=== PATIENT | male | born 1930 | race Caucasian/White ===

== ENCOUNTER 2016-08-19 15:51 | Emergency (ER) | payer MEDICARE, MEDICAID ==
[2016-08-19] MEDS ORDERED: NORMAL SALINE 1000 ML 1,000 ML IV PRN (15:59)
[2016-08-19] MEDS ORDERED: ONDANSETRON HCL INJ/PF 4 MG/2 ML SDV IV ONE (16:14)
--- NOTE | 2016-08-19 16:15 | ER Document Report ---
ED Medical Screen (RME) - General Chief Complaint: Abdominal Cramping Stated Complaint: DIARRHEA,SHORTNESS OF BREATH Time Seen by Provider: 08/19/16 15:59 Mode of Arrival: Ambulatory Information source: Patient TRAVEL OUTSIDE OF THE [place] IN LAST 30 DAYS: No - HPI Patient complains to provider of: Diarrhea Onset: Yesterday Onset/Duration: Sudden Quality of pain: Achy, Cramping Associated Symptoms: Abdominal pain, Diarrhea, Shortness of breath, Weakness Notes: 08/19/16 16:14 Patient is an 85-year-old male with history of diabetes who presents to the emergency room complaining of diarrhea that has been bothering him since yesterday, he reports mild crampy abdominal pain but no vomiting, no nausea, no fever chills, no sick contacts, no questionable food intake, no recent antibiotic - Related Data Allergies/Adverse Reactions: No Known Allergies Allergy (Verified 08/19/16 15:57) Past Medical History - Social History Chew tobacco use (# tins/day): No Frequency of alcohol use: None Drug Abuse: None - Past Medical History Cardiac Medical History: Reports: Hx Hypercholesterolemia, Hx Hypertension Endocrine Medical History: Reports: Hx Diabetes Mellitus Type 2 Renal/ Medical History: Denies: Hx Peritoneal Dialysis Past Surgical History: Reports: Hx Appendectomy, Hx Urinary Tract Surgery - prostate, Hx Vascular Surgery - Immunizations Hx Diphtheria, Pertussis, Tetanus Vaccination: Yes Physical Exam - Vital signs Vitals: Temp Pulse Resp BP Pulse Ox 98.0 F 65 22 H 125/62 94 08/19/16 15:58 08/19/16 15:58 08/19/16 15:58 08/19/16 15:58 08/19/16 15:58 Course - Vital Signs Vital signs: Temp Pulse Resp BP Pulse Ox 98.0 F 65 22 H 125/62 94 08/19/16 15:58 08/19/16 15:58 08/19/16 15:58 08/19/16 15:58 08/19/16 15:58
[2016-08-19 16:35] LABS: ABSOLUTE EOSINOPHILS # (AUTO) 0.2 10^3/uL (0.0-0.6); ABSOLUTE LYMPHOCYTES (AUTO) 1.9 10^3/uL (0.5-4.7); ABSOLUTE MONOCYTES (AUTO) 0.5 10^3/uL (0.1-1.4); ABSOLUTE NEUT (AUTO) 4.7 10^3/uL (1.7-8.2); BASOPHILS % (AUTO) 0.6 % (0-2); EOSINOPHILS % (AUTO) 2.9 % (0-6); HEMATOCRIT 44.9 % (37.9-51.0); HEMOGLOBIN 15.1 g/dL (13.5-17.0); HGB HCT DIFFERENCE 0.4; LYMPHOCYTES % (AUTO) 25.6 % (13-45); MEAN CORPUSCULAR HEMOGLOBIN 31.3 pg (27.0-33.4); MEAN CORPUSCULAR HGB CONC 33.5 g/dL (32.0-36.0); MEAN CORPUSCULAR VOLUME 93 fl (80-97); MONOCYTES % (AUTO) 7.2 % (3-13); RED BLOOD COUNT 4.81 10^6/uL (4.35-5.55); RED CELL DISTRIBUTION WIDTH 13.3 % (11.5-14.0); SEGMENTED NEUTROPHILS % (AUTO) 63.7 % (42-78); WHITE BLOOD COUNT 7.3 10^3/uL (4.0-10.5)
[2016-08-19 16:55] LABS: ALANINE AMINOTRANSFERASE 22 U/L (21-72); ALBUMIN 4.2 g/dL (3.5-5.0); ALKALINE PHOSPHATASE 62 U/L (38-126); ANION GAP 9 (5-19); ASPARTATE AMINO TRANSFERASE 21 U/L (17-59); BILIRUBIN,DIRECT 0.3 mg/dL (0.0-0.4); BILIRUBIN,TOTAL 0.5 mg/dL (0.2-1.3); BLOOD UREA NITROGEN 16 mg/dL (7-20); CALCIUM 9.5 mg/dL (8.4-10.2); CARBON DIOXIDE 30 mmol/L (22-30); CHLORIDE 101 mmol/L (98-107); CREATININE RESULT 0.99 mg/dL (0.52-1.25); GLUCOSE 160 mg/dL (75-110); LIPASE 61.6 U/L (23-300); POTASSIUM 4.8 mmol/L (3.6-5.0); SODIUM 139.5 mmol/L (137-145); TOTAL PROTEIN 6.7 g/dL (6.3-8.2)
--- NOTE | 2016-08-19 17:21 | ER Document Report ---
ED GI/ - General Mode of Arrival: Ambulatory TRAVEL OUTSIDE OF THE [place] IN LAST 30 DAYS: No - HPI Associated symptoms: Diarrhea, Dizzy <NORMA TRIPP - Last Filed: 08/19/16 17:41> <GARRY BARNARD - Last Filed: 08/19/16 19:52> - General Chief Complaint: Abdominal Cramping Stated Complaint: DIARRHEA,SHORTNESS OF BREATH Time Seen by Provider: 08/19/16 15:59 Notes: Patient is an 85 year old male presenting to the emergency department for diarrhea that was onset yesterday. Patient also complains of some dizziness and abdominal pain. Patient states he did eat today. Patient denies any nausea, vomiting, fevers, chills, dysuria, or recent antibiotics. Patient states he is feeling much better during the exam and after his IV fluids; patient is requesting to go home now. Patient has a history of type II diabetes mellitus, hypertension, and hypercholesterolemia. (NORMA TRIPP) - Related Data Allergies/Adverse Reactions: No Known Allergies Allergy (Verified 08/19/16 15:57) Past Medical History - General Information source: Patient - Social History Smoking Status: Current Every Day Smoker Chew tobacco use (# tins/day): No Frequency of alcohol use: None Drug Abuse: None Family History: None Patient has suicidal ideation: No Patient has homicidal ideation: No - Past Medical History Cardiac Medical History: Reports: Hx Hypercholesterolemia, Hx Hypertension Endocrine Medical History: Reports: Hx Diabetes Mellitus Type 2 Past Surgical History: Reports: Hx Appendectomy, Hx Urinary Tract Surgery - prostate, Hx Vascular Surgery - Immunizations Hx Diphtheria, Pertussis, Tetanus Vaccination: Yes <NORMA TRIPP - Last Filed: 08/19/16 17:41> Review of Systems - Review of Systems Constitutional: No symptoms reported EENT: No symptoms reported Cardiovascular: See HPI, Dizziness Respiratory: No symptoms reported Gastrointestinal: See HPI, Abdominal pain, Diarrhea Genitourinary: No symptoms reported Male Genitourinary: No symptoms reported Musculoskeletal: No symptoms reported Skin: No symptoms reported Hematologic/Lymphatic: No symptoms reported Neurological/Psychological: No symptoms reported -: Yes All other systems reviewed and negative <NORMA TRIPP - Last Filed: 08/19/16 17:41> Physical Exam - Vital signs Interpretation: Normal - General General appearance: Appears well, Alert - HEENT Head: Normocephalic, Atraumatic Eyes: Normal Pupils: PERRL - Respiratory Respiratory status: No respiratory distress Chest status: Nontender Breath sounds: Normal Chest palpation: Normal - Cardiovascular Rhythm: Regular Heart sounds: Normal auscultation Murmur: No - Abdominal Inspection: Normal Distension: No distension Bowel sounds: Normal Tenderness: Nontender Organomegaly: No organomegaly - Back Back: Normal, Nontender - Extremities General upper extremity: Normal inspection, Nontender, Normal color, Normal ROM , Normal temperature General lower extremity: Normal inspection, Nontender, Normal color, Normal ROM , Normal temperature, Normal weight bearing. No: Susana's sign - Neurological Neuro grossly intact: Yes Cognition: Normal Orientation: AAOx4 [place] Coma Scale Eye Opening: Spontaneous [place] Coma Scale Verbal: Oriented [place] Coma Scale Motor: Obeys Commands [place] Coma Scale Total: 15 Speech: Normal Motor strength normal: LUE, RUE, LLE, RLE Sensory: Normal - Psychological Associated symptoms: Normal affect, Normal mood - Skin Skin Temperature: Warm Skin Moisture: Dry Skin Color: Normal <GARRY BARNARD - Last Filed: 08/19/16 19:52> - Vital signs Vitals: Temp Pulse Resp BP Pulse Ox 98.0 F 65 22 H 125/62 94 08/19/16 15:58 08/19/16 15:58 08/19/16 15:58 08/19/16 15:58 08/19/16 15:58 Course - Laboratory Result Diagrams: 08/19/16 16:23 08/19/16 16:23 <NORMA TRIPP - Last Filed: 08/19/16 17:41> - Laboratory Result Diagrams: 08/19/16 16:23 08/19/16 16:23 <GARRY BARNARD - Last Filed: 08/19/16 19:52> - Re-evaluation Re-evalutation: 08/19/16 17:42 Reevaluated patient at this time. Discussed blood work lab results with patient and answered all questions. (NORMA TRIPP) 08/19/16 17:50 Patient is feeling well at this time. No further diarrhea. No abdominal pain or tenderness. Blood work within normal limits. Patient is not orthostatic. He is ambulating without difficulty. Stable for discharge home. Return if any worsening or concerning symptoms. (GARRY BARNARD) - Vital Signs Vital signs: Temp Pulse Resp BP Pulse Ox 98.0 F 59 L 16 117/56 L 98 08/19/16 15:58 08/19/16 18:05 08/19/16 18:05 08/19/16 18:05 08/19/16 18:05 - Laboratory Laboratory results interpreted by me: 08/19/16 16:23 Glucose 160 H Discharge <NORMA TRIPP - Last Filed: 08/19/16 17:41> <GARRY BARNARD - Last Filed: 08/19/16 19:52> - Discharge Clinical Impression: Dehydration Diarrhea Qualifiers: Diarrhea type: unspecified type Qualified Code(s): R19.7 - Diarrhea, unspecified Condition: Stable Disposition: HOME, SELF-CARE Instructions: Diarrhea, Nonspecific ([facility]), Dehydration ([facility]) Referrals: EDNA ALTMAN MD [Primary Care Provider] - Follow up as needed Scribe Attestation: 08/19/16 19:52 I personally performed the services described in the documentation, reviewed and edited the documentation which was dictated to the scribe in my presence, and it accurately records my words and actions. (GARRY BARNARD) Scribe Documentation - Scribe Written by Maura:: Maura Purvis 08/19/16 17:23 acting as scribe for :: Colt <NORMA TRIPP - Last Filed: 08/19/16 17:41>
[2016-08-19 18:18] VITALS: BP 117/56
== END 2016-08-19 18:15 | disposition home or self-care (01) ==
LOC: ER 15:51
DX: E86.0 Dehydration (principal); R19.7 Diarrhea, unspecified; R10.9 Unspecified abdominal pain; R06.02 Shortness of breath; E11.9 Type 2 diabetes mellitus without complications; I10 Essential (primary) hypertension; E78.00 Pure hypercholesterolemia, unspecified; F17.200 Nicotine dependence, unspecified, uncomplicated
CPT/HCPCS: 99284; 96361; 96374; 36415; 83690; 85025; 80053; J2405; J7030

== ENCOUNTER 2016-10-12 17:54 | Inpatient (IN) | payer MEDICARE, MEDICAID ==
[2016-10-12 19:25] LABS: ABSOLUTE MONOCYTES (AUTO) 0.9 10^3/uL (0.1-1.4); ABSOLUTE NEUT (AUTO) 6.6 10^3/uL (1.7-8.2); BASOPHILS % (AUTO) 0.3 % (0-2); EOSINOPHILS % (AUTO) 0.1 % (0-6); HEMATOCRIT 42.8 % (37.9-51.0); HEMOGLOBIN 14.7 g/dL (13.5-17.0); HGB HCT DIFFERENCE 1.3; LYMPHOCYTES % (AUTO) 11.8 % (13-45); MEAN CORPUSCULAR HEMOGLOBIN 32.4 pg (27.0-33.4); MEAN CORPUSCULAR HGB CONC 34.4 g/dL (32.0-36.0); MEAN CORPUSCULAR VOLUME 94 fl (80-97); MONOCYTES % (AUTO) 10.4 % (3-13); RED BLOOD COUNT 4.55 10^6/uL (4.35-5.55); SEGMENTED NEUTROPHILS % (AUTO) 77.4 % (42-78); WHITE BLOOD COUNT 8.5 10^3/uL (4.0-10.5)
--- NOTE | 2016-10-12 19:26 | RADIOLOGY REPORT (SQ) ---
EXAM DESCRIPTION: CT HEAD WITHOUT COMPLETED DATE/TIME: 10/12/2016 7:20 pm REASON FOR STUDY: ams COMPARISON: 10/13/2015 TECHNIQUE: Axial images acquired through the brain without intravenous contrast. Images reviewed wi th bone, brain and subdural windows. Images stored on PACS. All CT scanners at this facility use dose modulation, iterative reconstruction, and/or weight based d osing when appropriate to reduce radiation dose to as low as reasonably achievable (ALARA). [facility]: Dose Right [facility]: CareDose [facility]: Dose Right [facility]: Teradose 4D [facility]: [employer] RADIATION DOSE: mGy. LIMITATIONS: None. FINDINGS: VENTRICLES: Prominent. CEREBRUM: No masses. No hemorrhage. No midline shift. Areas of low density in the white matter mos t likely due to chronic micro-vascular ischemic change. No evidence for acute infarction. CEREBELLUM: No masses. No hemorrhage. No alteration of density. No evidence for acute infarction. EXTRAAXIAL SPACES: Mild age-related involutional change. No fluid collections. No masses. ORBITS AND GLOBE: No intra- or extraconal masses. Normal contour of globe without masses. CALVARIUM: No fracture. PARANASAL SINUSES: No fluid or mucosal thickening. SOFT TISSUES: No mass or hematoma. OTHER: No other significant finding. IMPRESSION: MILD CHRONIC CHANGES OF ATROPHY AND MICROVASCULAR ISCHEMIA. NO ACUTE PROCESS. TECHNICAL DOCUMENTATION: JOB ID: [id number] Quality ID # [id number]: Final reports with documentation of one or more dose reduction techniques (e.g., Au tomated exposure control, adjustment of the mA and/or kV according to patient size, use of iterative reconstruction technique) 2010 [employer]- All Rights Reserved
[2016-10-12 19:42] LABS: ALANINE AMINOTRANSFERASE 50 U/L (21-72); ALBUMIN 4.3 g/dL (3.5-5.0); ALKALINE PHOSPHATASE 103 U/L (38-126); ANION GAP 10 (5-19); ASPARTATE AMINO TRANSFERASE 120 U/L (17-59); BILIRUBIN,DIRECT 0.5 mg/dL (0.0-0.4); BILIRUBIN,TOTAL 1.7 mg/dL (0.2-1.3); BLOOD UREA NITROGEN 16 mg/dL (7-20); CALCIUM 9.2 mg/dL (8.4-10.2); CARBON DIOXIDE 27 mmol/L (22-30); CHLORIDE 87 mmol/L (98-107); CREATININE RESULT 0.86 mg/dL (0.52-1.25); GLUCOSE 105 mg/dL (75-110); POTASSIUM 4.8 mmol/L (3.6-5.0); SODIUM 124.2 mmol/L (137-145); TOTAL PROTEIN 6.5 g/dL (6.3-8.2)
[2016-10-12] MEDS ORDERED: THIAMINE HCL 100 MG, FOLIC ACID 1 MG in NORMAL SALINE 50 ML IV ONE (21:22)
--- NOTE | 2016-10-12 21:25 | ER Document Report ---
ED General - General Chief Complaint: Other Stated Complaint: HALLUCINATIONS Time Seen by Provider: 10/12/16 18:18 Notes: Patient is an 86-year-old male with a past medical history of chronic anxiety, hypertension, hyperlipidemia, alcohol abuse who presents with concerns of visual hallucinations. Patient states that he saw a man on his couch who he was unable to wake up. States when he walked outside and came back in that man was gone and he recognized that this was a hallucination. Patient reports a chronic history of alcoholism although was in complete remission for the past 30 years with only a relapse approximately 6 months ago and again starting approximately 3 weeks ago. Per family at the bedside, patient has been drinking large quantities of wine. Patient states he did decide to stop drinking today approximately 6-8 hours prior to having the episode of visual hallucinations. He has had a history of comp acute withdrawals in the past. Admits to poor oral intake other than alcohol for the last several weeks. Denies any symptoms at the time of my assessment. He has not noted that anything to improve or worsen his symptoms. He has not spoken to his primary care doctor regarding today's concerns. TRAVEL OUTSIDE OF THE [place] IN LAST 30 DAYS: No - Related Data Allergies/Adverse Reactions: No Known Allergies Allergy (Verified 08/19/16 15:57) Past Medical History - General Information source: Patient, Relative - Social History Smoking Status: Current Every Day Smoker Chew tobacco use (# tins/day): No Frequency of alcohol use: Occasional Drug Abuse: None Lives with: Alone Family History: Reviewed & Not Pertinent - Past Medical History Cardiac Medical History: Reports: Hx Hypercholesterolemia, Hx Hypertension Endocrine Medical History: Reports: Hx Diabetes Mellitus Type 2 Renal/ Medical History: Denies: Hx Peritoneal Dialysis Past Surgical History: Reports: Hx Appendectomy, Hx Urinary Tract Surgery - prostate, Hx Vascular Surgery - Immunizations Hx Diphtheria, Pertussis, Tetanus Vaccination: Yes Review of Systems - Review of Systems Notes: Constitutional: Negative for fever. HENT: Negative for sore throat. Eyes: Negative for visual changes. Cardiovascular: Negative for chest pain. Respiratory: Negative for shortness of breath. Gastrointestinal: Negative for abdominal pain, vomiting or diarrhea. Genitourinary: Negative for dysuria. Musculoskeletal: Negative for back pain. Skin: Negative for rash. Neurological: Negative for headaches, weakness or numbness. 10 point ROS negative except as marked above and in HPI. Physical Exam - Vital signs Vitals: Temp Pulse Resp BP Pulse Ox 98.8 F 70 16 122/52 L 97 10/12/16 18:20 10/12/16 18:20 10/12/16 18:20 10/12/16 18:20 10/12/16 18:20 Interpretation: Normal Notes: PHYSICAL EXAMINATION: GENERAL: Well-appearing, well-nourished and in no acute distress. HEAD: Atraumatic, normocephalic. EYES: Pupils equal round and reactive to light, extraocular movements intact, sclera anicteric, conjunctiva are normal. ENT: nares patent, oropharynx clear without exudates. Moist mucous membranes. NECK: Normal range of motion, supple without lymphadenopathy LUNGS: Breath sounds clear to auscultation bilaterally and equal. No wheezes rales or rhonchi. HEART: Regular rate and rhythm without murmurs ABDOMEN: Soft, nontender, normoactive bowel sounds. No guarding, no rebound. No masses appreciated. EXTREMITIES: Normal range of motion, no pitting or edema. No cyanosis. NEUROLOGICAL: No focal neurological deficits. Moves all extremities spontaneously and on command. PSYCH: Normal mood, normal affect. SKIN: Warm, Dry, normal turgor, no rashes or lesions noted. Course - Re-evaluation Re-evalutation: 10/12/16 21:23 Patient presents with signs and symptoms worrisome for alcohol withdrawal given visual hallucinations and slight tremulousness at time of presentation in the setting of abrupt alcohol discontinuation. Patient's laboratories also showed significant hyponatremia with a sodium of 124 consistent with patient's history of binge drinking on wine for the past 3 weeks. His vitals otherwise within normal limits at this time. He denies any active hallucinations. I have expressed to the patient my serious concerns about discharge home given that he does live alone, is 86 years of age, is already having visual hallucinations, and is moderately hyponatremic. After examination of my concerns that he may decompensate and become significantly worse at home patient was agreeable to be admitted to the hospital. I discussed this case with Dr. Carter who will admit. - Vital Signs Vital signs: Temp Pulse Resp BP Pulse Ox 97.2 F 54 L 18 121/55 L 100 10/13/16 03:41 10/13/16 03:41 10/13/16 03:41 10/13/16 03:41 10/13/16 03:41 - Laboratory Result Diagrams: 10/12/16 19:12 10/13/16 01:09 Laboratory results interpreted by me: 10/12/16 10/12/16 19:12 19:12 Lymphocytes % 11.8 L Sodium 124.2 L Chloride 87 L Total Bilirubin 1.7 H Direct Bilirubin 0.5 H AST 120 H - Diagnostic Test Radiology reviewed: Image reviewed, Reports reviewed Radiology results interpreted by me: 10/13/16 04:26 CT head: No acute intracranial bleed Discharge - Discharge Clinical Impression: Visual hallucinations, Hyponatremia Alcohol withdrawal Qualifiers: Complication of substance-induced condition: with perceptual disturbance Qualified Code(s): 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
[2016-10-12 21:42] LABS: ADD ON TESTING BLD IN LAB ACKNOWLEDGE
[2016-10-12 21:55] LABS: MAGNESIUM 2.1 mg/dL (1.6-2.3)
[2016-10-12 21:56] LABS: ALCOHOL < 10 mg/dL (NONE DETECTED)
[2016-10-12] MEDS ORDERED: THIAMINE HCL 100 MG TABLET PO ONE (22:01)
[2016-10-12] MEDS ORDERED: GLUCAGON,HUMAN RECOMB 1 MG INJ IM PRN (22:19)
[2016-10-12] MEDS ORDERED: DEXTROSE 50%-WATER 25 GM/50 ML DISP.SYRIN IV PRN ×2 (22:19)
[2016-10-12] MEDS ORDERED: DEXTROSE 40% GEL 15 GM TUBE PO PRN ×2 (22:19)
[2016-10-12] MEDS ORDERED: MAG HYDROX/AL HYDROX/SIMETH SUSP 30 ML UDCUP PO PRN (22:21)
[2016-10-12] MEDS ORDERED: MAGNESIUM HYDROXIDE SUSP 30 ML UDCUP PO PRN (22:21)
[2016-10-12] MEDS ORDERED: IPRATROPIUM/ALBUTEROL 0.5-2.5 MG/3 ML AMPUL NEB PRN (22:21)
--- NOTE | 2016-10-12 22:41 | PDOC H&P ---
History of Present Illness Admission Date/PCP: 10/12/16 21:51 EDNA ALTMAN MD, [place], [place] Patient complains of: hallucinations History of Present Illness: RADHIKA MARTEL is a 86 year old male, with underlying tobacco dependency, 1-1/2-2 packs per day, type 1 diabetes mellitus, probable hypertension and hyperlipidemia, along with 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 Patient has been discussed with emergency room physician who evaluated the patient. Apparently his last alcohol intake till 3 weeks ago was approximately 2 years ago. Since then, he has been binge drinking wine. Realized this was not the thing to do, and patient stopped drinking altogether approximately 24 hours ago. Patient reportedly called his family stating that a man was sitting on the couch next to him, and when he went into another room and returned, the man was no longer there. As best can be determined, there was never a man there. Patient brought to the emergency room for further evaluation. Denies any hallucinations at present. He has had 4 episodes of diarrhea yesterday; none today. Mild abdominal discomfort. No chest pain. No fever or chills, nausea vomiting, or dysuria. Has fallen a number of times recently. Dictation via voice recognition software. Laboratory results are listed in [employer] and are reviewed. X-ray summary results are listed below, with full report(s) reviewed. . Social history/personal habits: . Lives alone. Has children. 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 Personal habits as noted above; denies illicit drug use. No known drug allergies. Home medications initially autopopulated into [facility] may not accurately reflect patient's true medications, dosages, and/or frequencies. fuel quality tech to reconcile medications. Unfortunately, patient not certain of all medications/dosages/frequencies. REVIEW OF SYSTEMS: Constitutional: No fever or chills. Eyes: Reading glasses. ENT: No swallowing problems or complaints. Denies hearing loss. Pulmonary: No current complaints. Cardiovascular: No current complaints, including chest pain. Gastrointestinal: See history and present illness. Skin: States he has many "skin bumps," which he has had for some time now. States he has been told he needs to see a supervisor machining in the past. Former client project coordinator. Hematologic: Easy bruising. Neurologic: See history and present illness. Musculoskeletal: Joint pain from arthritis. Psychiatric: Denies anxiety or depression. See history and present illness. Endocrine: No current complaints, including polyuria. Genitourinary: No current complaints, including dysuria. PHYSICAL EXAMINATION: Neither height nor weight are recorded on the chart.Temperature 98.8. Pulse 70 and regular. Blood pressure 122/52. Respirations are 16 and unlabored. 97% saturation on room air. Thin otherwise well-developed though somewhat chronically ill-appearing male who nevertheless appears approximately his stated age. Pleasant awake alert and cooperative. No obvious distress other than somewhat anxious. Skin is warm and dry. No grossly obvious evidence of rash in areas of skin examined. Extensive bruising on his upper extremities, in particular his left forearm. Has multiple small cornified nodules on his left forearm; overall, skin has the typical appearance of someone whose spent long hours in the sun over many years. ENT: Hearing grossly normal to normal conversation. Tongue midline on protrusion pink and slightly tacky. Eyes: No scleral icterus. Pupils equal and reactive to light at 4 mm. [place] conjunctivae. No raccoon eyes. Neck is supple and nontender to gentle active range of motion and palpation. Midline trachea. No palpable thyroid nodule mass enlargement or tenderness. Lymphatic: No palpable cervical or clavicular nodes. Neck and lymphatic exams limited by patient body habitus. Psychiatric: Reasonable insight into acute and chronic medical issues. Oriented to time location and why here. Lungs: Auscultation reveals clear and equal breath sounds bilaterally. No use of accessory respiratory muscles. Cardiovascular: Heart regular rate and rhythm, without gallop murmur or rub. No carotid or abdominal aortic bruits. No ankle edema. Abdomen:soft nontender with positive bowel sounds. No upper abdominal mass or organomegaly palpated. Extremities: Feet are warm and dry. No calf tenderness to compression. No grossly obvious visual evidence of calf swelling. Gentle manipulation of lower extremities fails to reveal any obvious evidence of injury or instability to knees hips or ankles. Neurologic: Moves upper extremities grossly normally. Patellar reflexes absent. Dorsiflexion and plantarflexion of feet 5 / 5 and symmetric. Past Medical History Cardiac Medical History: Reports: Hyperlipidema - Patient denies same, but prior med list has patient on statin, Hypertension - Patient denies same, but prior med list has patient on antihypertensive Denies: Atrial Fibrillation, Congestive Heart Failure, Coronary Artery Disease, DVT, Myocardial Infarction, Pulmonary Embolism Pulmonary Medical History: Denies: Asthma, Chronic Obstructive Pulmonary Disease (COPD), Sleep Apnea EENT Medical History: Reports: Eyes - Reading glasses Denies: Ears, Throat Neurological Medical History: Denies: Hemorrhagic CVA, Ischemic CVA, Seizures Endocrine Medical History: Reports: Diabetes Mellitus Type 1 Denies: Diabetes Mellitus Type 2, Hyperthyroidism, Hypothyroidism Renal/ Medical History: Reports: Other - Prior prostate surgery, likely for prostatic hypertrophy GI Medical History: Denies: Cirrhosis, Gastroesophageal Reflux Disease, Hepatitis, Peptic Ulcer Disease Musculoskeltal Medical History: Reports: Arthritis Skin Medical History: Reports: Other - See history and present illness, October 12, 2016. Psychiatric Medical History: Reports: Alcohol Dependency - Binge drinking, Tobacco Dependency Denies: Depression, General Anxiety Disorder, Substance Abuse Hematology: Reports: Other - Easy bruising Infectious Medical History: Denies: Hepatitis B, Hepatitis C Past Surgical History Past Surgical History: Reports: Appendectomy, Vascular Surgery - Uncertain specific type, Other - Probable TURP Social History Information Source: Patient, Emergency Med Personnel, [facility] Lives with: Alone Smoking Status: Current Every Day Smoker Frequency of Alcohol Use: Heavy - Binge drinking Drugs: None - Advance Directive Resuscitation Status: Full Code Surrogate healthcare decision maker:: Granddaughter Parul Taylor Family History Family History: None Parental Family History Reviewed: Yes - Parents of old age Children Family History Reviewed: Yes - Healthy Sibling(s) Family History Reviewed.: Yes - Medication/Allergy Home Medications: Atorvastatin Calcium [Lipitor 20 mg Tablet] 20 mg PO QHS 10/13/16 Cholestyramine (with Sugar) [Cholestyramine Packet] 4 gm PO DAILYP PRN 10/13/16 Clonazepam [Klonopin 1 mg Tablet] 1 mg PO Q12 10/13/16 Escitalopram Oxalate [Lexapro 10 mg Tablet] 10 mg PO DAILY 10/13/16 Esomeprazole Magnesium [Nexium] 40 mg PO DAILY 10/13/16 Insulin Glargine,Hum.rec.anlog [Lantus Solostar] 20 units SQ QHS 10/13/16 Timolol Maleate [Timoptic 0.25% Oph Soln 5 ml] 1 drop OD QAM 10/13/16 Travoprost [Travatan Z] 1 drop OD QHS 10/13/16 Allergies/Adverse Reactions: No Known Allergies Allergy (Verified 08/19/16 15:57) Physical Exam Vital Signs: Temp Pulse Resp BP Pulse Ox 98.8 F 70 16 122/52 L 97 10/12/16 18:20 10/12/16 18:20 10/12/16 18:20 10/12/16 18:20 10/12/16 18:20 Results Impressions: Head CT 10/12/16 19:01 IMPRESSION: MILD CHRONIC CHANGES OF ATROPHY AND MICROVASCULAR ISCHEMIA. NO ACUTE PROCESS. 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 Thiamine to start tonight. As needed Ativan. No linda evidence of alcohol withdrawal at present. I have strongly encouraged patient not to get out of bed without notifying staff , to avoid a fall with injury. Knee high SCDs for DVT prophylaxis, along with subcutaneous Lovenox. Impression and plans were discussed with patient, who concurs. Time spent in evaluation and management of patient: 66 minutes. (3) Bruising Is this a current diagnosis for this admission?: YesPlan: PT/INR, PTT (4) Hyponatremia Is this a current diagnosis for this admission?: YesPlan: Likely secondary to alcohol intake. Serial chemistry. (5) Visual hallucinations Is this a current diagnosis for this admission?: YesPlan: Resolved (6) Diabetes mellitus type 1 Qualifiers: Diabetes mellitus complication status: without complication Qualified Code(s): E10.9 - Type 1 diabetes mellitus without complications Is this a current diagnosis for this admission?: YesPlan: Diabetic cardiac diet. Accu-Cheks with appropriate sliding scale coverage. Resume home medications as appropriate once these have been determined and reviewed. (7) Tobacco dependency Is this a current diagnosis for this admission?: YesPlan: As needed nicotine patch. (8) Elevated LFTs Is this a current diagnosis for this admission?: YesPlan: Likely secondary to alcohol intake. Follow-up hepatic profile. - Time Time Spent: 50 to 70 Minutes Medications reviewed and adjusted accordingly: No - Patient uncertain about specific medications and dosages. Anticipated discharge: Home Within: within 48 hours
[2016-10-13] MEDS: PROMETHAZINE HCL 25 MG TABLET PO PRN ×2 (01:17→19:28)
[2016-10-13 01:27] LABS: PROTHROMBIN TIME 13.6 SEC (11.4-15.4)
[2016-10-13 01:28] LABS: PARTIAL THROMBOPLASTIN TIME 31.3 SEC (23.5-35.8)
[2016-10-13 01:31] LABS: ANION GAP 9 (5-19); BLOOD UREA NITROGEN 16 mg/dL (7-20); CALCIUM 9.3 mg/dL (8.4-10.2); CARBON DIOXIDE 27 mmol/L (22-30); CHLORIDE 93 mmol/L (98-107); CREATININE RESULT 0.84 mg/dL (0.52-1.25); GLUCOSE 75 mg/dL (75-110); POTASSIUM 4.4 mmol/L (3.6-5.0); SODIUM 128.6 mmol/L (137-145)
[2016-10-13] MEDS: LORAZEPAM 1 MG TABLET PO PRN ×2 (04:00→16:43)
[2016-10-13 04:36] LABS: APPEARANCE,URINE CLEAR; BILIRUBIN,URINE NEGATIVE (NEGATIVE); GLUCOSE, URINE NEGATIVE (NEGATIVE); KETONES,URINE TRACE mg/dL (NEGATIVE); LEUKOCYTE ESTERASE,URINE NEGATIVE (NEGATIVE); NITRITE,URINE NEGATIVE (NEGATIVE); PROTEIN,URINE NEGATIVE (NEGATIVE); URINE SPECIFIC GRAVITY 1.003; UROBILINOGEN,URINE NEGATIVE mg/dL (<2.0)
[2016-10-13 04:44] LABS: URINE BARBITURATES SCREEN NEGATIVE; URINE METHADONE SCREEN NEGATIVE; URINE OPIATES LOW NEGATIVE; URINE PHENCYCLIDINE SCREEN NEGATIVE
[2016-10-13 07:27] LABS: ALANINE AMINOTRANSFERASE 57 U/L (21-72); ALBUMIN 3.9 g/dL (3.5-5.0); ALKALINE PHOSPHATASE 98 U/L (38-126); ANION GAP 9 (5-19); ASPARTATE AMINO TRANSFERASE 109 U/L (17-59); BILIRUBIN,DIRECT 0.4 mg/dL (0.0-0.4); BILIRUBIN,TOTAL 1.8 mg/dL (0.2-1.3); BLOOD UREA NITROGEN 15 mg/dL (7-20); CALCIUM 9.1 mg/dL (8.4-10.2); CARBON DIOXIDE 26 mmol/L (22-30); CHLORIDE 93 mmol/L (98-107); GLUCOSE 73 mg/dL (75-110); POTASSIUM 4.2 mmol/L (3.6-5.0); SODIUM 128.2 mmol/L (137-145); TOTAL PROTEIN 5.7 g/dL (6.3-8.2)
[2016-10-13] MEDS: ENOXAPARIN SODIUM INJ 40 MG/0.4 ML DISP.SYRIN SUBCUT SCH (10:10)
[2016-10-13] MEDS: MULTIVITAMIN TABLET PO SCH (10:12)
[2016-10-13] MEDS: FOLIC ACID 1 MG TABLET PO SCH (10:12)
[2016-10-13] MEDS: THIAMINE HCL 100 MG TABLET PO SCH (10:14)
[2016-10-13] MEDS ORDERED: (PENDING PHARMACY ID) (Cholestyramine (With Sugar) [Cholestyramine Packet] 4 GM) PO PRN (15:27)
--- NOTE | 2016-10-13 15:39 | PDOC PROGRESS REPORT ---
Subjective Progress Note for:: 10/13/16 Subjective:: Patient is seen on morning rounds. He is sleeping in bed. He awakens easily to verbal stimuli. He denies any shortness of breath, chest pain and cough. RADHIKA MARTEL is a 86 year old male, with underlying tobacco dependency, 1-1/2-2 packs per day, type 1 diabetes mellitus, probable hypertension and hyperlipidemia, along with 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 Physical Exam Vital Signs: Temp Pulse Resp BP Pulse Ox 97.8 F 68 14 117/66 100 10/13/16 12:00 10/13/16 12:00 10/13/16 12:00 10/13/16 12:00 10/13/16 12:00 Intake & Output 10/12/16 10/13/16 10/14/16 06:59 06:59 06:59 Intake Total 100 Output Total 125 Balance -25 Weight 65.6 kg General appearance: PRESENT: no acute distress, thin, well-developed, well- nourished Head exam: PRESENT: atraumatic, normocephalic Eye exam: PRESENT: conjunctiva pink, EOMI, PERRLA. ABSENT: scleral icterus Ear exam: PRESENT: normal external ear exam Mouth exam: PRESENT: moist, tongue midline Neck exam: ABSENT: carotid bruit, JVD, lymphadenopathy, thyromegaly Respiratory exam: PRESENT: clear to auscultation ashley. ABSENT: rales, rhonchi, wheezes Cardiovascular exam: PRESENT: RRR. ABSENT: diastolic murmur, rubs, systolic murmur Pulses: PRESENT: normal carotid pulses Vascular exam: PRESENT: normal capillary refill GI/Abdominal exam: PRESENT: normal bowel sounds, soft. ABSENT: distended, guarding, mass, organolmegaly, rebound, tenderness Rectal exam: PRESENT: deferred Extremities exam: PRESENT: full ROM, other - multiple old echymosi. ABSENT: calf tenderness, clubbing, pedal edema Musculoskeletal exam: PRESENT: full ROM, normal inspection, tenderness Neurological exam: PRESENT: alert, altered, awake, CN II-XII grossly intact. ABSENT: motor sensory deficit Psychiatric exam: PRESENT: appropriate affect, normal mood. ABSENT: homicidal ideation, suicidal ideation Results Laboratory Results: 10/13/16 06:44 10/13/16 10/13/16 10/13/16 01:09 04:10 06:44 Sodium 128.6 L 128.2 L Potassium 4.4 4.2 Chloride 93 L 93 L Carbon Dioxide 27 26 Anion Gap 9 9 BUN 16 15 Creatinine 0.84 0.80 Est GFR ( Amer) > 60 > 60 Est GFR (Non-Af Amer) > 60 > 60 Glucose 75 73 L Calcium 9.3 9.1 Total Bilirubin 1.8 H AST 109 H ALT 57 Alkaline Phosphatase 98 Total Protein 5.7 L Albumin 3.9 Urine Color YELLOW Urine Appearance CLEAR Urine pH 6.0 Ur Specific [place] 1.003 Urine Protein NEGATIVE Urine Glucose (UA) NEGATIVE Urine Ketones TRACE H Urine Blood SMALL H Urine Nitrite NEGATIVE Ur Leukocyte Esterase NEGATIVE Urine WBC (Auto) 1 Urine RBC (Auto) 1 Impressions: Head CT 10/12/16 19:01 IMPRESSION: MILD CHRONIC CHANGES OF ATROPHY AND MICROVASCULAR ISCHEMIA. NO ACUTE PROCESS. Assessment & Plan - Diagnosis (1) Visual hallucinations Is this a current diagnosis for this admission?: YesPlan: Patient with history of excess alcohol consumption in the form of binge drinking.. He is also hyponatremic most likely due to poor oral intake, and hydration as well as alcohol abuse. (2) Hyponatremia Is this a current diagnosis for this admission?: YesPlan: Patient was given normal saline IV fluid. He is not volume overloaded or have history of CHF. 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 Is this a current diagnosis for this admission?: Yes (5) Bruising Is this a current diagnosis for this admission?: Yes (6) Elevated LFTs Is this a current diagnosis for this admission?: YesPlan: Secondary to etoh use (7) Diabetes mellitus type 1 Qualifiers: Diabetes mellitus complication status: without complication Qualified Code(s): E10.9 - Type 1 diabetes mellitus without complications Is this a current diagnosis for this admission?: YesPlan: Patient will continue insulin and sliding scale coverage (8) Tobacco dependency Is this a current diagnosis for this admission?: Yes - Time Time Spent with patient: 25-34 minutes Critical Time spent with patient: 15-24 minutes Medications reviewed and adjusted accordingly: Yes Anticipated discharge: Home with Homehealth
[2016-10-13] MEDS: INSULIN LISPRO 100 UNIT/ML 3 ML VIAL SUBCUT PRN (16:43)
[2016-10-13] MEDS ORDERED: CHOLESTYRAMINE/ASPARTAME 4 GM PACKET PO PRN (17:04)
[2016-10-13] MEDS: NICOTINE 21 MG/24 HR PATCH.TD24 TD PRN (20:27)
[2016-10-13] MEDS: LATANOPROST 0.005% OPH SOLN 2.5 ML OD SCH (21:19)
[2016-10-13] MEDS: ATORVASTATIN CALCIUM 20 MG TABLET PO SCH (21:20)
[2016-10-13] MEDS ORDERED: LORAZEPAM INJ 2 MG/1 ML VIAL IV PRN (21:50)
[2016-10-13] MEDS ORDERED: (PENDING PHARMACY ID) (Travoprost [Travatan Z] 1 DROP) OD SCH (22:00)
[2016-10-13] MEDS ORDERED: CLONAZEPAM 1 MG TABLET PO SCH (22:00)
[2016-10-13] MEDS: LORAZEPAM INJ 2 MG/1 ML VIAL IV PRN (22:09)
[2016-10-13] MEDS: INSULIN GLARGINE,HUM.REC.ANLOG 300 UNIT/3 ML INSULN.PEN SUBCUT SCH (22:36)
[2016-10-14] MEDS ORDERED: LORAZEPAM INJ 2 MG/1 ML VIAL IV PRN (01:41)
[2016-10-14] MEDS: LORAZEPAM INJ 2 MG/1 ML VIAL IV PRN ×2 (02:10→22:14)
[2016-10-14] MEDS: LORAZEPAM INJ 2 MG/1 ML VIAL (TAPER DOSING) IV SCH ×4 (03:00→20:13)
[2016-10-14] MEDS: LANSOPRAZOLE 30 MG TAB.RAP.DR PO SCH (07:55)
[2016-10-14] MEDS: TIMOLOL MALEATE 0.25% OPH SOLN 5 ML OD SCH (07:57)
[2016-10-14] MEDS: ESCITALOPRAM OXALATE 10 MG TABLET PO SCH (10:19)
[2016-10-14] MEDS: MULTIVITAMIN TABLET PO SCH (10:20)
[2016-10-14] MEDS: NORMAL SALINE 1000 ML 1,000 ML IV PRN (10:20)
[2016-10-14] MEDS: FOLIC ACID 1 MG TABLET PO SCH (10:20)
[2016-10-14] MEDS: THIAMINE HCL 100 MG TABLET PO SCH (10:20)
[2016-10-14] MEDS ORDERED: CLONAZEPAM 1 MG TABLET PO ONE (11:30)
[2016-10-14] MEDS ORDERED: NICOTINE 21 MG/24 HR PATCH.TD24 TD ONE (11:30)
[2016-10-14] MEDS: ENOXAPARIN SODIUM INJ 40 MG/0.4 ML DISP.SYRIN SUBCUT SCH (11:51)
--- NOTE | 2016-10-14 13:24 | PDOC PROGRESS REPORT ---
Subjective Progress Note for:: 10/14/16 Subjective:: Patient is seen on morning rounds. He is been agitated since last night. His granddaughter is at the bedside. He did require ativan last night. He has no source identified for his encephalitis. There is no signs of infection. He has been binge drinking according to lizzy. He has a 30 year history of alcohol abuse, then quit drinking for 20 years until his . His ammonia level is undetectable. RADHIKA MARTEL is a 86 year old male, with underlying tobacco dependency, 1-1/2-2 packs per day, type 1 diabetes mellitus, probable hypertension and hyperlipidemia, along with 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 Physical Exam Vital Signs: Temp Pulse Resp BP Pulse Ox 97.4 F 90 18 113/72 96 10/14/16 07:42 10/14/16 08:00 10/14/16 08:00 10/14/16 07:42 10/14/16 08:00 Intake & Output 10/13/16 10/14/16 10/15/16 06:59 06:59 06:59 Intake Total 100 703 Output Total 125 300 Balance -25 403 Weight 65.6 kg General appearance: PRESENT: disheveled, well-developed, other - agitated Head exam: PRESENT: atraumatic, normocephalic Eye exam: PRESENT: conjunctiva pink, EOMI, PERRLA. ABSENT: scleral icterus Ear exam: PRESENT: normal external ear exam Mouth exam: PRESENT: moist, tongue midline Neck exam: ABSENT: carotid bruit, JVD, lymphadenopathy, thyromegaly Respiratory exam: PRESENT: clear to auscultation ashley. ABSENT: rales, rhonchi, wheezes Cardiovascular exam: PRESENT: RRR. ABSENT: diastolic murmur, rubs, systolic murmur Pulses: PRESENT: normal carotid pulses GI/Abdominal exam: PRESENT: normal bowel sounds, soft. ABSENT: distended, guarding, mass, organolmegaly, rebound, tenderness Extremities exam: PRESENT: full ROM, other - multiple abrasions and skin tears to bilateral upper arms Musculoskeletal exam: PRESENT: full ROM Neurological exam: PRESENT: alert, altered, awake, oriented to person, CN II- XII grossly intact Psychiatric exam: PRESENT: agitated Skin exam: PRESENT: abrasion, dry, skin tears, warm Results Laboratory Results: 10/13/16 06:44 10/14/16 11:07 Ammonia < 8.7 L Impressions: Head CT 10/12/16 19:01 IMPRESSION: MILD CHRONIC CHANGES OF ATROPHY AND MICROVASCULAR ISCHEMIA. NO ACUTE PROCESS. Assessment & Plan - Diagnosis (1) Visual hallucinations Is this a current diagnosis for this admission?: YesPlan: Patient with history of excess alcohol consumption in the form of binge drinking.. He is also hyponatremic most likely due to poor oral intake, and hydration as well as alcohol abuse. (2) Hyponatremia Is this a current diagnosis for this admission?: YesPlan: Patient was given normal saline IV fluid. He is not volume overloaded or have history of CHF. 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 Is this a current diagnosis for this admission?: YesPlan: Ativan prn (5) Bruising Is this a current diagnosis for this admission?: Yes (6) Elevated LFTs Is this a current diagnosis for this admission?: YesPlan: Secondary to etoh use (7) Diabetes mellitus type 1 Qualifiers: Diabetes mellitus complication status: without complication Qualified Code(s): E10.9 - Type 1 diabetes mellitus without complications Is this a current diagnosis for this admission?: YesPlan: Patient will continue insulin and sliding scale coverage (8) Tobacco dependency Is this a current diagnosis for this admission?: YesPlan: Nicotine prn - Time Time Spent with patient: 25-34 minutes Critical Time spent with patient: 25-34 minutes Medications reviewed and adjusted accordingly: Yes
[2016-10-14] MEDS: INSULIN GLARGINE,HUM.REC.ANLOG 300 UNIT/3 ML INSULN.PEN SUBCUT SCH (21:08)
[2016-10-14] MEDS: CLONAZEPAM 1 MG TABLET PO SCH (21:09)
[2016-10-14] MEDS: ATORVASTATIN CALCIUM 20 MG TABLET PO SCH (21:09)
[2016-10-14] MEDS: LATANOPROST 0.005% OPH SOLN 2.5 ML OD SCH (21:09)
[2016-10-15] MEDS: LORAZEPAM INJ 2 MG/1 ML VIAL IV PRN ×4 (02:58→22:03)
[2016-10-15 05:04] LABS: ALANINE AMINOTRANSFERASE 60 U/L (21-72); ALKALINE PHOSPHATASE 92 U/L (38-126); ANION GAP 6 (5-19); ASPARTATE AMINO TRANSFERASE 119 U/L (17-59); BILIRUBIN,DIRECT 0.3 mg/dL (0.0-0.4); BILIRUBIN,TOTAL 1.1 mg/dL (0.2-1.3); BLOOD UREA NITROGEN 15 mg/dL (7-20); CALCIUM 9.6 mg/dL (8.4-10.2); CARBON DIOXIDE 31 mmol/L (22-30); CHLORIDE 100 mmol/L (98-107); CREATININE RESULT 0.71 mg/dL (0.52-1.25); GLUCOSE 145 mg/dL (75-110); POTASSIUM 4.5 mmol/L (3.6-5.0); SODIUM 137.4 mmol/L (137-145); TOTAL PROTEIN 6.7 g/dL (6.3-8.2)
[2016-10-15] MEDS: NORMAL SALINE 1000 ML 1,000 ML IV PRN ×2 (07:13→20:03)
[2016-10-15] MEDS: FOLIC ACID 1 MG TABLET PO SCH (09:45)
[2016-10-15] MEDS: CLONAZEPAM 1 MG TABLET PO SCH ×2 (09:45→20:39)
[2016-10-15] MEDS: ESCITALOPRAM OXALATE 10 MG TABLET PO SCH (09:45)
[2016-10-15] MEDS: MULTIVITAMIN TABLET PO SCH (09:46)
[2016-10-15] MEDS: ENOXAPARIN SODIUM INJ 40 MG/0.4 ML DISP.SYRIN SUBCUT SCH (09:46)
[2016-10-15] MEDS: THIAMINE HCL 100 MG TABLET PO SCH (09:46)
[2016-10-15] MEDS: LANSOPRAZOLE 30 MG TAB.RAP.DR PO SCH (09:46)
[2016-10-15] MEDS: NICOTINE 21 MG/24 HR PATCH.TD24 TD SCH (09:47)
[2016-10-15] MEDS: TIMOLOL MALEATE 0.25% OPH SOLN 5 ML OD SCH (09:48)
--- NOTE | 2016-10-15 12:06 | PDOC PROGRESS REPORT ---
Subjective Progress Note for:: 10/15/16 Subjective:: Patient is seen on morning rounds. He is been agitated since last night again. His granddaughter is at the bedside. He did require ativan last night. He has no source identified for his encephalitis. His ammonia levels are normal. There is no signs of infection. He was hyponatremic this has now resolved with hydration He has been binge drinking according to granddaughter. He has a 30 year history of alcohol abuse, then quit drinking for 20 years until his . We discussed vascular dementia most likely worsened by dehydration and binge alcohol drinking Physical Exam Vital Signs: Temp Pulse Resp BP Pulse Ox 97.4 F 120 H 20 139/75 H 77 L 10/15/16 07:55 10/15/16 07:55 10/15/16 07:55 10/15/16 07:55 10/15/16 07:55 General appearance: PRESENT: no acute distress, thin, well-developed, well- nourished Head exam: PRESENT: atraumatic, normocephalic Eye exam: PRESENT: conjunctiva pink, EOMI, PERRLA. ABSENT: scleral icterus Ear exam: PRESENT: normal external ear exam Mouth exam: PRESENT: moist, tongue midline Neck exam: ABSENT: carotid bruit, JVD, lymphadenopathy, thyromegaly Respiratory exam: PRESENT: clear to auscultation ashley, decreased breath sounds, symmetrical, unlabored. ABSENT: rales, rhonchi, wheezes Cardiovascular exam: PRESENT: RRR. ABSENT: diastolic murmur, rubs, systolic murmur Pulses: PRESENT: normal carotid pulses, normal radial pulses Vascular exam: PRESENT: normal capillary refill GI/Abdominal exam: PRESENT: normal bowel sounds, soft. ABSENT: distended, guarding, mass, organolmegaly, rebound, tenderness Rectal exam: PRESENT: deferred Extremities exam: PRESENT: full ROM. ABSENT: calf tenderness, clubbing, pedal edema Musculoskeletal exam: PRESENT: full ROM Neurological exam: PRESENT: alert, altered, oriented to person, CN II-XII grossly intact Psychiatric exam: PRESENT: agitated, anxious Focused psych exam: PRESENT: restlessness Skin exam: PRESENT: abrasion, dry, skin tears, warm Results Impressions: Head CT 10/12/16 19:01 IMPRESSION: MILD CHRONIC CHANGES OF ATROPHY AND MICROVASCULAR ISCHEMIA. NO ACUTE PROCESS. Assessment & Plan - Diagnosis (1) Visual hallucinations Is this a current diagnosis for this admission?: YesPlan: Patient has changes on CT consistent with vascular dementia. Granddaughter admits to noticing recent night time confusion that has bee worsening. Dehydration, hyponatremia and heavy alcohol intake most likely compounded the problem. Discharge planning consulted for SNF placement at least short term (2) Hyponatremia Is this a current diagnosis for this admission?: YesPlan: Corrected with rehydration with normal saline solution.Most likely secondary to poor oral intake, dehydration and alcohol abuse (3) Alcohol consumption binge drinking Is this a current diagnosis for this admission?: YesPlan: Alcohol withdrawal orders in place (4) Alcohol withdrawal Qualifiers: Complication of substance-induced condition: with perceptual disturbance Qualified Code(s): F10.232 - Alcohol dependence with withdrawal with perceptual disturbance Is this a current diagnosis for this admission?: YesPlan: Ativan prn (5) Bruising Is this a current diagnosis for this admission?: Yes (6) Elevated LFTs Is this a current diagnosis for this admission?: YesPlan: Secondary to etoh use (7) Diabetes mellitus type 1 Qualifiers: Diabetes mellitus complication status: without complication Qualified Code(s): E10.9 - Type 1 diabetes mellitus without complications Is this a current diagnosis for this admission?: YesPlan: Patient will continue insulin and sliding scale coverage (8) Tobacco dependency Is this a current diagnosis for this admission?: YesPlan: Nicotine prn - Time Time Spent with patient: 25-34 minutes Critical Time spent with patient: 15-24 minutes Medications reviewed and adjusted accordingly: Yes Anticipated discharge: SNF, Acute Rehab Within: when bed available
[2016-10-15 13:38] LABS: APPEARANCE,URINE CLEAR; BILIRUBIN,URINE NEGATIVE (NEGATIVE); GLUCOSE, URINE NEGATIVE (NEGATIVE); KETONES,URINE NEGATIVE (NEGATIVE); LEUKOCYTE ESTERASE,URINE NEGATIVE (NEGATIVE); NITRITE,URINE NEGATIVE (NEGATIVE); PROTEIN,URINE NEGATIVE (NEGATIVE); URINE SPECIFIC GRAVITY 1.011; UROBILINOGEN,URINE NEGATIVE mg/dL (<2.0)
[2016-10-15] MEDS: TAMSULOSIN HCL 0.4 MG CAP.SR.24H PO SCH (19:40)
[2016-10-15] MEDS: RISPERIDONE 1 MG TABLET PO SCH (20:39)
[2016-10-15] MEDS: ATORVASTATIN CALCIUM 20 MG TABLET PO SCH (20:39)
[2016-10-15] MEDS: LATANOPROST 0.005% OPH SOLN 2.5 ML OD SCH (21:21)
[2016-10-15] MEDS: INSULIN GLARGINE,HUM.REC.ANLOG 300 UNIT/3 ML INSULN.PEN SUBCUT SCH (21:22)
[2016-10-16] MEDS: LORAZEPAM INJ 2 MG/1 ML VIAL (TAPER DOSING) IV SCH ×4 (00:37→21:16)
[2016-10-16] MEDS: LORAZEPAM INJ 2 MG/1 ML VIAL IV PRN ×3 (02:45→22:26)
--- NOTE | 2016-10-16 08:22 | PDOC PROGRESS REPORT ---
Subjective Progress Note for:: 10/16/16 Subjective:: Patient had urinary retention yesterday requiring Casas catheter insertion. Has been agitated by after catheter inserted patient seems to calm down. She was placed on Risperdal as well as Ativan scheduled and as needed for his withdrawal. He is on scheduled Klonopin as well. No reported respiratory distress or temperature spikes. Patient currently sedated. Physical Exam Vital Signs: Temp Pulse Resp BP Pulse Ox 97.7 F 71 20 142/67 H 99 10/16/16 03:05 10/16/16 03:05 10/16/16 03:05 10/16/16 03:05 10/16/16 03:05 Intake & Output 10/15/16 10/16/16 10/17/16 06:59 06:59 06:59 Intake Total 1800 Output Total 1450 Balance 350 Weight 68.4 kg General appearance: PRESENT: no acute distress, other - Patient comfortable sedated, Eye exam: PRESENT: conjunctiva pink Mouth exam: PRESENT: moist, neck supple Neck exam: ABSENT: JVD Respiratory exam: PRESENT: clear to auscultation ashley. ABSENT: rhonchi, wheezes Cardiovascular exam: PRESENT: RRR. ABSENT: gallop GI/Abdominal exam: PRESENT: hypoactive bowel sounds, soft. ABSENT: distended, tenderness Extremities exam: ABSENT: pedal edema Neurological exam: PRESENT: altered Psychiatric exam: ABSENT: agitated Focused psych exam: ABSENT: restlessness Skin exam: PRESENT: dry, warm. ABSENT: cyanosis Results Laboratory Results: 10/15/16 13:15 Urine Color YELLOW Urine Appearance CLEAR Urine pH 5.0 Ur Specific [place] 1.011 Urine Protein NEGATIVE Urine Glucose (UA) NEGATIVE Urine Ketones NEGATIVE Urine Blood SMALL H Urine Nitrite NEGATIVE Ur Leukocyte Esterase NEGATIVE Urine WBC (Auto) 0 Urine RBC (Auto) 2 Impressions: Head CT 10/12/16 19:01 IMPRESSION: MILD CHRONIC CHANGES OF ATROPHY AND MICROVASCULAR ISCHEMIA. NO ACUTE PROCESS. 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 - Alcohol dependence with withdrawal with perceptual disturbance Is this a current diagnosis for this admission?: Yes (2) Hyponatremia Is this a current diagnosis for this admission?: Yes (3) Vascular dementia Qualifiers: Dementia behavioral disturbance: without behavioral disturbance Qualified Code(s): F01.50 - Vascular dementia without behavioral disturbance Is this a current diagnosis for this admission?: Yes (4) Hypertension Qualifiers: Hypertension type: essential hypertension Qualified Code(s): I10 - Essential (primary) hypertension Is this a current diagnosis for this admission?: Yes (5) Hyperlipidemia Qualifiers: Hyperlipidemia type: unspecified Qualified Code(s): E78.5 - Hyperlipidemia, unspecified Is this a current diagnosis for this admission?: Yes (6) Diabetes mellitus type 1 Qualifiers: Diabetes mellitus complication status: without complication Qualified Code(s): E10.9 - Type 1 diabetes mellitus without complications Is this a current diagnosis for this admission?: Yes - Time Time Spent with patient: 25-34 minutes - Plan Summary Plan Summary: Continue IV hydration and supplements, we will decrease Ativan and hold his home medication Klonopin. Continue supportive care and monitoring electrolytes. We will begin therapy when patient is more awake and alert and cooperative.
[2016-10-16] MEDS: TIMOLOL MALEATE 0.25% OPH SOLN 5 ML OD SCH (08:52)
[2016-10-16] MEDS: LANSOPRAZOLE 30 MG TAB.RAP.DR PO SCH (08:53)
[2016-10-16] MEDS: ENOXAPARIN SODIUM INJ 40 MG/0.4 ML DISP.SYRIN SUBCUT SCH (09:10)
[2016-10-16] MEDS: FOLIC ACID 1 MG TABLET PO SCH (09:12)
[2016-10-16] MEDS: NICOTINE 21 MG/24 HR PATCH.TD24 TD SCH (09:12)
[2016-10-16] MEDS: MULTIVITAMIN TABLET PO SCH (09:12)
[2016-10-16] MEDS: ESCITALOPRAM OXALATE 10 MG TABLET PO SCH (09:12)
[2016-10-16] MEDS: THIAMINE HCL 100 MG TABLET PO SCH (09:12)
[2016-10-16] MEDS: TAMSULOSIN HCL 0.4 MG CAP.SR.24H PO SCH (17:13)
[2016-10-16] MEDS: NYSTATIN TOPICAL POWDER 15 GM TP SCH (21:15)
[2016-10-16] MEDS: RISPERIDONE 1 MG TABLET PO SCH (21:21)
[2016-10-16] MEDS: ATORVASTATIN CALCIUM 20 MG TABLET PO SCH (21:21)
[2016-10-16] MEDS: LATANOPROST 0.005% OPH SOLN 2.5 ML OD SCH (21:22)
[2016-10-16] MEDS: NORMAL SALINE 1000 ML 1,000 ML IV PRN (21:23)
[2016-10-16] MEDS: INSULIN GLARGINE,HUM.REC.ANLOG 300 UNIT/3 ML INSULN.PEN SUBCUT SCH (21:24)
[2016-10-16] MEDS: BACITRACIN OPH OINT 3.5 GM OU SCH (23:17)
[2016-10-16] MEDS: ACETAMINOPHEN 325 MG TABLET PO PRN (23:26)
[2016-10-17] MEDS: LORAZEPAM INJ 2 MG/1 ML VIAL IV PRN ×5 (03:03→23:07)
[2016-10-17] MEDS: BACITRACIN OPH OINT 3.5 GM OU SCH ×4 (05:02→23:07)
[2016-10-17 06:09] LABS: ANION GAP 8 (5-19); BLOOD UREA NITROGEN 8 mg/dL (7-20); CALCIUM 8.9 mg/dL (8.4-10.2); CARBON DIOXIDE 25 mmol/L (22-30); CHLORIDE 105 mmol/L (98-107); CREATININE RESULT 0.56 mg/dL (0.52-1.25); GLUCOSE 142 mg/dL (75-110); MAGNESIUM 1.7 mg/dL (1.6-2.3); PHOSPHORUS 2.5 mg/dL (2.5-4.5); POTASSIUM 3.6 mmol/L (3.6-5.0); SODIUM 138.3 mmol/L (137-145)
[2016-10-17] MEDS: LANSOPRAZOLE 30 MG TAB.RAP.DR PO SCH (08:12)
[2016-10-17] MEDS: TIMOLOL MALEATE 0.25% OPH SOLN 5 ML OD SCH (08:12)
[2016-10-17] MEDS: NORMAL SALINE 1000 ML 1,000 ML IV PRN (11:07)
--- NOTE | 2016-10-17 11:07 | PDOC PROGRESS REPORT ---
Subjective Progress Note for:: 10/17/16 Subjective:: Patient is only slightly confused today. Physical Exam Vital Signs: Temp Pulse Resp BP Pulse Ox 97.3 F 85 20 130/71 H 97 10/17/16 07:44 10/17/16 07:44 10/17/16 07:44 10/17/16 07:44 10/17/16 07:44 Intake & Output 10/16/16 10/17/16 10/18/16 06:59 06:59 06:59 Intake Total 1800 2240 Output Total 1450 1850 Balance 350 390 Weight 68.4 kg 68.4 kg General appearance: PRESENT: no acute distress Eye exam: PRESENT: conjunctiva pink. ABSENT: scleral icterus Mouth exam: PRESENT: moist, tongue midline Neck exam: ABSENT: JVD Respiratory exam: PRESENT: clear to auscultation ashley. ABSENT: rales, rhonchi, wheezes Cardiovascular exam: PRESENT: RRR. ABSENT: diastolic murmur, rubs, systolic murmur GI/Abdominal exam: PRESENT: normal bowel sounds, soft. ABSENT: distended, guarding, mass, organolmegaly, rebound, tenderness Extremities exam: PRESENT: full ROM. ABSENT: calf tenderness, clubbing, pedal edema Neurological exam: PRESENT: alert, awake, oriented to person, oriented to place. ABSENT: oriented to time Psychiatric exam: PRESENT: appropriate affect Skin exam: PRESENT: other - Several areas of ecchymosis Results Laboratory Results: 10/17/16 05:19 10/17/16 05:19 Sodium 138.3 Potassium 3.6 Chloride 105 Carbon Dioxide 25 Anion Gap 8 BUN 8 Creatinine 0.56 Est GFR ( Amer) > 60 Est GFR (Non-Af Amer) > 60 Glucose 142 H Calcium 8.9 Phosphorus 2.5 Magnesium 1.7 Impressions: Head CT 10/12/16 19:01 IMPRESSION: MILD CHRONIC CHANGES OF ATROPHY AND MICROVASCULAR ISCHEMIA. NO ACUTE PROCESS. 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 - Alcohol dependence with withdrawal with perceptual disturbance Is this a current diagnosis for this admission?: YesPlan: His mental status is slowly improving. Will continue with benzodiazepines as needed (2) Elevated LFTs Is this a current diagnosis for this admission?: YesPlan: Secondary to alcohol use. They have improved. (3) Hyperlipidemia Qualifiers: Hyperlipidemia type: unspecified Qualified Code(s): E78.5 - Hyperlipidemia, unspecified Is this a current diagnosis for this admission?: YesPlan: Continue with Lipitor. (4) Hypertension Qualifiers: Hypertension type: essential hypertension Qualified Code(s): I10 - Essential (primary) hypertension Is this a current diagnosis for this admission?: YesPlan: Controlled without medications at this time. (5) Hyponatremia Is this a current diagnosis for this admission?: YesPlan: Resolved (6) Vascular dementia Qualifiers: Dementia behavioral disturbance: without behavioral disturbance Qualified Code(s): F01.50 - Vascular dementia without behavioral disturbance Is this a current diagnosis for this admission?: YesPlan: Continue with Risperdal (7) Diabetes mellitus type 1 Qualifiers: Diabetes mellitus complication status: without complication Qualified Code(s): E10.9 - Type 1 diabetes mellitus without complications Is this a current diagnosis for this admission?: YesPlan: Continue with sliding scale insulin. - Inpatient Certification Medical Necessity: Need Close Monitoring Due to Risk of Patient Decompensation
[2016-10-17] MEDS: FOLIC ACID 1 MG TABLET PO SCH (11:09)
[2016-10-17] MEDS: THIAMINE HCL 100 MG TABLET PO SCH (11:09)
[2016-10-17] MEDS: ESCITALOPRAM OXALATE 10 MG TABLET PO SCH (11:09)
[2016-10-17] MEDS: MULTIVITAMIN TABLET PO SCH (11:10)
[2016-10-17] MEDS: NYSTATIN TOPICAL POWDER 15 GM TP SCH ×2 (11:11→21:19)
[2016-10-17] MEDS: NICOTINE 21 MG/24 HR PATCH.TD24 TD SCH (11:11)
[2016-10-17] MEDS: ENOXAPARIN SODIUM INJ 40 MG/0.4 ML DISP.SYRIN SUBCUT SCH (11:15)
[2016-10-17] MEDS: ACETAMINOPHEN 325 MG TABLET PO PRN ×2 (13:16→21:16)
[2016-10-17] MEDS: TAMSULOSIN HCL 0.4 MG CAP.SR.24H PO SCH (17:29)
[2016-10-17] MEDS: RISPERIDONE 1 MG TABLET PO SCH (21:16)
[2016-10-17] MEDS: PROMETHAZINE HCL 25 MG TABLET PO PRN (21:16)
[2016-10-17] MEDS: ATORVASTATIN CALCIUM 20 MG TABLET PO SCH (21:19)
[2016-10-17] MEDS: INSULIN GLARGINE,HUM.REC.ANLOG 300 UNIT/3 ML INSULN.PEN SUBCUT SCH (21:21)
[2016-10-17] MEDS: LATANOPROST 0.005% OPH SOLN 2.5 ML OD SCH (21:30)
[2016-10-18] MEDS: LORAZEPAM INJ 2 MG/1 ML VIAL IV PRN ×2 (04:18→08:47)
[2016-10-18] MEDS: BACITRACIN OPH OINT 3.5 GM OU SCH ×4 (05:25→23:01)
[2016-10-18 07:48] LABS: ABSOLUTE BASOPHILS # (AUTO) 0.1 10^3/uL (0.0-0.2); ABSOLUTE EOSINOPHILS # (AUTO) 0.1 10^3/uL (0.0-0.6); ABSOLUTE LYMPHOCYTES (AUTO) 1.5 10^3/uL (0.5-4.7); ABSOLUTE MONOCYTES (AUTO) 0.7 10^3/uL (0.1-1.4); ABSOLUTE NEUT (AUTO) 4.5 10^3/uL (1.7-8.2); BASOPHILS % (AUTO) 0.9 % (0-2); EOSINOPHILS % (AUTO) 0.9 % (0-6); HEMATOCRIT 39.2 % (37.9-51.0); HEMOGLOBIN 13.7 g/dL (13.5-17.0); HGB HCT DIFFERENCE 1.9; LYMPHOCYTES % (AUTO) 21.3 % (13-45); MEAN CORPUSCULAR HEMOGLOBIN 32.8 pg (27.0-33.4); MEAN CORPUSCULAR HGB CONC 34.9 g/dL (32.0-36.0); MEAN CORPUSCULAR VOLUME 94 fl (80-97); MONOCYTES % (AUTO) 10.6 % (3-13); RED BLOOD COUNT 4.18 10^6/uL (4.35-5.55); RED CELL DISTRIBUTION WIDTH 14.5 % (11.5-14.0); SEGMENTED NEUTROPHILS % (AUTO) 66.3 % (42-78); WHITE BLOOD COUNT 6.8 10^3/uL (4.0-10.5)
[2016-10-18 07:55] LABS: ALANINE AMINOTRANSFERASE 43 U/L (21-72); ALBUMIN 3.7 g/dL (3.5-5.0); ALKALINE PHOSPHATASE 76 U/L (38-126); ANION GAP 9 (5-19); ASPARTATE AMINO TRANSFERASE 63 U/L (17-59); BILIRUBIN,DIRECT 0.5 mg/dL (0.0-0.4); BILIRUBIN,TOTAL 0.8 mg/dL (0.2-1.3); BLOOD UREA NITROGEN 6 mg/dL (7-20); CALCIUM 9.4 mg/dL (8.4-10.2); CARBON DIOXIDE 26 mmol/L (22-30); CHLORIDE 109 mmol/L (98-107); CREATININE RESULT 0.62 mg/dL (0.52-1.25); POTASSIUM 3.3 mmol/L (3.6-5.0); SODIUM 144.1 mmol/L (137-145)
[2016-10-18] MEDS: LANSOPRAZOLE 30 MG TAB.RAP.DR PO SCH (08:47)
[2016-10-18] MEDS: TIMOLOL MALEATE 0.25% OPH SOLN 5 ML OD SCH (08:48)
[2016-10-18 10:00] LABS: GLUCOSE 39 mg/dL (75-110)
[2016-10-18] MEDS: THIAMINE HCL 100 MG TABLET PO SCH (11:27)
[2016-10-18] MEDS: NYSTATIN TOPICAL POWDER 15 GM TP SCH ×2 (11:27→21:17)
[2016-10-18] MEDS: ENOXAPARIN SODIUM INJ 40 MG/0.4 ML DISP.SYRIN SUBCUT SCH (11:27)
[2016-10-18] MEDS: MULTIVITAMIN TABLET PO SCH (11:27)
[2016-10-18] MEDS: FOLIC ACID 1 MG TABLET PO SCH (11:27)
[2016-10-18] MEDS: NICOTINE 21 MG/24 HR PATCH.TD24 TD SCH (11:27)
[2016-10-18] MEDS: ESCITALOPRAM OXALATE 10 MG TABLET PO SCH (11:27)
--- NOTE | 2016-10-18 13:28 | PDOC PROGRESS REPORT ---
Subjective Progress Note for:: 10/18/16 Subjective:: Patient is only slightly confused today. Physical Exam Vital Signs: Temp Pulse Resp BP Pulse Ox 97.7 F 69 17 114/63 98 10/18/16 11:30 10/18/16 11:30 10/18/16 11:30 10/18/16 11:30 10/18/16 11:30 Intake & Output 10/17/16 10/18/16 10/19/16 06:59 06:59 06:59 Intake Total 2240 1290 Output Total 1850 2975 Balance 390 -1685 Weight 68.4 kg General appearance: PRESENT: no acute distress Eye exam: PRESENT: conjunctiva pink. ABSENT: scleral icterus Mouth exam: PRESENT: moist, tongue midline Neck exam: ABSENT: JVD Respiratory exam: PRESENT: clear to auscultation ashley. ABSENT: rales, rhonchi, wheezes Cardiovascular exam: PRESENT: RRR. ABSENT: diastolic murmur, rubs, systolic murmur GI/Abdominal exam: PRESENT: normal bowel sounds, soft. ABSENT: distended, guarding, mass, organolmegaly, rebound, tenderness Rectal exam: PRESENT: deferred Extremities exam: ABSENT: calf tenderness, clubbing, pedal edema Neurological exam: PRESENT: awake, oriented to person, oriented to place. ABSENT: oriented to time, oriented to situation Psychiatric exam: PRESENT: flat affect Results Laboratory Results: 10/18/16 04:35 10/18/16 04:35 10/18/16 10/18/16 04:35 04:35 WBC 6.8 RBC 4.18 L Hgb 13.7 Hct 39.2 MCV 94 MCH 32.8 MCHC 34.9 RDW 14.5 H Plt Count 227 Seg Neutrophils % 66.3 Lymphocytes % 21.3 Monocytes % 10.6 Eosinophils % 0.9 Basophils % 0.9 Absolute Neutrophils 4.5 Absolute Lymphocytes 1.5 Absolute Monocytes 0.7 Absolute Eosinophils 0.1 Absolute Basophils 0.1 Sodium 144.1 Potassium 3.3 L Chloride 109 H Carbon Dioxide 26 Anion Gap 9 BUN 6 L Creatinine 0.62 Est GFR ( Amer) > 60 Est GFR (Non-Af Amer) > 60 Glucose 39 L* Calcium 9.4 Total Bilirubin 0.8 AST 63 H ALT 43 Alkaline Phosphatase 76 Total Protein 6.0 L Albumin 3.7 Impressions: Head CT 10/12/16 19:01 IMPRESSION: MILD CHRONIC CHANGES OF ATROPHY AND MICROVASCULAR ISCHEMIA. NO ACUTE PROCESS. 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 Will continue with benzodiazepines as needed (2) Elevated LFTs Is this a current diagnosis for this admission?: Yes Plan: Secondary to alcohol use. They have improved. (3) Hyperlipidemia Qualifiers: Hyperlipidemia type: unspecified Qualified Code(s): E78.5 - Hyperlipidemia , unspecified Is this a current diagnosis for this admission?: Yes Plan: Continue with Lipitor. (4) Hypertension Qualifiers: Hypertension type: essential hypertension Qualified Code(s): I10 - Essential (primary) hypertension Is this a current diagnosis for this admission?: Yes Plan: Controlled without medications at this time. (5) Hyponatremia Is this a current diagnosis for this admission?: Yes Plan: Resolved (6) Vascular dementia Qualifiers: Dementia behavioral disturbance: without behavioral disturbance Qualified Code(s): F01.50 - Vascular dementia without behavioral disturbance Is this a current diagnosis for this admission?: Yes Plan: Continue with Risperdal (7) Diabetes mellitus type 1 Qualifiers: Diabetes mellitus complication status: without complication Qualified Code( s): E10.9 - Type 1 diabetes mellitus without complications Is this a current diagnosis for this admission?: Yes Plan: Continue with sliding scale insulin. - Time Time Spent with patient: 25-34 minutes
[2016-10-18] MEDS: NORMAL SALINE 1000 ML 1,000 ML IV PRN (14:31)
[2016-10-18] MEDS: TAMSULOSIN HCL 0.4 MG CAP.SR.24H PO SCH (17:51)
[2016-10-18] MEDS: LORAZEPAM INJ 2 MG/1 ML VIAL (TAPER DOSING) IV SCH (20:19)
[2016-10-18] MEDS: RISPERIDONE 1 MG TABLET PO SCH (21:16)
[2016-10-18] MEDS: ATORVASTATIN CALCIUM 20 MG TABLET PO SCH (21:16)
[2016-10-18] MEDS: LATANOPROST 0.005% OPH SOLN 2.5 ML OD SCH (21:21)
[2016-10-18] MEDS: INSULIN GLARGINE,HUM.REC.ANLOG 300 UNIT/3 ML INSULN.PEN SUBCUT SCH (21:21)
[2016-10-19] MEDS: LORAZEPAM INJ 2 MG/1 ML VIAL IV PRN (00:42)
[2016-10-19] MEDS: BACITRACIN OPH OINT 3.5 GM OU SCH ×4 (05:45→23:16)
[2016-10-19 06:19] LABS: ABSOLUTE EOSINOPHILS # (AUTO) 0.1 10^3/uL (0.0-0.6); ABSOLUTE LYMPHOCYTES (AUTO) 1.7 10^3/uL (0.5-4.7); ABSOLUTE MONOCYTES (AUTO) 0.7 10^3/uL (0.1-1.4); ABSOLUTE NEUT (AUTO) 3.5 10^3/uL (1.7-8.2); BASOPHILS % (AUTO) 0.7 % (0-2); EOSINOPHILS % (AUTO) 2.3 % (0-6); HEMATOCRIT 39.8 % (37.9-51.0); HEMOGLOBIN 13.7 g/dL (13.5-17.0); HGB HCT DIFFERENCE 1.3; LYMPHOCYTES % (AUTO) 27.6 % (13-45); MEAN CORPUSCULAR HEMOGLOBIN 32.5 pg (27.0-33.4); MEAN CORPUSCULAR HGB CONC 34.4 g/dL (32.0-36.0); MEAN CORPUSCULAR VOLUME 94 fl (80-97); MONOCYTES % (AUTO) 11.6 % (3-13); RED BLOOD COUNT 4.21 10^6/uL (4.35-5.55); RED CELL DISTRIBUTION WIDTH 14.6 % (11.5-14.0); SEGMENTED NEUTROPHILS % (AUTO) 57.8 % (42-78); WHITE BLOOD COUNT 6.1 10^3/uL (4.0-10.5)
[2016-10-19 06:37] LABS: ANION GAP 10 (5-19); BLOOD UREA NITROGEN 8 mg/dL (7-20); CALCIUM 8.8 mg/dL (8.4-10.2); CARBON DIOXIDE 23 mmol/L (22-30); CHLORIDE 107 mmol/L (98-107); CREATININE RESULT 0.64 mg/dL (0.52-1.25); GLUCOSE 83 mg/dL (75-110); POTASSIUM 3.1 mmol/L (3.6-5.0); SODIUM 140.3 mmol/L (137-145)
[2016-10-19] MEDS: LANSOPRAZOLE 30 MG TAB.RAP.DR PO SCH (11:12)
[2016-10-19] MEDS: ENOXAPARIN SODIUM INJ 40 MG/0.4 ML DISP.SYRIN SUBCUT SCH (11:13)
[2016-10-19] MEDS: MULTIVITAMIN TABLET PO SCH (11:15)
[2016-10-19] MEDS: ESCITALOPRAM OXALATE 10 MG TABLET PO SCH (11:16)
[2016-10-19] MEDS: FOLIC ACID 1 MG TABLET PO SCH (11:17)
[2016-10-19] MEDS: POTASSIUM CHLORIDE 10 MEQ TABLET.SA PO SCH ×2 (11:21→21:28)
[2016-10-19] MEDS: NICOTINE 21 MG/24 HR PATCH.TD24 TD PRN (11:21)
[2016-10-19] MEDS: THIAMINE HCL 100 MG TABLET PO SCH (11:21)
--- NOTE | 2016-10-19 11:25 | PDOC PROGRESS REPORT ---
Subjective Progress Note for:: 10/19/16 Subjective:: Patient is more confused today. Physical Exam Vital Signs: Temp Pulse Resp BP Pulse Ox 97.7 F 84 18 132/65 H 97 10/19/16 07:48 10/19/16 07:48 10/19/16 07:48 10/19/16 07:48 10/19/16 07:48 Intake & Output 10/18/16 10/19/16 10/20/16 06:59 06:59 06:59 Intake Total 1290 1320 Output Total 2975 1325 Balance -1685 -5 Weight 65.8 kg General appearance: PRESENT: no acute distress Eye exam: PRESENT: conjunctiva pink. ABSENT: scleral icterus Mouth exam: PRESENT: moist, tongue midline Neck exam: ABSENT: JVD Respiratory exam: PRESENT: clear to auscultation ashley. ABSENT: rales, rhonchi, wheezes Cardiovascular exam: PRESENT: RRR. ABSENT: diastolic murmur, rubs, systolic murmur GI/Abdominal exam: PRESENT: normal bowel sounds, soft. ABSENT: distended, guarding, mass, organolmegaly, rebound, tenderness Extremities exam: ABSENT: calf tenderness, clubbing, pedal edema Neurological exam: PRESENT: alert, awake, oriented to person, CN II-XII grossly intact. ABSENT: oriented to place, oriented to time, oriented to situation, motor sensory deficit Psychiatric exam: PRESENT: appropriate affect Skin exam: PRESENT: dry, intact, warm. ABSENT: cyanosis, rash Results Laboratory Results: 10/19/16 05:44 10/19/16 05:44 10/19/16 10/19/16 05:44 05:44 WBC 6.1 RBC 4.21 L Hgb 13.7 Hct 39.8 MCV 94 MCH 32.5 MCHC 34.4 RDW 14.6 H Plt Count 205 Seg Neutrophils % 57.8 Lymphocytes % 27.6 Monocytes % 11.6 Eosinophils % 2.3 Basophils % 0.7 Absolute Neutrophils 3.5 Absolute Lymphocytes 1.7 Absolute Monocytes 0.7 Absolute Eosinophils 0.1 Absolute Basophils 0.0 Sodium 140.3 Potassium 3.1 L Chloride 107 Carbon Dioxide 23 Anion Gap 10 BUN 8 Creatinine 0.64 Est GFR ( Amer) > 60 Est GFR (Non-Af Amer) > 60 Glucose 83 Calcium 8.8 Impressions: Head CT 10/12/16 19:01 IMPRESSION: MILD CHRONIC CHANGES OF ATROPHY AND MICROVASCULAR ISCHEMIA. NO ACUTE PROCESS. 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 Will continue with benzodiazepines as needed (2) Elevated LFTs Is this a current diagnosis for this admission?: Yes Plan: Secondary to alcohol use. They have improved. (3) Hyperlipidemia Qualifiers: Hyperlipidemia type: unspecified Qualified Code(s): E78.5 - Hyperlipidemia , unspecified Is this a current diagnosis for this admission?: Yes Plan: Continue with Lipitor. (4) Hypertension Qualifiers: Hypertension type: essential hypertension Qualified Code(s): I10 - Essential (primary) hypertension Is this a current diagnosis for this admission?: Yes Plan: Controlled without medications at this time. (5) Hyponatremia Is this a current diagnosis for this admission?: Yes Plan: Resolved (6) Vascular dementia Qualifiers: Dementia behavioral disturbance: without behavioral disturbance Qualified Code(s): F01.50 - Vascular dementia without behavioral disturbance Is this a current diagnosis for this admission?: Yes Plan: Continue with Risperdal (7) Diabetes mellitus type 1 Qualifiers: Diabetes mellitus complication status: without complication Qualified Code( s): E10.9 - Type 1 diabetes mellitus without complications Is this a current diagnosis for this admission?: Yes Plan: Continue with sliding scale insulin. - Time Time Spent with patient: 25-34 minutes - Inpatient Certification Medical Necessity: Need Close Monitoring Due to Risk of Patient Decompensation
[2016-10-19] MEDS ORDERED: MAGNESIUM HYDROXIDE SUSP 30 ML UDCUP PO PRN (11:30)
[2016-10-19] MEDS ORDERED: MAG HYDROX/AL HYDROX/SIMETH SUSP 30 ML UDCUP PO PRN (11:30)
[2016-10-19] MEDS: POTASSI CL 20 MEQ/50 ML RIDER 20 MEQ/50 ML RTUPB IV SCH ×2 (11:44→13:33)
[2016-10-19] MEDS: TIMOLOL MALEATE 0.25% OPH SOLN 5 ML OD SCH (12:25)
[2016-10-19] MEDS: NYSTATIN TOPICAL POWDER 15 GM TP SCH ×2 (12:26→21:30)
[2016-10-19] MEDS: NICOTINE 21 MG/24 HR PATCH.TD24 TD SCH (12:27)
[2016-10-19] MEDS: NORMAL SALINE 1000 ML 1,000 ML IV PRN ×2 (13:55→17:52)
[2016-10-19] MEDS: TAMSULOSIN HCL 0.4 MG CAP.SR.24H PO SCH (17:55)
[2016-10-19] MEDS: RISPERIDONE 1 MG TABLET PO SCH (21:27)
[2016-10-19] MEDS: ATORVASTATIN CALCIUM 20 MG TABLET PO SCH (21:28)
[2016-10-19] MEDS: INSULIN GLARGINE,HUM.REC.ANLOG 300 UNIT/3 ML INSULN.PEN SUBCUT SCH (21:30)
[2016-10-19] MEDS: LATANOPROST 0.005% OPH SOLN 2.5 ML OD SCH (22:24)
[2016-10-20] MEDS: LORAZEPAM INJ 2 MG/1 ML VIAL IV PRN (03:25)
[2016-10-20 04:57] LABS: ABSOLUTE EOSINOPHILS # (AUTO) 0.1 10^3/uL (0.0-0.6); ABSOLUTE LYMPHOCYTES (AUTO) 1.3 10^3/uL (0.5-4.7); ABSOLUTE MONOCYTES (AUTO) 0.6 10^3/uL (0.1-1.4); ABSOLUTE NEUT (AUTO) 3.7 10^3/uL (1.7-8.2); BASOPHILS % (AUTO) 0.6 % (0-2); EOSINOPHILS % (AUTO) 1.4 % (0-6); HEMATOCRIT 38.4 % (37.9-51.0); HEMOGLOBIN 13.1 g/dL (13.5-17.0); HGB HCT DIFFERENCE 0.9; LYMPHOCYTES % (AUTO) 23.1 % (13-45); MEAN CORPUSCULAR HEMOGLOBIN 32.5 pg (27.0-33.4); MEAN CORPUSCULAR HGB CONC 34.2 g/dL (32.0-36.0); MEAN CORPUSCULAR VOLUME 95 fl (80-97); MONOCYTES % (AUTO) 11.1 % (3-13); RED BLOOD COUNT 4.04 10^6/uL (4.35-5.55); RED CELL DISTRIBUTION WIDTH 14.8 % (11.5-14.0); SEGMENTED NEUTROPHILS % (AUTO) 63.8 % (42-78); WHITE BLOOD COUNT 5.8 10^3/uL (4.0-10.5)
[2016-10-20 05:12] LABS: ANION GAP 6 (5-19); BLOOD UREA NITROGEN 10 mg/dL (7-20); CALCIUM 8.8 mg/dL (8.4-10.2); CARBON DIOXIDE 26 mmol/L (22-30); CHLORIDE 107 mmol/L (98-107); CREATININE RESULT 0.73 mg/dL (0.52-1.25); GLUCOSE 213 mg/dL (75-110); SODIUM 139.4 mmol/L (137-145)
[2016-10-20] MEDS: BACITRACIN OPH OINT 3.5 GM OU SCH ×4 (05:24→23:54)
[2016-10-20 05:29] LABS: POTASSIUM 4.1 mmol/L (3.6-5.0)
[2016-10-20] MEDS: LANSOPRAZOLE 30 MG TAB.RAP.DR PO SCH (08:19)
[2016-10-20] MEDS: TIMOLOL MALEATE 0.25% OPH SOLN 5 ML OD SCH (08:20)
[2016-10-20] MEDS: NORMAL SALINE 1000 ML 1,000 ML IV PRN ×2 (08:28→22:14)
--- NOTE | 2016-10-20 09:48 | PDOC PROGRESS REPORT ---
Subjective Progress Note for:: 10/20/16 Subjective:: Patient is less confused today. Physical Exam Vital Signs: Temp Pulse Resp BP Pulse Ox 97.9 F 80 15 132/99 H 96 10/20/16 07:26 10/20/16 07:26 10/20/16 07:26 10/20/16 07:26 10/20/16 07:26 Intake & Output 10/19/16 10/20/16 10/21/16 06:59 06:59 06:59 Intake Total 1320 1800 Output Total 1325 1675 Balance -5 125 Weight 65.8 kg 71.5 kg General appearance: PRESENT: no acute distress Eye exam: PRESENT: conjunctiva pink. ABSENT: scleral icterus Mouth exam: PRESENT: moist, tongue midline Neck exam: ABSENT: JVD Respiratory exam: PRESENT: clear to auscultation ashley. ABSENT: rales, rhonchi, wheezes Cardiovascular exam: PRESENT: RRR. ABSENT: diastolic murmur, rubs, systolic murmur GI/Abdominal exam: PRESENT: normal bowel sounds, soft. ABSENT: distended, guarding, mass, organolmegaly, rebound, tenderness Extremities exam: ABSENT: calf tenderness, clubbing, pedal edema Neurological exam: PRESENT: alert, awake, oriented to person, oriented to place , CN II-XII grossly intact. ABSENT: oriented to time, oriented to situation, motor sensory deficit Results Laboratory Results: 10/20/16 04:17 10/20/16 04:17 10/20/16 10/20/16 04:17 04:17 WBC 5.8 RBC 4.04 L Hgb 13.1 L Hct 38.4 MCV 95 MCH 32.5 MCHC 34.2 RDW 14.8 H Plt Count 195 Seg Neutrophils % 63.8 Lymphocytes % 23.1 Monocytes % 11.1 Eosinophils % 1.4 Basophils % 0.6 Absolute Neutrophils 3.7 Absolute Lymphocytes 1.3 Absolute Monocytes 0.6 Absolute Eosinophils 0.1 Absolute Basophils 0.0 Sodium 139.4 Potassium 4.1 D Chloride 107 Carbon Dioxide 26 Anion Gap 6 BUN 10 Creatinine 0.73 Est GFR ( Amer) > 60 Est GFR (Non-Af Amer) > 60 Glucose 213 H Calcium 8.8 Impressions: Head CT 10/12/16 19:01 IMPRESSION: MILD CHRONIC CHANGES OF ATROPHY AND MICROVASCULAR ISCHEMIA. NO ACUTE PROCESS. 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 Will continue with benzodiazepines as needed (2) Elevated LFTs Is this a current diagnosis for this admission?: Yes Plan: Secondary to alcohol use. They have improved. (3) Hyperlipidemia Qualifiers: Hyperlipidemia type: unspecified Qualified Code(s): E78.5 - Hyperlipidemia , unspecified Is this a current diagnosis for this admission?: Yes Plan: Continue with Lipitor. (4) Hypertension Qualifiers: Hypertension type: essential hypertension Qualified Code(s): I10 - Essential (primary) hypertension Is this a current diagnosis for this admission?: Yes Plan: Controlled without medications at this time. (5) Hyponatremia Is this a current diagnosis for this admission?: Yes Plan: Resolved (6) Vascular dementia Qualifiers: Dementia behavioral disturbance: without behavioral disturbance Qualified Code(s): F01.50 - Vascular dementia without behavioral disturbance Is this a current diagnosis for this admission?: Yes Plan: Continue with Risperdal (7) Diabetes mellitus type 1 Qualifiers: Diabetes mellitus complication status: without complication Qualified Code( s): E10.9 - Type 1 diabetes mellitus without complications Is this a current diagnosis for this admission?: Yes Plan: Continue with sliding scale insulin. - Time Time Spent with patient: 25-34 minutes - Inpatient Certification Medical Necessity: Need Close Monitoring Due to Risk of Patient Decompensation - Plan Summary Plan Summary: We will plan on transfer to half-way facility on Sunday.
[2016-10-20] MEDS: POTASSIUM CHLORIDE 10 MEQ TABLET.SA PO SCH ×2 (11:23→22:14)
[2016-10-20] MEDS: MULTIVITAMIN TABLET PO SCH (11:24)
[2016-10-20] MEDS: ESCITALOPRAM OXALATE 10 MG TABLET PO SCH (11:24)
[2016-10-20] MEDS: THIAMINE HCL 100 MG TABLET PO SCH (11:24)
[2016-10-20] MEDS: FOLIC ACID 1 MG TABLET PO SCH (11:24)
[2016-10-20] MEDS: ENOXAPARIN SODIUM INJ 40 MG/0.4 ML DISP.SYRIN SUBCUT SCH (11:27)
[2016-10-20] MEDS: NYSTATIN TOPICAL POWDER 15 GM TP SCH ×2 (11:28→22:14)
[2016-10-20] MEDS: NICOTINE 21 MG/24 HR PATCH.TD24 TD SCH (11:31)
[2016-10-20] MEDS: TAMSULOSIN HCL 0.4 MG CAP.SR.24H PO SCH (17:40)
[2016-10-20] MEDS: LATANOPROST 0.005% OPH SOLN 2.5 ML OD SCH (22:14)
[2016-10-20] MEDS: ATORVASTATIN CALCIUM 20 MG TABLET PO SCH (22:14)
[2016-10-20] MEDS: RISPERIDONE 1 MG TABLET PO SCH (22:15)
[2016-10-20] MEDS: INSULIN GLARGINE,HUM.REC.ANLOG 300 UNIT/3 ML INSULN.PEN SUBCUT SCH (22:15)
[2016-10-21] MEDS: BACITRACIN OPH OINT 3.5 GM OU SCH ×4 (06:07→23:07)
[2016-10-21] MEDS: TIMOLOL MALEATE 0.25% OPH SOLN 5 ML OD SCH (08:07)
[2016-10-21] MEDS: LANSOPRAZOLE 30 MG TAB.RAP.DR PO SCH (08:07)
[2016-10-21] MEDS: ENOXAPARIN SODIUM INJ 40 MG/0.4 ML DISP.SYRIN SUBCUT SCH (09:26)
[2016-10-21] MEDS: NYSTATIN TOPICAL POWDER 15 GM TP SCH ×2 (09:27→21:06)
[2016-10-21] MEDS: NICOTINE 21 MG/24 HR PATCH.TD24 TD SCH (09:27)
[2016-10-21] MEDS: ACETAMINOPHEN 325 MG TABLET PO PRN ×2 (09:27→17:01)
[2016-10-21] MEDS: POTASSIUM CHLORIDE 10 MEQ TABLET.SA PO SCH ×2 (09:28→21:06)
[2016-10-21] MEDS: THIAMINE HCL 100 MG TABLET PO SCH (09:28)
[2016-10-21] MEDS: FOLIC ACID 1 MG TABLET PO SCH (09:28)
[2016-10-21] MEDS: ESCITALOPRAM OXALATE 10 MG TABLET PO SCH (09:28)
[2016-10-21] MEDS: MULTIVITAMIN TABLET PO SCH (09:28)
[2016-10-21] MEDS: NORMAL SALINE 1000 ML 1,000 ML IV PRN (11:50)
--- NOTE | 2016-10-21 12:28 | PDOC PROGRESS REPORT ---
Subjective Progress Note for:: 10/21/16 Subjective:: Patient is less confused today. Physical Exam Vital Signs: Temp Pulse Resp BP Pulse Ox 98.0 F 83 18 128/70 H 98 10/21/16 08:06 10/21/16 08:06 10/21/16 08:06 10/21/16 08:06 10/21/16 08:06 Intake & Output 10/20/16 10/21/16 10/22/16 06:59 06:59 06:59 Intake Total 1800 2902 Output Total 1675 4500 Balance 125 -1598 Weight 71.5 kg 73.9 kg General appearance: PRESENT: no acute distress Eye exam: PRESENT: conjunctiva pink. ABSENT: scleral icterus Mouth exam: PRESENT: moist, tongue midline Neck exam: ABSENT: JVD Respiratory exam: PRESENT: clear to auscultation ashley. ABSENT: rales, rhonchi, wheezes Cardiovascular exam: PRESENT: RRR. ABSENT: diastolic murmur, rubs, systolic murmur GI/Abdominal exam: PRESENT: normal bowel sounds, soft. ABSENT: distended, guarding, mass, organolmegaly, rebound, tenderness Extremities exam: ABSENT: calf tenderness, clubbing, pedal edema Neurological exam: PRESENT: alert, awake, oriented to person, oriented to place , CN II-XII grossly intact. ABSENT: motor sensory deficit Psychiatric exam: PRESENT: appropriate affect Skin exam: PRESENT: dry, intact, warm. ABSENT: cyanosis, rash Results Laboratory Results: 10/20/16 04:17 10/20/16 04:17 Impressions: Head CT 10/12/16 19:01 IMPRESSION: MILD CHRONIC CHANGES OF ATROPHY AND MICROVASCULAR ISCHEMIA. NO ACUTE PROCESS. 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 Will continue with benzodiazepines as needed (2) Elevated LFTs Is this a current diagnosis for this admission?: Yes Plan: Secondary to alcohol use. They have improved. (3) Hyperlipidemia Qualifiers: Hyperlipidemia type: unspecified Qualified Code(s): E78.5 - Hyperlipidemia , unspecified Is this a current diagnosis for this admission?: Yes Plan: Continue with Lipitor. (4) Hypertension Qualifiers: Hypertension type: essential hypertension Qualified Code(s): I10 - Essential (primary) hypertension Is this a current diagnosis for this admission?: Yes Plan: Controlled without medications at this time. (5) Hyponatremia Is this a current diagnosis for this admission?: Yes Plan: Resolved (6) Vascular dementia Qualifiers: Dementia behavioral disturbance: without behavioral disturbance Qualified Code(s): F01.50 - Vascular dementia without behavioral disturbance Is this a current diagnosis for this admission?: Yes Plan: Continue with Risperdal (7) Diabetes mellitus type 1 Qualifiers: Diabetes mellitus complication status: without complication Qualified Code( s): E10.9 - Type 1 diabetes mellitus without complications Is this a current diagnosis for this admission?: Yes Plan: Continue with sliding scale insulin. - Time Time Spent with patient: 25-34 minutes - Inpatient Certification Medical Necessity: Need Close Monitoring Due to Risk of Patient Decompensation
[2016-10-21] MEDS: INSULIN LISPRO 100 UNIT/ML 3 ML VIAL SUBCUT PRN (17:01)
[2016-10-21] MEDS: TAMSULOSIN HCL 0.4 MG CAP.SR.24H PO SCH (17:02)
[2016-10-21] MEDS: RISPERIDONE 1 MG TABLET PO SCH (21:06)
[2016-10-21] MEDS: ATORVASTATIN CALCIUM 20 MG TABLET PO SCH (21:06)
[2016-10-21] MEDS: INSULIN GLARGINE,HUM.REC.ANLOG 300 UNIT/3 ML INSULN.PEN SUBCUT SCH (21:06)
[2016-10-21] MEDS: LATANOPROST 0.005% OPH SOLN 2.5 ML OD SCH (21:12)
[2016-10-22] MEDS: NORMAL SALINE 1000 ML 1,000 ML IV PRN ×2 (00:38→13:47)
[2016-10-22] MEDS: BACITRACIN OPH OINT 3.5 GM OU SCH ×4 (05:33→23:17)
[2016-10-22 06:21] LABS: ABSOLUTE BASOPHILS # (AUTO) 0.1 10^3/uL (0.0-0.2); ABSOLUTE EOSINOPHILS # (AUTO) 0.1 10^3/uL (0.0-0.6); ABSOLUTE LYMPHOCYTES (AUTO) 1.6 10^3/uL (0.5-4.7); ABSOLUTE MONOCYTES (AUTO) 0.7 10^3/uL (0.1-1.4); ABSOLUTE NEUT (AUTO) 4.4 10^3/uL (1.7-8.2); EOSINOPHILS % (AUTO) 1.1 % (0-6); HEMATOCRIT 40.2 % (37.9-51.0); HEMOGLOBIN 13.8 g/dL (13.5-17.0); HGB HCT DIFFERENCE 1.2; LYMPHOCYTES % (AUTO) 23.3 % (13-45); MEAN CORPUSCULAR HEMOGLOBIN 32.4 pg (27.0-33.4); MEAN CORPUSCULAR HGB CONC 34.3 g/dL (32.0-36.0); MEAN CORPUSCULAR VOLUME 94 fl (80-97); MONOCYTES % (AUTO) 10.3 % (3-13); RED BLOOD COUNT 4.26 10^6/uL (4.35-5.55); RED CELL DISTRIBUTION WIDTH 15.1 % (11.5-14.0); SEGMENTED NEUTROPHILS % (AUTO) 64.3 % (42-78); WHITE BLOOD COUNT 6.9 10^3/uL (4.0-10.5)
[2016-10-22 06:28] LABS: ANION GAP 10 (5-19); BLOOD UREA NITROGEN 7 mg/dL (7-20); CALCIUM 9.5 mg/dL (8.4-10.2); CARBON DIOXIDE 24 mmol/L (22-30); CHLORIDE 107 mmol/L (98-107); CREATININE RESULT 0.63 mg/dL (0.52-1.25); GLUCOSE 82 mg/dL (75-110); POTASSIUM 3.7 mmol/L (3.6-5.0); SODIUM 141.1 mmol/L (137-145)
[2016-10-22] MEDS: ENOXAPARIN SODIUM INJ 40 MG/0.4 ML DISP.SYRIN SUBCUT SCH (09:11)
[2016-10-22] MEDS: NICOTINE 21 MG/24 HR PATCH.TD24 TD SCH (09:11)
[2016-10-22] MEDS: MULTIVITAMIN TABLET PO SCH (09:12)
[2016-10-22] MEDS: POTASSIUM CHLORIDE 10 MEQ TABLET.SA PO SCH ×2 (09:12→22:27)
[2016-10-22] MEDS: THIAMINE HCL 100 MG TABLET PO SCH (09:13)
[2016-10-22] MEDS: ESCITALOPRAM OXALATE 10 MG TABLET PO SCH (09:13)
[2016-10-22] MEDS: FOLIC ACID 1 MG TABLET PO SCH (09:13)
[2016-10-22] MEDS: TIMOLOL MALEATE 0.25% OPH SOLN 5 ML OD SCH (09:14)
[2016-10-22] MEDS: LANSOPRAZOLE 30 MG TAB.RAP.DR PO SCH (09:14)
[2016-10-22] MEDS: NYSTATIN TOPICAL POWDER 15 GM TP SCH ×2 (09:21→22:28)
--- NOTE | 2016-10-22 09:33 | PDOC PROGRESS REPORT ---
Subjective Progress Note for:: 10/22/16 Subjective:: Patient is more confused today. Physical Exam Vital Signs: Temp Pulse Resp BP Pulse Ox 97.8 F 87 16 133/69 H 96 10/22/16 07:58 10/22/16 07:58 10/22/16 07:58 10/22/16 07:58 10/22/16 07:58 Intake & Output 10/21/16 10/22/16 10/23/16 06:59 06:59 06:59 Intake Total 2902 3093 Output Total 4500 4325 Balance -1598 -1232 Weight 73.9 kg 73.9 kg General appearance: PRESENT: no acute distress Eye exam: PRESENT: conjunctiva pink. ABSENT: scleral icterus Mouth exam: PRESENT: moist, tongue midline Neck exam: ABSENT: JVD Respiratory exam: PRESENT: clear to auscultation ashley. ABSENT: rales, rhonchi, wheezes Cardiovascular exam: PRESENT: RRR. ABSENT: diastolic murmur, rubs, systolic murmur GI/Abdominal exam: PRESENT: normal bowel sounds, soft. ABSENT: distended, guarding, mass, organolmegaly, rebound, tenderness Extremities exam: ABSENT: calf tenderness, clubbing, pedal edema Neurological exam: PRESENT: awake, oriented to person. ABSENT: oriented to place, oriented to time, oriented to situation Psychiatric exam: PRESENT: appropriate affect Skin exam: PRESENT: dry, intact, warm. ABSENT: cyanosis, rash Results Laboratory Results: 10/22/16 05:40 10/22/16 05:40 10/22/16 10/22/16 05:40 05:40 WBC 6.9 RBC 4.26 L Hgb 13.8 Hct 40.2 MCV 94 MCH 32.4 MCHC 34.3 RDW 15.1 H Plt Count 240 Seg Neutrophils % 64.3 Lymphocytes % 23.3 Monocytes % 10.3 Eosinophils % 1.1 Basophils % 1.0 Absolute Neutrophils 4.4 Absolute Lymphocytes 1.6 Absolute Monocytes 0.7 Absolute Eosinophils 0.1 Absolute Basophils 0.1 Sodium 141.1 Potassium 3.7 Chloride 107 Carbon Dioxide 24 Anion Gap 10 BUN 7 Creatinine 0.63 Est GFR ( Amer) > 60 Est GFR (Non-Af Amer) > 60 Glucose 82 Calcium 9.5 Impressions: Head CT 10/12/16 19:01 IMPRESSION: MILD CHRONIC CHANGES OF ATROPHY AND MICROVASCULAR ISCHEMIA. NO ACUTE PROCESS. 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 - Alcohol dependence with withdrawal with perceptual disturbance Is this a current diagnosis for this admission?: Yes Plan: His mental status is slightly worse today. Will continue with benzodiazepines as needed (2) Elevated LFTs Is this a current diagnosis for this admission?: Yes Plan: Secondary to alcohol use. They have improved. (3) Hyperlipidemia Qualifiers: Hyperlipidemia type: unspecified Qualified Code(s): E78.5 - Hyperlipidemia , unspecified Is this a current diagnosis for this admission?: Yes Plan: Continue with Lipitor. (4) Hypertension Qualifiers: Hypertension type: essential hypertension Qualified Code(s): I10 - Essential (primary) hypertension Is this a current diagnosis for this admission?: Yes Plan: Controlled without medications at this time. (5) Hyponatremia Is this a current diagnosis for this admission?: Yes Plan: Resolved (6) Vascular dementia Qualifiers: Dementia behavioral disturbance: without behavioral disturbance Qualified Code(s): F01.50 - Vascular dementia without behavioral disturbance Is this a current diagnosis for this admission?: Yes Plan: Continue with Risperdal (7) Diabetes mellitus type 1 Qualifiers: Diabetes mellitus complication status: without complication Qualified Code( s): E10.9 - Type 1 diabetes mellitus without complications Is this a current diagnosis for this admission?: Yes Plan: Continue with sliding scale insulin. - Time Time Spent with patient: 25-34 minutes - Inpatient Certification Medical Necessity: Need Close Monitoring Due to Risk of Patient Decompensation
[2016-10-22] MEDS: PROMETHAZINE HCL 25 MG TABLET PO PRN (12:09)
[2016-10-22] MEDS ORDERED: ONDANSETRON HCL INJ/PF 4 MG/2 ML SDV IV PRN (13:45)
[2016-10-22] MEDS ORDERED: HALOPERIDOL 5 MG TABLET PO PRN (14:18)
[2016-10-22] MEDS ORDERED: HALOPERIDOL LACTATE INJ 5 MG/1 ML VIAL ONE (14:45)
[2016-10-22] MEDS: HALOPERIDOL LACTATE INJ 5 MG/1 ML VIAL IV PRN (21:11)
[2016-10-22] MEDS: TAMSULOSIN HCL 0.4 MG CAP.SR.24H PO SCH (21:42)
[2016-10-22] MEDS: ATORVASTATIN CALCIUM 20 MG TABLET PO SCH (22:27)
[2016-10-22] MEDS: RISPERIDONE 1 MG TABLET PO SCH (22:27)
[2016-10-22] MEDS: LATANOPROST 0.005% OPH SOLN 2.5 ML OD SCH (22:27)
[2016-10-22] MEDS: INSULIN GLARGINE,HUM.REC.ANLOG 300 UNIT/3 ML INSULN.PEN SUBCUT SCH (22:28)
[2016-10-23] MEDS: BACITRACIN OPH OINT 3.5 GM OU SCH ×4 (05:58→23:16)
[2016-10-23] MEDS: NORMAL SALINE 1000 ML 1,000 ML IV PRN ×2 (06:52→17:41)
[2016-10-23] MEDS: HALOPERIDOL LACTATE INJ 5 MG/1 ML VIAL IV PRN ×2 (06:53→19:23)
[2016-10-23] MEDS: NICOTINE 21 MG/24 HR PATCH.TD24 TD SCH (09:40)
[2016-10-23] MEDS: MULTIVITAMIN TABLET PO SCH (09:41)
[2016-10-23] MEDS: ESCITALOPRAM OXALATE 10 MG TABLET PO SCH (09:41)
[2016-10-23] MEDS: FOLIC ACID 1 MG TABLET PO SCH (09:41)
[2016-10-23] MEDS: THIAMINE HCL 100 MG TABLET PO SCH (09:41)
[2016-10-23] MEDS: POTASSIUM CHLORIDE 10 MEQ TABLET.SA PO SCH ×2 (09:41→21:05)
[2016-10-23] MEDS: LANSOPRAZOLE 30 MG TAB.RAP.DR PO SCH (09:42)
[2016-10-23] MEDS: ENOXAPARIN SODIUM INJ 40 MG/0.4 ML DISP.SYRIN SUBCUT SCH (09:42)
[2016-10-23] MEDS: TIMOLOL MALEATE 0.25% OPH SOLN 5 ML OD SCH (09:50)
[2016-10-23] MEDS: NYSTATIN TOPICAL POWDER 15 GM TP SCH (09:50)
--- NOTE | 2016-10-23 13:20 | PDOC PROGRESS REPORT ---
Subjective Progress Note for:: 10/23/16 Subjective:: Patient is alert and oriented 3 Physical Exam Vital Signs: Temp Pulse Resp BP Pulse Ox 97.5 F 70 18 143/65 H 100 10/23/16 11:09 10/23/16 11:09 10/23/16 11:09 10/23/16 11:09 10/23/16 11:09 Intake & Output 10/22/16 10/23/16 10/24/16 06:59 06:59 06:59 Intake Total 3093 2360 Output Total 4325 2325 Balance -1232 35 Weight 73.9 kg 68.9 kg General appearance: PRESENT: no acute distress Eye exam: PRESENT: conjunctiva pink. ABSENT: scleral icterus Mouth exam: PRESENT: moist, tongue midline Neck exam: ABSENT: JVD Respiratory exam: PRESENT: clear to auscultation ashley. ABSENT: rales, rhonchi, wheezes Cardiovascular exam: PRESENT: RRR. ABSENT: diastolic murmur, rubs, systolic murmur GI/Abdominal exam: PRESENT: normal bowel sounds, soft. ABSENT: distended, guarding, mass, organolmegaly, rebound, tenderness Neurological exam: PRESENT: alert, awake, oriented to person, oriented to place , oriented to time, oriented to situation, CN II-XII grossly intact. ABSENT: motor sensory deficit Psychiatric exam: PRESENT: appropriate affect Skin exam: PRESENT: dry, intact, warm. ABSENT: cyanosis, rash Results Laboratory Results: 10/22/16 05:40 10/22/16 05:40 Impressions: Head CT 10/12/16 19:01 IMPRESSION: MILD CHRONIC CHANGES OF ATROPHY AND MICROVASCULAR ISCHEMIA. NO ACUTE PROCESS. 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 - Alcohol dependence with withdrawal with perceptual disturbance Is this a current diagnosis for this admission?: Yes Plan: His mental status is improved today. Will continue with benzodiazepines as needed (2) Elevated LFTs Is this a current diagnosis for this admission?: Yes Plan: Secondary to alcohol use. They have improved. (3) Hyperlipidemia Qualifiers: Hyperlipidemia type: unspecified Qualified Code(s): E78.5 - Hyperlipidemia , unspecified Is this a current diagnosis for this admission?: Yes Plan: Continue with Lipitor. (4) Hypertension Qualifiers: Hypertension type: essential hypertension Qualified Code(s): I10 - Essential (primary) hypertension Is this a current diagnosis for this admission?: Yes Plan: Controlled without medications at this time. (5) Hyponatremia Is this a current diagnosis for this admission?: Yes Plan: Resolved (6) Vascular dementia Qualifiers: Dementia behavioral disturbance: without behavioral disturbance Qualified Code(s): F01.50 - Vascular dementia without behavioral disturbance Is this a current diagnosis for this admission?: Yes Plan: Continue with Risperdal (7) Diabetes mellitus type 1 Qualifiers: Diabetes mellitus complication status: without complication Qualified Code( s): E10.9 - Type 1 diabetes mellitus without complications Is this a current diagnosis for this admission?: Yes Plan: Continue with Lantus and sliding scale insulin. - Time Time Spent with patient: 25-34 minutes - Inpatient Certification Medical Necessity: Need Close Monitoring Due to Risk of Patient Decompensation - Plan Summary Plan Summary: Patient is to be discharged to skilled nurse facility when a bed becomes available.
[2016-10-23] MEDS: TAMSULOSIN HCL 0.4 MG CAP.SR.24H PO SCH (17:43)
[2016-10-23] MEDS: LATANOPROST 0.005% OPH SOLN 2.5 ML OD SCH (21:04)
[2016-10-23] MEDS: RISPERIDONE 1 MG TABLET PO SCH (21:05)
[2016-10-23] MEDS: ATORVASTATIN CALCIUM 20 MG TABLET PO SCH (21:05)
[2016-10-23] MEDS: INSULIN GLARGINE,HUM.REC.ANLOG 300 UNIT/3 ML INSULN.PEN SUBCUT SCH (21:53)
[2016-10-24 07:01] LABS: ABSOLUTE EOSINOPHILS # (AUTO) 0.1 10^3/uL (0.0-0.6); ABSOLUTE LYMPHOCYTES (AUTO) 1.7 10^3/uL (0.5-4.7); ABSOLUTE MONOCYTES (AUTO) 0.7 10^3/uL (0.1-1.4); BASOPHILS % (AUTO) 0.6 % (0-2); EOSINOPHILS % (AUTO) 1.3 % (0-6); HEMATOCRIT 42.3 % (37.9-51.0); HEMOGLOBIN 14.7 g/dL (13.5-17.0); HGB HCT DIFFERENCE 1.8; LYMPHOCYTES % (AUTO) 22.6 % (13-45); MEAN CORPUSCULAR HEMOGLOBIN 33.1 pg (27.0-33.4); MEAN CORPUSCULAR HGB CONC 34.8 g/dL (32.0-36.0); MEAN CORPUSCULAR VOLUME 95 fl (80-97); MONOCYTES % (AUTO) 9.3 % (3-13); RED BLOOD COUNT 4.45 10^6/uL (4.35-5.55); RED CELL DISTRIBUTION WIDTH 14.7 % (11.5-14.0); SEGMENTED NEUTROPHILS % (AUTO) 66.2 % (42-78); WHITE BLOOD COUNT 7.5 10^3/uL (4.0-10.5)
[2016-10-24 07:16] LABS: ANION GAP 5 (5-19); BLOOD UREA NITROGEN 12 mg/dL (7-20); CALCIUM 9.5 mg/dL (8.4-10.2); CARBON DIOXIDE 30 mmol/L (22-30); CHLORIDE 106 mmol/L (98-107); CREATININE RESULT 0.68 mg/dL (0.52-1.25); GLUCOSE 76 mg/dL (75-110); POTASSIUM 3.8 mmol/L (3.6-5.0); SODIUM 141.3 mmol/L (137-145)
[2016-10-24] MEDS: NICOTINE 21 MG/24 HR PATCH.TD24 TD SCH (11:04)
[2016-10-24] MEDS: THIAMINE HCL 100 MG TABLET PO SCH (11:05)
[2016-10-24] MEDS: MULTIVITAMIN TABLET PO SCH (11:05)
[2016-10-24] MEDS: FOLIC ACID 1 MG TABLET PO SCH (11:05)
[2016-10-24] MEDS: POTASSIUM CHLORIDE 10 MEQ TABLET.SA PO SCH (11:05)
[2016-10-24] MEDS: TIMOLOL MALEATE 0.25% OPH SOLN 5 ML OD SCH (11:06)
[2016-10-24] MEDS: LANSOPRAZOLE 30 MG TAB.RAP.DR PO SCH (11:06)
[2016-10-24] MEDS: ESCITALOPRAM OXALATE 10 MG TABLET PO SCH (11:06)
[2016-10-24] MEDS: ENOXAPARIN SODIUM INJ 40 MG/0.4 ML DISP.SYRIN SUBCUT SCH (11:06)
[2016-10-24] MEDS ORDERED: NORMAL SALINE 1000 ML 1,000 ML IV PRN (14:09)
--- NOTE | 2016-10-24 14:18 | PDOC PROGRESS REPORT ---
Subjective Progress Note for:: 10/24/16 Subjective:: Patient is now alert awake and engaging in conversation. Reported intermittent confusion and mild agitation otherwise tolerating oral intake well, no reported respiratory distress, no reported diarrhea. Likewise there is no nausea or vomiting nor any aggressive behavior. Physical Exam Vital Signs: Temp Pulse Resp BP Pulse Ox 98.6 F 73 16 118/65 100 10/24/16 11:55 10/24/16 11:55 10/24/16 11:55 10/24/16 11:55 10/24/16 11:55 Intake & Output 10/23/16 10/24/16 10/25/16 06:59 06:59 06:59 Intake Total 2360 3550 Output Total 2325 4000 Balance 35 -450 Weight 68.9 kg 68.3 kg General appearance: PRESENT: no acute distress, cooperative Head exam: PRESENT: normocephalic Eye exam: PRESENT: EOMI Mouth exam: PRESENT: moist, neck supple Neck exam: ABSENT: JVD Respiratory exam: PRESENT: clear to auscultation ashley. ABSENT: rhonchi, wheezes Cardiovascular exam: PRESENT: RRR. ABSENT: gallop GI/Abdominal exam: PRESENT: normal bowel sounds, soft. ABSENT: distended Extremities exam: ABSENT: pedal edema Neurological exam: PRESENT: alert, awake, oriented to person, oriented to time, oriented to situation. ABSENT: oriented to place Skin exam: PRESENT: dry, warm. ABSENT: cyanosis Results Laboratory Results: 10/24/16 06:52 10/24/16 06:52 10/24/16 10/24/16 06:52 06:52 WBC 7.5 RBC 4.45 Hgb 14.7 Hct 42.3 MCV 95 MCH 33.1 MCHC 34.8 RDW 14.7 H Plt Count 289 Seg Neutrophils % 66.2 Lymphocytes % 22.6 Monocytes % 9.3 Eosinophils % 1.3 Basophils % 0.6 Absolute Neutrophils 5.0 Absolute Lymphocytes 1.7 Absolute Monocytes 0.7 Absolute Eosinophils 0.1 Absolute Basophils 0.0 Sodium 141.3 Potassium 3.8 Chloride 106 Carbon Dioxide 30 Anion Gap 5 BUN 12 Creatinine 0.68 Est GFR ( Amer) > 60 Est GFR (Non-Af Amer) > 60 Glucose 76 Calcium 9.5 Impressions: Head CT 10/12/16 19:01 IMPRESSION: MILD CHRONIC CHANGES OF ATROPHY AND MICROVASCULAR ISCHEMIA. NO ACUTE PROCESS. 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 - Alcohol dependence with withdrawal with perceptual disturbance Is this a current diagnosis for this admission?: Yes (2) Hyponatremia Is this a current diagnosis for this admission?: Yes (3) Vascular dementia Qualifiers: Dementia behavioral disturbance: without behavioral disturbance Qualified Code(s): F01.50 - Vascular dementia without behavioral disturbance Is this a current diagnosis for this admission?: Yes (4) Hypertension Qualifiers: Hypertension type: essential hypertension Qualified Code(s): I10 - Essential (primary) hypertension Is this a current diagnosis for this admission?: Yes (5) Hyperlipidemia Qualifiers: Hyperlipidemia type: unspecified Qualified Code(s): E78.5 - Hyperlipidemia , unspecified Is this a current diagnosis for this admission?: Yes (6) Diabetes mellitus type 1 Qualifiers: Diabetes mellitus complication status: without complication Qualified Code( s): E10.9 - Type 1 diabetes mellitus without complications Is this a current diagnosis for this admission?: Yes - Time Time Spent with patient: 25-34 minutes - Plan Summary Plan Summary: Discontinue Casas catheter. Discontinue intravenous fluid. Discontinue as needed Haldol. Discontinue potassium. Continue supportive care. Increase activity. Awaiting placement. Begin PT.
[2016-10-24] MEDS: TAMSULOSIN HCL 0.4 MG CAP.SR.24H PO SCH (18:12)
[2016-10-24] MEDS: ATORVASTATIN CALCIUM 20 MG TABLET PO SCH (21:04)
[2016-10-24] MEDS: RISPERIDONE 1 MG TABLET PO SCH (21:05)
[2016-10-24] MEDS: LATANOPROST 0.005% OPH SOLN 2.5 ML OD SCH (21:07)
[2016-10-24] MEDS: INSULIN GLARGINE,HUM.REC.ANLOG 300 UNIT/3 ML INSULN.PEN SUBCUT SCH (21:07)
[2016-10-25 00:13] LABS: ABSOLUTE BASOPHILS # (AUTO) 0.1 10^3/uL (0.0-0.2); ABSOLUTE EOSINOPHILS # (AUTO) 0.1 10^3/uL (0.0-0.6); ABSOLUTE LYMPHOCYTES (AUTO) 1.9 10^3/uL (0.5-4.7); ABSOLUTE MONOCYTES (AUTO) 0.7 10^3/uL (0.1-1.4); BASOPHILS % (AUTO) 0.9 % (0-2); EOSINOPHILS % (AUTO) 1.1 % (0-6); HEMATOCRIT 43.2 % (37.9-51.0); HEMOGLOBIN 14.6 g/dL (13.5-17.0); HGB HCT DIFFERENCE 0.6; LYMPHOCYTES % (AUTO) 21.6 % (13-45); MEAN CORPUSCULAR HEMOGLOBIN 32.3 pg (27.0-33.4); MEAN CORPUSCULAR HGB CONC 33.8 g/dL (32.0-36.0); MEAN CORPUSCULAR VOLUME 95 fl (80-97); MONOCYTES % (AUTO) 7.7 % (3-13); RED BLOOD COUNT 4.52 10^6/uL (4.35-5.55); RED CELL DISTRIBUTION WIDTH 14.7 % (11.5-14.0); SEGMENTED NEUTROPHILS % (AUTO) 68.7 % (42-78); WHITE BLOOD COUNT 8.7 10^3/uL (4.0-10.5)
[2016-10-25 00:20] LABS: PROTHROMBIN TIME 13.6 SEC (11.4-15.4)
--- NOTE | 2016-10-25 00:21 | RADIOLOGY REPORT (SQ) ---
EXAM DESCRIPTION: CT HEAD WITHOUT COMPLETED DATE/TIME: 10/25/2016 12:09 am REASON FOR STUDY: stroke protocol T14.8 OTHER INJURY OF UNSPECIFIED BODY REGION COMPARISON: None. TECHNIQUE: Axial images acquired through the brain without intravenous contrast. Images reviewed wi th bone, brain and subdural windows. Images stored on PACS. All CT scanners at this facility use dose modulation, iterative reconstruction, and/or weight based d osing when appropriate to reduce radiation dose to as low as reasonably achievable (ALARA). [facility]: Dose Right [facility]: CareDose [facility]: Dose Right [facility]: Teradose 4D [facility]: Smart Ancera RADIATION DOSE: Up-to-date CT equipment and radiation dose reduction techniques were employed. CTDIv ol: 67.0 mGy. DLP: 1316 mGy-cm. mGy. LIMITATIONS: None. FINDINGS: VENTRICLES: Normal size and contour. CEREBRUM: No masses. No hemorrhage. No midline shift. Normal hugo/white matter differentiation. N o evidence for acute infarction.Minimal cerebral volume loss. CEREBELLUM: No masses. No hemorrhage. No alteration of density. No evidence for acute infarction. EXTRAAXIAL SPACES: No fluid collections. No masses. ORBITS AND GLOBE: No intra- or extraconal masses. Normal contour of globe without masses. CALVARIUM: No fracture. PARANASAL SINUSES: No fluid or mucosal thickening. SOFT TISSUES: No mass or hematoma. OTHER: No other significant finding. IMPRESSION: NORMAL BRAIN CT WITHOUT CONTRAST. COMMENT: This report was called to KIM MUNOZ MD at00:14 on 10/25/2016. TECHNICAL DOCUMENTATION: JOB ID: [id number] Quality ID # [id number]: Final reports with documentation of one or more dose reduction techniques (e.g., Au tomated exposure control, adjustment of the mA and/or kV according to patient size, use of iterative reconstruction technique) 2010 [employer]- All Rights Reserved
[2016-10-25 00:23] LABS: PARTIAL THROMBOPLASTIN TIME 31.3 SEC (23.5-35.8)
[2016-10-25 00:41] LABS: ALANINE AMINOTRANSFERASE 40 U/L (21-72); ALBUMIN 3.8 g/dL (3.5-5.0); ALKALINE PHOSPHATASE 65 U/L (38-126); ANION GAP 6 (5-19); ASPARTATE AMINO TRANSFERASE 31 U/L (17-59); BILIRUBIN,DIRECT 0.4 mg/dL (0.0-0.4); BILIRUBIN,TOTAL 0.6 mg/dL (0.2-1.3); BLOOD UREA NITROGEN 20 mg/dL (7-20); CALCIUM 9.7 mg/dL (8.4-10.2); CARBON DIOXIDE 27 mmol/L (22-30); CHLORIDE 103 mmol/L (98-107); CREATINE KINASE 69 U/L (55-170); CREATININE RESULT 0.89 mg/dL (0.52-1.25); GLUCOSE 131 mg/dL (75-110); POTASSIUM 4.1 mmol/L (3.6-5.0); SODIUM 136.3 mmol/L (137-145)
[2016-10-25 01:13] LABS: CREATINE KINASE MB 1.55 ng/mL (<4.55)
[2016-10-25 01:15] LABS: TROPONIN I < 0.012 ng/mL
--- NOTE | 2016-10-25 03:50 | RADIOLOGY REPORT (SQ) ---
EXAM DESCRIPTION: CHEST SINGLE VIEW COMPLETED DATE/TIME: 10/25/2016 12:15 am REASON FOR STUDY: stroke protocol COMPARISON: 10/13/2015. EXAM PARAMETERS: NUMBER OF VIEWS: One view. TECHNIQUE: Single frontal radiographic view of the chest acquired. RADIATION DOSE: NA LIMITATIONS: None. FINDINGS: LUNGS AND PLEURA: Mild interstitial markings. MEDIASTINUM AND HILAR STRUCTURES: No masses. Contour normal. HEART AND VASCULAR STRUCTURES: Heart normal in size. Atherosclerosis. BONES: No acute findings. HARDWARE: None in the chest. OTHER: No other significant finding. IMPRESSION: No acute cardiopulmonary findings. TECHNICAL DOCUMENTATION: JOB ID: [id number]
[2016-10-25] MEDS: ACETAMINOPHEN 325 MG TABLET PO PRN (06:30)
--- NOTE | 2016-10-25 08:23 | Progress Note ---
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 Last noted to be normal approximately 11:30 PM on the . Prior to my seeing the patient, ICU nurse went to the patient's bedside per stroke code alert protocol and examined the patient, noting very mild right facial droop, but otherwise no neurologic deficit. NIH score of 1. I went to the patient's side upon his arrival in CT scan. After completion of the study my examination confirmed findings of the intensive care unit nurse, of faintly visible drooping of the right corner of the mouth only, with NIH score of only 1. Patient was awake and alert and appropriately conversant. Shortly after patient was transferred to [facility] bed, repeat examination by both myself and the ICU nurse revealed that his facial droop had essentially completely resolved. Overall impression and plans were discussed with patient in layperson's terms. Told him of our concern that he may have suffered a mild stroke or mini stroke. Told him that sometimes strokes are treated with a "clot buster" drug, but that in his case, with his symptoms essentially having resolved, he was not a candidate for this medication, which could cause serious internal bleeding. He accepted this well. We will proceed with the typical imaging procedures for TIA/stroke protocol workup. Above discussed with day hospitalist team. 50 minutes critical care time spent in evaluation management of patient.
[2016-10-25] MEDS: ENOXAPARIN SODIUM INJ 40 MG/0.4 ML DISP.SYRIN SUBCUT SCH (09:16)
[2016-10-25] MEDS: NICOTINE 21 MG/24 HR PATCH.TD24 TD SCH (09:16)
[2016-10-25] MEDS: THIAMINE HCL 100 MG TABLET PO SCH (09:16)
[2016-10-25] MEDS: FOLIC ACID 1 MG TABLET PO SCH (09:17)
[2016-10-25] MEDS: LANSOPRAZOLE 30 MG TAB.RAP.DR PO SCH (09:17)
[2016-10-25] MEDS: MULTIVITAMIN TABLET PO SCH (09:19)
[2016-10-25] MEDS: ESCITALOPRAM OXALATE 10 MG TABLET PO SCH (09:19)
[2016-10-25] MEDS: TIMOLOL MALEATE 0.25% OPH SOLN 5 ML OD SCH (09:20)
--- NOTE | 2016-10-25 10:24 | EKG REPORT ---
SEVERITY:- ABNORMAL ECG - PROBALE SR CAN NOT R/O ACCELERATED JUNCTIONAL RHYTHM, REC REPEAT EKG LOW VOLTAGE THROUGHOUT CONSIDER ANTERIOR INFARCT : Confirmed by: Lori Martines 25-Oct-2016 10:22:43
[2016-10-25] MEDS ORDERED: CLONAZEPAM 1 MG TABLET PO ONE (11:32)
--- NOTE | 2016-10-25 11:38 | PDOC PROGRESS REPORT ---
Subjective Progress Note for:: 10/25/16 Subjective:: Reported facial drooping that resolved. Transfered to [facility] for ? stroke like symptoms. Possible seizure-like activity earlier as reported by staff. Pt w/ underlying dementia and confusion. Physical Exam Vital Signs: Temp Pulse Resp BP Pulse Ox 98.4 F 81 16 128/60 H 97 10/25/16 08:15 10/25/16 08:15 10/25/16 08:15 10/25/16 08:15 10/25/16 08:15 Intake & Output 10/24/16 10/25/16 10/26/16 06:59 06:59 06:59 Intake Total 3550 2481 Output Total 4000 800 Balance -450 1681 Weight 68.3 kg General appearance: PRESENT: no acute distress Head exam: PRESENT: normocephalic Eye exam: PRESENT: EOMI Mouth exam: PRESENT: moist, neck supple Neck exam: ABSENT: JVD Respiratory exam: PRESENT: clear to auscultation ashley. ABSENT: rhonchi, wheezes Cardiovascular exam: PRESENT: RRR. ABSENT: gallop GI/Abdominal exam: PRESENT: soft. ABSENT: distended, tenderness Extremities exam: ABSENT: pedal edema Neurological exam: PRESENT: alert, awake, other - moves all 4 extremities equally Psychiatric exam: PRESENT: other - dementia Skin exam: PRESENT: dry, warm. ABSENT: cyanosis Results Laboratory Results: 10/25/16 00:00 10/25/16 00:00 10/25/16 10/25/16 00:00 00:00 WBC 8.7 RBC 4.52 Hgb 14.6 Hct 43.2 MCV 95 MCH 32.3 MCHC 33.8 RDW 14.7 H Plt Count 284 Seg Neutrophils % 68.7 Lymphocytes % 21.6 Monocytes % 7.7 Eosinophils % 1.1 Basophils % 0.9 Absolute Neutrophils 6.0 Absolute Lymphocytes 1.9 Absolute Monocytes 0.7 Absolute Eosinophils 0.1 Absolute Basophils 0.1 Sodium 136.3 L Potassium 4.1 Chloride 103 Carbon Dioxide 27 Anion Gap 6 BUN 20 Creatinine 0.89 Est GFR ( Amer) > 60 Est GFR (Non-Af Amer) > 60 Glucose 131 H Calcium 9.7 Total Bilirubin 0.6 AST 31 ALT 40 Alkaline Phosphatase 65 Total Protein 6.0 L Albumin 3.8 10/25/16 10/25/16 00:00 00:00 Creatine Kinase 69 CK-MB (CK-2) 1.55 Troponin I < 0.012 Impressions: Chest X-Ray 10/24/16 00:00 IMPRESSION: No acute cardiopulmonary findings. Head CT 10/24/16 00:00 IMPRESSION: NORMAL BRAIN CT WITHOUT CONTRAST. 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 - Alcohol dependence with withdrawal with perceptual disturbance Is this a current diagnosis for this admission?: Yes (2) Hyponatremia Is this a current diagnosis for this admission?: Yes (3) Vascular dementia Qualifiers: Dementia behavioral disturbance: without behavioral disturbance Qualified Code(s): F01.50 - Vascular dementia without behavioral disturbance Is this a current diagnosis for this admission?: Yes (4) Hypertension Qualifiers: Hypertension type: essential hypertension Qualified Code(s): I10 - Essential (primary) hypertension Is this a current diagnosis for this admission?: Yes (5) Hyperlipidemia Qualifiers: Hyperlipidemia type: unspecified Qualified Code(s): E78.5 - Hyperlipidemia , unspecified Is this a current diagnosis for this admission?: Yes (6) Diabetes mellitus type 1 Qualifiers: Diabetes mellitus complication status: without complication Qualified Code( s): E10.9 - Type 1 diabetes mellitus without complications Is this a current diagnosis for this admission?: Yes - Time Time Spent with patient: 25-34 minutes - Plan Summary Plan Summary: Doubt stroke. Patient reportedly refused carotid doppler and echo. We will cancel test. Resume klonopin. Possible WDL seizures. Begin ASA.
[2016-10-25] MEDS ORDERED: CLONAZEPAM 1 MG TABLET PO PRN (11:45)
[2016-10-25] MEDS ORDERED: ASPIRIN 81 MG TABLET, CHEWABLE PO ONE (12:30)
--- NOTE | 2016-10-25 15:53 | RADIOLOGY REPORT (SQ) ---
EXAM DESCRIPTION: MRI HEAD WITHOUT; MRA HEAD WITHOUT COMPLETED DATE/TIME: 10/25/2016 3:35 pm; 10/25/2016 3:34 pm REASON FOR STUDY: TIA VS CVA--RIGHT FACIAL DROOP T14.8 OTHER INJURY OF UNSPECIFIED BODY REGION COMPARISON: CT brain 10/13/2015, 10/12/2016, 10/25/2016 TECHNIQUE: Multiplanar imaging includes non-contrasted T1, T2, FLAIR, and diffusion with ADC map seq uences. Images stored on PACS. 3D [id number] [place] noncontrast MRA was performed, source data and maximum intensity p rojected images were reviewed. LIMITATIONS: None. FINDINGS: ANATOMY: No developmental anomalies. Normal vascular flow voids. Pituitary fossa normal. CSF SPACES: Normal in size and contour for age. No hemorrhage. CEREBRUM: Sulci and gyri normal in size and contour. Normal white matter signal on FLAIR imaging. No evidence of hemorrhage, mass, or extraaxial fluid collection. POSTERIOR FOSSA: No signal alteration. No hemorrhage. No edema, masses or mass effect. Internal meena tory canals, cerebello-pontine angles, mastoids normal. DIFFUSION IMAGING: Negative for acute or sub-acute infarction. ORBITS: No masses. Globes post cataract surgery. PARANASAL SINUSES: No fluid levels. Mucosa normal. [place] MRA: No [place] stenosis, vascular malformation, or aneurysm. Anatomic alanna iant, origin right posterior cerebral artery. No other significant finding. IMPRESSION: NORMAL MRI OF THE BRAIN WITHOUT INTRAVENOUS GADOLINIUM CONTRAST. NORMAL MRA EXAM [place] EVIDENCE OF ACUTE STROKE: NO. TECHNICAL DOCUMENTATION: JOB ID: [id number]- All Rights Reserved
--- NOTE | 2016-10-25 15:53 | RADIOLOGY REPORT (SQ) ---
EXAM DESCRIPTION: MRI HEAD WITHOUT; MRA HEAD WITHOUT COMPLETED DATE/TIME: 10/25/2016 3:35 pm; 10/25/2016 3:34 pm REASON FOR STUDY: TIA VS CVA--RIGHT FACIAL DROOP T14.8 OTHER INJURY OF UNSPECIFIED BODY REGION COMPARISON: CT brain 10/13/2015, 10/12/2016, 10/25/2016 TECHNIQUE: Multiplanar imaging includes non-contrasted T1, T2, FLAIR, and diffusion with ADC map seq uences. Images stored on PACS. 3D [id number] [place] noncontrast MRA was performed, source data and maximum intensity p rojected images were reviewed. LIMITATIONS: None. FINDINGS: ANATOMY: No developmental anomalies. Normal vascular flow voids. Pituitary fossa normal. CSF SPACES: Normal in size and contour for age. No hemorrhage. CEREBRUM: Sulci and gyri normal in size and contour. Normal white matter signal on FLAIR imaging. No evidence of hemorrhage, mass, or extraaxial fluid collection. POSTERIOR FOSSA: No signal alteration. No hemorrhage. No edema, masses or mass effect. Internal meena tory canals, cerebello-pontine angles, mastoids normal. DIFFUSION IMAGING: Negative for acute or sub-acute infarction. ORBITS: No masses. Globes post cataract surgery. PARANASAL SINUSES: No fluid levels. Mucosa normal. [place] MRA: No [place] stenosis, vascular malformation, or aneurysm. Anatomic alanna iant, origin right posterior cerebral artery. No other significant finding. IMPRESSION: NORMAL MRI OF THE BRAIN WITHOUT INTRAVENOUS GADOLINIUM CONTRAST. NORMAL MRA EXAM [place] EVIDENCE OF ACUTE STROKE: NO. TECHNICAL DOCUMENTATION: JOB ID: [id number]- All Rights Reserved
[2016-10-25] MEDS ORDERED: HALOPERIDOL LACTATE INJ 5 MG/1 ML VIAL ONE (18:03)
[2016-10-25] MEDS: TAMSULOSIN HCL 0.4 MG CAP.SR.24H PO SCH (18:13)
[2016-10-25] MEDS ORDERED: HALOPERIDOL LACTATE INJ 5 MG/1 ML VIAL IM ONE (18:30)
[2016-10-25] MEDS: RISPERIDONE 1 MG TABLET PO SCH (21:49)
[2016-10-25] MEDS: ATORVASTATIN CALCIUM 20 MG TABLET PO SCH (21:49)
[2016-10-25] MEDS: INSULIN GLARGINE,HUM.REC.ANLOG 300 UNIT/3 ML INSULN.PEN SUBCUT SCH (21:50)
[2016-10-25] MEDS: LATANOPROST 0.005% OPH SOLN 2.5 ML OD SCH (21:51)
--- NOTE | 2016-10-26 09:53 | PDOC PROGRESS REPORT ---
Subjective Progress Note for:: 10/26/16 Subjective:: Patient reportedly slept well, no agitation, no aggressive behavior, no diarrhea , N/V/SOB nor temp spikes. Patient reports he is OK. Physical Exam Vital Signs: Temp Pulse Resp BP Pulse Ox 97.3 F 65 16 108/58 L 95 10/26/16 08:08 10/26/16 08:08 10/26/16 08:08 10/26/16 08:08 10/26/16 08:08 Intake & Output 10/25/16 10/26/16 10/27/16 06:59 06:59 06:59 Intake Total 2481 340 Output Total 800 Balance 1681 340 Weight 65.9 kg General appearance: PRESENT: no acute distress Head exam: PRESENT: normocephalic Eye exam: PRESENT: EOMI Mouth exam: PRESENT: moist, neck supple Neck exam: ABSENT: JVD Respiratory exam: PRESENT: clear to auscultation ashley. ABSENT: rhonchi, wheezes Cardiovascular exam: PRESENT: RRR. ABSENT: gallop GI/Abdominal exam: PRESENT: soft. ABSENT: distended Extremities exam: ABSENT: pedal edema Psychiatric exam: ABSENT: agitated Focused psych exam: ABSENT: restlessness Skin exam: PRESENT: dry, warm. ABSENT: cyanosis Results Laboratory Results: 10/25/16 00:00 10/25/16 00:00 10/25/16 10/25/16 00:00 00:00 Creatine Kinase 69 CK-MB (CK-2) 1.55 Troponin I < 0.012 Impressions: Chest X-Ray 10/24/16 00:00 IMPRESSION: No acute cardiopulmonary findings. Head CT 10/24/16 00:00 IMPRESSION: NORMAL BRAIN CT WITHOUT CONTRAST. Brain MRI with MRA 10/25/16 00:00 IMPRESSION: NORMAL MRI OF THE BRAIN WITHOUT INTRAVENOUS GADOLINIUM CONTRAST. NORMAL MRA EXAM [place] EVIDENCE OF ACUTE STROKE: NO. Head MRI 10/25/16 00:00 IMPRESSION: NORMAL MRI OF THE BRAIN WITHOUT INTRAVENOUS GADOLINIUM CONTRAST. NORMAL MRA EXAM [place] EVIDENCE OF ACUTE STROKE: NO. 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 - Alcohol dependence with withdrawal with perceptual disturbance Is this a current diagnosis for this admission?: Yes (2) Hyponatremia Is this a current diagnosis for this admission?: Yes (3) Vascular dementia Qualifiers: Dementia behavioral disturbance: without behavioral disturbance Qualified Code(s): F01.50 - Vascular dementia without behavioral disturbance Is this a current diagnosis for this admission?: Yes (4) Hypertension Qualifiers: Hypertension type: essential hypertension Qualified Code(s): I10 - Essential (primary) hypertension Is this a current diagnosis for this admission?: Yes (5) Hyperlipidemia Qualifiers: Hyperlipidemia type: unspecified Qualified Code(s): E78.5 - Hyperlipidemia , unspecified Is this a current diagnosis for this admission?: Yes (6) Diabetes mellitus type 1 Qualifiers: Diabetes mellitus complication status: without complication Qualified Code( s): E10.9 - Type 1 diabetes mellitus without complications Is this a current diagnosis for this admission?: Yes - Time Time Spent with patient: 15-24 minutes - Plan Summary Plan Summary: Cont. current meds. His klonopin was resumed at half usual home dose. Hold any haldol for now. Awaiting subacute facility bed.
[2016-10-26] MEDS: ENOXAPARIN SODIUM INJ 40 MG/0.4 ML DISP.SYRIN SUBCUT SCH (11:09)
[2016-10-26] MEDS: ESCITALOPRAM OXALATE 10 MG TABLET PO SCH (11:11)
[2016-10-26] MEDS: THIAMINE HCL 100 MG TABLET PO SCH (11:11)
[2016-10-26] MEDS: ASPIRIN 81 MG TABLET, CHEWABLE PO SCH (11:11)
[2016-10-26] MEDS: LANSOPRAZOLE 30 MG TAB.RAP.DR PO SCH (11:11)
[2016-10-26] MEDS: NICOTINE 21 MG/24 HR PATCH.TD24 TD SCH (11:12)
[2016-10-26] MEDS: FOLIC ACID 1 MG TABLET PO SCH (11:12)
[2016-10-26] MEDS: MULTIVITAMIN TABLET PO SCH (11:12)
[2016-10-26] MEDS: TIMOLOL MALEATE 0.25% OPH SOLN 5 ML OD SCH (11:16)
[2016-10-26] MEDS: CLONAZEPAM 1 MG TABLET PO SCH ×2 (14:38→15:21)
[2016-10-26] MEDS: TAMSULOSIN HCL 0.4 MG CAP.SR.24H PO SCH (18:16)
[2016-10-26] MEDS: RISPERIDONE 1 MG TABLET PO SCH (22:11)
[2016-10-26] MEDS: ATORVASTATIN CALCIUM 20 MG TABLET PO SCH (22:11)
[2016-10-26] MEDS: INSULIN GLARGINE,HUM.REC.ANLOG 300 UNIT/3 ML INSULN.PEN SUBCUT SCH (22:11)
[2016-10-26] MEDS: LATANOPROST 0.005% OPH SOLN 2.5 ML OD SCH (22:12)
[2016-10-27] MEDS: ACETAMINOPHEN 325 MG TABLET PO PRN (04:42)
[2016-10-27] MEDS: TIMOLOL MALEATE 0.25% OPH SOLN 5 ML OD SCH (10:34)
[2016-10-27] MEDS: LANSOPRAZOLE 30 MG TAB.RAP.DR PO SCH (10:35)
[2016-10-27] MEDS: CLONAZEPAM 1 MG TABLET PO SCH ×2 (10:35→21:43)
[2016-10-27] MEDS: ENOXAPARIN SODIUM INJ 40 MG/0.4 ML DISP.SYRIN SUBCUT SCH (10:35)
[2016-10-27] MEDS: FOLIC ACID 1 MG TABLET PO SCH (10:36)
[2016-10-27] MEDS: MULTIVITAMIN TABLET PO SCH (10:36)
[2016-10-27] MEDS: THIAMINE HCL 100 MG TABLET PO SCH (10:37)
[2016-10-27] MEDS: ESCITALOPRAM OXALATE 10 MG TABLET PO SCH (10:37)
[2016-10-27] MEDS: ASPIRIN 81 MG TABLET, CHEWABLE PO SCH (10:37)
[2016-10-27] MEDS: NICOTINE 21 MG/24 HR PATCH.TD24 TD SCH (10:38)
--- NOTE | 2016-10-27 12:25 | PDOC PROGRESS REPORT ---
Subjective Progress Note for:: 10/27/16 Subjective:: Cooperative and calm. No agitation reported. No chills and fever reported. Physical Exam Vital Signs: Temp Pulse Resp BP Pulse Ox 98.0 F 69 16 115/60 98 10/27/16 08:09 10/27/16 08:09 10/27/16 08:09 10/27/16 08:09 10/27/16 08:09 Intake & Output 10/26/16 10/27/16 10/28/16 06:59 06:59 06:59 Intake Total 340 874 Output Total 1200 Balance 340 -326 Weight 65.9 kg 68 kg General appearance: PRESENT: no acute distress, cooperative Head exam: PRESENT: normocephalic Eye exam: PRESENT: EOMI Mouth exam: PRESENT: moist, neck supple Neck exam: ABSENT: JVD Respiratory exam: PRESENT: clear to auscultation ashley Cardiovascular exam: PRESENT: RRR. ABSENT: gallop GI/Abdominal exam: PRESENT: soft. ABSENT: distended, tenderness Extremities exam: ABSENT: pedal edema Neurological exam: PRESENT: alert, awake Psychiatric exam: ABSENT: agitated Focused psych exam: ABSENT: restlessness Skin exam: PRESENT: dry, warm. ABSENT: cyanosis Results Laboratory Results: 10/25/16 00:00 10/25/16 00:00 10/25/16 10/25/16 00:00 00:00 Creatine Kinase 69 CK-MB (CK-2) 1.55 Troponin I < 0.012 Impressions: Chest X-Ray 10/24/16 00:00 IMPRESSION: No acute cardiopulmonary findings. Head CT 10/24/16 00:00 IMPRESSION: NORMAL BRAIN CT WITHOUT CONTRAST. Brain MRI with MRA 10/25/16 00:00 IMPRESSION: NORMAL MRI OF THE BRAIN WITHOUT INTRAVENOUS GADOLINIUM CONTRAST. NORMAL MRA EXAM [place] OF [place]LEX EVIDENCE OF ACUTE STROKE: NO. Head MRI 10/25/16 00:00 IMPRESSION: NORMAL MRI OF THE BRAIN WITHOUT INTRAVENOUS GADOLINIUM CONTRAST. NORMAL MRA EXAM [place] OF [place]LEX EVIDENCE OF ACUTE STROKE: NO. 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 - Alcohol dependence with withdrawal with perceptual disturbance Is this a current diagnosis for this admission?: Yes (2) Hyponatremia Is this a current diagnosis for this admission?: Yes (3) Vascular dementia Qualifiers: Dementia behavioral disturbance: without behavioral disturbance Qualified Code(s): F01.50 - Vascular dementia without behavioral disturbance Is this a current diagnosis for this admission?: Yes (4) Hypertension Qualifiers: Hypertension type: essential hypertension Qualified Code(s): I10 - Essential (primary) hypertension Is this a current diagnosis for this admission?: Yes (5) Hyperlipidemia Qualifiers: Hyperlipidemia type: unspecified Qualified Code(s): E78.5 - Hyperlipidemia , unspecified Is this a current diagnosis for this admission?: Yes (6) Diabetes mellitus type 1 Qualifiers: Diabetes mellitus complication status: without complication Qualified Code( s): E10.9 - Type 1 diabetes mellitus without complications Is this a current diagnosis for this admission?: Yes - Time Time Spent with patient: Less than 15 minutes - Plan Summary Plan Summary: Await placement. Continue curent medications.
[2016-10-27] MEDS: TAMSULOSIN HCL 0.4 MG CAP.SR.24H PO SCH (17:16)
[2016-10-27] MEDS: RISPERIDONE 1 MG TABLET PO SCH (21:42)
[2016-10-27] MEDS: ATORVASTATIN CALCIUM 20 MG TABLET PO SCH (21:43)
[2016-10-27] MEDS: INSULIN GLARGINE,HUM.REC.ANLOG 300 UNIT/3 ML INSULN.PEN SUBCUT SCH (21:43)
[2016-10-27] MEDS: LATANOPROST 0.005% OPH SOLN 2.5 ML OD SCH (21:43)
[2016-10-28] MEDS: ACETAMINOPHEN 325 MG TABLET PO PRN ×2 (00:38→04:30)
[2016-10-28] MEDS ORDERED: LORAZEPAM 0.5 MG TABLET PO ONE (02:00)
[2016-10-28] MEDS: NICOTINE 21 MG/24 HR PATCH.TD24 TD SCH ×2 (02:08→21:19)
[2016-10-28] MEDS: LANSOPRAZOLE 30 MG TAB.RAP.DR PO SCH (07:43)
[2016-10-28] MEDS: FOLIC ACID 1 MG TABLET PO SCH (07:43)
[2016-10-28] MEDS: MULTIVITAMIN TABLET PO SCH (07:43)
[2016-10-28] MEDS: CLONAZEPAM 1 MG TABLET PO SCH ×2 (07:43→21:18)
[2016-10-28] MEDS: ASPIRIN 81 MG TABLET, CHEWABLE PO SCH (07:43)
[2016-10-28] MEDS: ESCITALOPRAM OXALATE 10 MG TABLET PO SCH (07:44)
[2016-10-28] MEDS: THIAMINE HCL 100 MG TABLET PO SCH (07:44)
[2016-10-28] MEDS: ENOXAPARIN SODIUM INJ 40 MG/0.4 ML DISP.SYRIN SUBCUT SCH (07:44)
[2016-10-28] MEDS: TIMOLOL MALEATE 0.25% OPH SOLN 5 ML OD SCH (07:45)
--- NOTE | 2016-10-28 09:08 | PDOC PROGRESS REPORT ---
Subjective Progress Note for:: 10/28/16 Subjective:: Cooperative and calm this am. Patient will have restlessness at night. No chills and fever reported. No diarrhea, SOB. Patient reports no congestion or discomfort. Physical Exam Vital Signs: Temp Pulse Resp BP Pulse Ox 97.4 F 72 18 101/52 L 98 10/28/16 03:36 10/28/16 04:00 10/28/16 04:00 10/28/16 04:00 10/28/16 04:00 Intake & Output 10/27/16 10/28/16 10/29/16 06:59 06:59 06:59 Intake Total 874 2013 Output Total 1200 750 Balance -326 1264 Weight 68 kg 68.4 kg General appearance: PRESENT: no acute distress, cooperative Head exam: PRESENT: normocephalic Eye exam: PRESENT: EOMI Mouth exam: PRESENT: moist, neck supple Neck exam: ABSENT: JVD Respiratory exam: PRESENT: clear to auscultation ashley. ABSENT: rhonchi, wheezes Cardiovascular exam: PRESENT: RRR GI/Abdominal exam: PRESENT: normal bowel sounds, soft. ABSENT: distended Extremities exam: ABSENT: pedal edema Neurological exam: PRESENT: alert, awake Skin exam: PRESENT: dry, warm. ABSENT: cyanosis Results Laboratory Results: 10/25/16 00:00 10/25/16 00:00 10/25/16 10/25/16 00:00 00:00 Creatine Kinase 69 CK-MB (CK-2) 1.55 Troponin I < 0.012 Impressions: Chest X-Ray 10/24/16 00:00 IMPRESSION: No acute cardiopulmonary findings. Head CT 10/24/16 00:00 IMPRESSION: NORMAL BRAIN CT WITHOUT CONTRAST. Brain MRI with MRA 10/25/16 00:00 IMPRESSION: NORMAL MRI OF THE BRAIN WITHOUT INTRAVENOUS GADOLINIUM CONTRAST. NORMAL MRA EXAM [place] OF ALEX EVIDENCE OF ACUTE STROKE: NO. Head MRI 10/25/16 00:00 IMPRESSION: NORMAL MRI OF THE BRAIN WITHOUT INTRAVENOUS GADOLINIUM CONTRAST. NORMAL MRA EXAM [place] OF [place]LEX EVIDENCE OF ACUTE STROKE: NO. 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 - Alcohol dependence with withdrawal with perceptual disturbance Is this a current diagnosis for this admission?: Yes (2) Hyponatremia Is this a current diagnosis for this admission?: Yes (3) Vascular dementia Qualifiers: Dementia behavioral disturbance: without behavioral disturbance Qualified Code(s): F01.50 - Vascular dementia without behavioral disturbance Is this a current diagnosis for this admission?: Yes (4) Hypertension Qualifiers: Hypertension type: essential hypertension Qualified Code(s): I10 - Essential (primary) hypertension Is this a current diagnosis for this admission?: Yes (5) Hyperlipidemia Qualifiers: Hyperlipidemia type: unspecified Qualified Code(s): E78.5 - Hyperlipidemia , unspecified Is this a current diagnosis for this admission?: Yes (6) Diabetes mellitus type 1 Qualifiers: Diabetes mellitus complication status: without complication Qualified Code( s): E10.9 - Type 1 diabetes mellitus without complications Is this a current diagnosis for this admission?: Yes - Time Time Spent with patient: 15-24 minutes - Plan Summary Plan Summary: We will add risperdal qam and PRN haldol. Continue other meds and supportive care.
[2016-10-28] MEDS ORDERED: RISPERIDONE 0.25 MG TABLET PO SCH (10:00)
[2016-10-28] MEDS: RISPERIDONE 0.25 MG TABLET PO SCH (10:12)
[2016-10-28] MEDS: HALOPERIDOL 5 MG TABLET PO PRN (14:32)
[2016-10-28] MEDS: TAMSULOSIN HCL 0.4 MG CAP.SR.24H PO SCH (17:56)
[2016-10-28] MEDS: RISPERIDONE 1 MG TABLET PO SCH (21:18)
[2016-10-28] MEDS: ATORVASTATIN CALCIUM 20 MG TABLET PO SCH (21:18)
[2016-10-28] MEDS: INSULIN GLARGINE,HUM.REC.ANLOG 300 UNIT/3 ML INSULN.PEN SUBCUT SCH (21:22)
[2016-10-28] MEDS: LATANOPROST 0.005% OPH SOLN 2.5 ML OD SCH (21:24)
[2016-10-29] MEDS: TIMOLOL MALEATE 0.25% OPH SOLN 5 ML OD SCH (09:45)
[2016-10-29] MEDS: LANSOPRAZOLE 30 MG TAB.RAP.DR PO SCH (09:48)
--- NOTE | 2016-10-29 09:55 | PDOC PROGRESS REPORT ---
Subjective Progress Note for:: 10/29/16 Subjective:: Patient reportedly awake last night. Started to rest early this morning. No reported aggressive behavior. Family at bedside and reports patient has been active at home a month before being brought to the hospital. Patient used to drive and be on himself. Family likewise reports unlikely to care for him when he returns back home. No reported respiratory distress, temperature spikes, nausea vomiting or diarrhea. Physical Exam Vital Signs: Temp Pulse Resp BP Pulse Ox 98.3 F 68 16 116/65 100 10/29/16 07:53 10/29/16 07:53 10/29/16 07:53 10/29/16 07:53 10/29/16 07:53 Intake & Output 10/28/16 10/29/16 10/30/16 06:59 06:59 06:59 Intake Total 2013 574 Output Total 750 0 Balance 1264 574 Weight 68.4 kg 68.6 kg General appearance: PRESENT: no acute distress, other - Resting comfortably Head exam: PRESENT: normocephalic Eye exam: PRESENT: conjunctiva pink Mouth exam: PRESENT: moist, neck supple Neck exam: ABSENT: JVD Respiratory exam: PRESENT: clear to auscultation ashley Cardiovascular exam: PRESENT: RRR. ABSENT: gallop GI/Abdominal exam: PRESENT: soft. ABSENT: distended Extremities exam: ABSENT: pedal edema Skin exam: PRESENT: dry, warm. ABSENT: cyanosis Results Laboratory Results: 10/25/16 00:00 10/25/16 00:00 10/25/16 10/25/16 00:00 00:00 Creatine Kinase 69 CK-MB (CK-2) 1.55 Troponin I < 0.012 Impressions: Chest X-Ray 10/24/16 00:00 IMPRESSION: No acute cardiopulmonary findings. Head CT 10/24/16 00:00 IMPRESSION: NORMAL BRAIN CT WITHOUT CONTRAST. Brain MRI with MRA 10/25/16 00:00 IMPRESSION: NORMAL MRI OF THE BRAIN WITHOUT INTRAVENOUS GADOLINIUM CONTRAST. NORMAL MRA EXAM [place] OF [place]LEX EVIDENCE OF ACUTE STROKE: NO. Head MRI 10/25/16 00:00 IMPRESSION: NORMAL MRI OF THE BRAIN WITHOUT INTRAVENOUS GADOLINIUM CONTRAST. NORMAL MRA EXAM [place] EVIDENCE OF ACUTE STROKE: NO. 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 - Alcohol dependence with withdrawal with perceptual disturbance Is this a current diagnosis for this admission?: Yes (2) Hyponatremia Is this a current diagnosis for this admission?: Yes (3) Vascular dementia Qualifiers: Dementia behavioral disturbance: without behavioral disturbance Qualified Code(s): F01.50 - Vascular dementia without behavioral disturbance Is this a current diagnosis for this admission?: Yes (4) Hypertension Qualifiers: Hypertension type: essential hypertension Qualified Code(s): I10 - Essential (primary) hypertension Is this a current diagnosis for this admission?: Yes (5) Hyperlipidemia Qualifiers: Hyperlipidemia type: unspecified Qualified Code(s): E78.5 - Hyperlipidemia , unspecified Is this a current diagnosis for this admission?: Yes (6) Diabetes mellitus type 1 Qualifiers: Diabetes mellitus complication status: without complication Qualified Code( s): E10.9 - Type 1 diabetes mellitus without complications Is this a current diagnosis for this admission?: Yes - Time Time Spent with patient: Less than 15 minutes - Plan Summary Plan Summary: Patient stable, continue current management and supportive care. Awaiting bed for subacute rehabilitation.
[2016-10-29] MEDS: ENOXAPARIN SODIUM INJ 40 MG/0.4 ML DISP.SYRIN SUBCUT SCH (10:38)
[2016-10-29] MEDS: CLONAZEPAM 1 MG TABLET PO SCH ×2 (10:39→21:26)
[2016-10-29] MEDS: ASPIRIN 81 MG TABLET, CHEWABLE PO SCH (10:39)
[2016-10-29] MEDS: ESCITALOPRAM OXALATE 10 MG TABLET PO SCH (10:40)
[2016-10-29] MEDS: MULTIVITAMIN TABLET PO SCH (10:40)
[2016-10-29] MEDS: THIAMINE HCL 100 MG TABLET PO SCH (10:40)
[2016-10-29] MEDS: RISPERIDONE 0.25 MG TABLET PO SCH (10:41)
[2016-10-29] MEDS: FOLIC ACID 1 MG TABLET PO SCH (10:44)
[2016-10-29] MEDS: ACETAMINOPHEN 325 MG TABLET PO PRN (12:00)
[2016-10-29] MEDS: TAMSULOSIN HCL 0.4 MG CAP.SR.24H PO SCH (17:57)
[2016-10-29] MEDS: RISPERIDONE 1 MG TABLET PO SCH (21:26)
[2016-10-29] MEDS: ATORVASTATIN CALCIUM 20 MG TABLET PO SCH (21:26)
[2016-10-29] MEDS: NICOTINE 21 MG/24 HR PATCH.TD24 TD SCH (21:28)
[2016-10-29] MEDS: INSULIN GLARGINE,HUM.REC.ANLOG 300 UNIT/3 ML INSULN.PEN SUBCUT SCH (21:28)
[2016-10-29] MEDS: LATANOPROST 0.005% OPH SOLN 2.5 ML OD SCH (21:29)
[2016-10-30] MEDS: LANSOPRAZOLE 30 MG TAB.RAP.DR PO SCH (08:56)
[2016-10-30] MEDS: FOLIC ACID 1 MG TABLET PO SCH (08:57)
[2016-10-30] MEDS: TIMOLOL MALEATE 0.25% OPH SOLN 5 ML OD SCH (08:57)
[2016-10-30] MEDS: ESCITALOPRAM OXALATE 10 MG TABLET PO SCH (09:00)
[2016-10-30] MEDS: THIAMINE HCL 100 MG TABLET PO SCH (09:01)
[2016-10-30] MEDS: MULTIVITAMIN TABLET PO SCH (09:01)
[2016-10-30] MEDS: ASPIRIN 81 MG TABLET, CHEWABLE PO SCH (09:01)
[2016-10-30] MEDS: RISPERIDONE 0.25 MG TABLET PO SCH (09:01)
[2016-10-30] MEDS: CLONAZEPAM 1 MG TABLET PO SCH (09:02)
[2016-10-30] MEDS: ENOXAPARIN SODIUM INJ 40 MG/0.4 ML DISP.SYRIN SUBCUT SCH (09:03)
--- NOTE | 2016-10-30 11:10 | PDOC PROGRESS REPORT ---
Subjective Progress Note for:: 10/30/16 Subjective:: No reported agitation, restlessness, respiratory distress, diarrhea, nor any temperature spikes. Patient stable and doing well with no reported acute problems. No aggressive behavior reported. Physical Exam Vital Signs: Temp Pulse Resp BP Pulse Ox 97.5 F 77 20 116/63 100 10/30/16 08:17 10/30/16 08:17 10/30/16 08:17 10/30/16 08:17 10/30/16 08:17 Intake & Output 10/29/16 10/30/16 10/31/16 06:59 06:59 06:59 Intake Total 574 1058 Output Total 0 800 Balance 574 258 Weight 68.6 kg 69.4 kg General appearance: PRESENT: no acute distress, cooperative Head exam: PRESENT: normocephalic Eye exam: PRESENT: EOMI Mouth exam: PRESENT: moist, neck supple Neck exam: ABSENT: JVD Respiratory exam: PRESENT: clear to auscultation ashley. ABSENT: rhonchi, wheezes Cardiovascular exam: PRESENT: RRR. ABSENT: gallop GI/Abdominal exam: PRESENT: normal bowel sounds, soft. ABSENT: distended Extremities exam: ABSENT: pedal edema Neurological exam: PRESENT: alert, awake Skin exam: PRESENT: dry, other - Multiple ecchymosis on both upper extremities unchanged.. ABSENT: cyanosis Results Laboratory Results: 10/25/16 00:00 10/25/16 00:00 10/25/16 10/25/16 00:00 00:00 Creatine Kinase 69 CK-MB (CK-2) 1.55 Troponin I < 0.012 Impressions: Chest X-Ray 10/24/16 00:00 IMPRESSION: No acute cardiopulmonary findings. Head CT 10/24/16 00:00 IMPRESSION: NORMAL BRAIN CT WITHOUT CONTRAST. Brain MRI with MRA 10/25/16 00:00 IMPRESSION: NORMAL MRI OF THE BRAIN WITHOUT INTRAVENOUS GADOLINIUM CONTRAST. NORMAL MRA EXAM [place] OF ALEX EVIDENCE OF ACUTE STROKE: NO. Head MRI 10/25/16 00:00 IMPRESSION: NORMAL MRI OF THE BRAIN WITHOUT INTRAVENOUS GADOLINIUM CONTRAST. NORMAL MRA EXAM [place] OF ALEX EVIDENCE OF ACUTE STROKE: NO. 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 - Alcohol dependence with withdrawal with perceptual disturbance Is this a current diagnosis for this admission?: Yes (2) Hyponatremia Is this a current diagnosis for this admission?: Yes (3) Vascular dementia Qualifiers: Dementia behavioral disturbance: without behavioral disturbance Qualified Code(s): F01.50 - Vascular dementia without behavioral disturbance Is this a current diagnosis for this admission?: Yes (4) Hypertension Qualifiers: Hypertension type: essential hypertension Qualified Code(s): I10 - Essential (primary) hypertension Is this a current diagnosis for this admission?: Yes (5) Hyperlipidemia Qualifiers: Hyperlipidemia type: unspecified Qualified Code(s): E78.5 - Hyperlipidemia , unspecified Is this a current diagnosis for this admission?: Yes (6) Diabetes mellitus type 1 Qualifiers: Diabetes mellitus complication status: without complication Qualified Code( s): E10.9 - Type 1 diabetes mellitus without complications Is this a current diagnosis for this admission?: Yes - Time Time Spent with patient: 15-24 minutes - Plan Summary Plan Summary: Continue current medications and supportive care. Staff from [facility] will reevaluate the patient today hopefully bed offer will be made and so patient can be discharged for rehab and possible long-term care as the family wishes
[2016-10-30] MEDS: TAMSULOSIN HCL 0.4 MG CAP.SR.24H PO SCH (18:00)
[2016-10-31] MEDS: ESCITALOPRAM OXALATE 10 MG TABLET PO SCH (09:20)
[2016-10-31] MEDS: LANSOPRAZOLE 30 MG TAB.RAP.DR PO SCH (09:20)
[2016-10-31] MEDS: FOLIC ACID 1 MG TABLET PO SCH (09:20)
[2016-10-31] MEDS: THIAMINE HCL 100 MG TABLET PO SCH (09:20)
[2016-10-31] MEDS: MULTIVITAMIN TABLET PO SCH (09:21)
[2016-10-31] MEDS: RISPERIDONE 0.25 MG TABLET PO SCH (09:21)
[2016-10-31] MEDS: ASPIRIN 81 MG TABLET, CHEWABLE PO SCH (09:21)
[2016-10-31] MEDS: ENOXAPARIN SODIUM INJ 40 MG/0.4 ML DISP.SYRIN SUBCUT SCH (09:21)
[2016-10-31] MEDS: CLONAZEPAM 1 MG TABLET PO SCH ×2 (09:21→22:22)
[2016-10-31] MEDS: TIMOLOL MALEATE 0.25% OPH SOLN 5 ML OD SCH (09:24)
[2016-10-31] MEDS: HALOPERIDOL 5 MG TABLET PO PRN (12:11)
[2016-10-31] MEDS ORDERED: HALOPERIDOL LACTATE INJ 5 MG/1 ML VIAL ONE (13:45)
[2016-10-31] MEDS ORDERED: HALOPERIDOL LACTATE INJ 5 MG/1 ML VIAL IV PRN (13:54)
--- NOTE | 2016-10-31 14:14 | PDOC PROGRESS REPORT ---
Subjective Progress Note for:: 10/31/16 Subjective:: Patient is confused today. Physical Exam Vital Signs: Temp Pulse Resp BP Pulse Ox 98.4 F 76 20 98/52 L 99 10/31/16 11:28 10/31/16 11:28 10/31/16 11:28 10/31/16 11:28 10/31/16 11:28 Intake & Output 10/30/16 10/31/16 11/01/16 06:59 06:59 06:59 Intake Total 1058 1060 598 Output Total 800 1275 700 Balance 258 -215 -102 Weight 69.4 kg 71.2 kg General appearance: PRESENT: no acute distress Eye exam: PRESENT: conjunctiva pink. ABSENT: scleral icterus Mouth exam: PRESENT: moist, tongue midline Neck exam: ABSENT: JVD Respiratory exam: PRESENT: clear to auscultation ashley. ABSENT: rales, rhonchi, wheezes Cardiovascular exam: PRESENT: RRR. ABSENT: diastolic murmur, rubs, systolic murmur GI/Abdominal exam: PRESENT: normal bowel sounds, soft. ABSENT: distended, guarding, mass, organolmegaly, rebound, tenderness Extremities exam: ABSENT: calf tenderness, clubbing, pedal edema Neurological exam: PRESENT: alert, awake, oriented to person. ABSENT: oriented to place, oriented to time, oriented to situation Psychiatric exam: PRESENT: agitated Skin exam: PRESENT: dry, intact, warm. ABSENT: cyanosis, rash Results Laboratory Results: 10/25/16 00:00 10/25/16 00:00 10/25/16 10/25/16 00:00 00:00 Creatine Kinase 69 CK-MB (CK-2) 1.55 Troponin I < 0.012 Impressions: Chest X-Ray 10/24/16 00:00 IMPRESSION: No acute cardiopulmonary findings. Head CT 10/24/16 00:00 IMPRESSION: NORMAL BRAIN CT WITHOUT CONTRAST. Brain MRI with MRA 10/25/16 00:00 IMPRESSION: NORMAL MRI OF THE BRAIN WITHOUT INTRAVENOUS GADOLINIUM CONTRAST. NORMAL MRA EXAM [place] OF ALEX EVIDENCE OF ACUTE STROKE: NO. Head MRI 10/25/16 00:00 IMPRESSION: NORMAL MRI OF THE BRAIN WITHOUT INTRAVENOUS GADOLINIUM CONTRAST. NORMAL MRA EXAM [place] OF [place]LEX EVIDENCE OF ACUTE STROKE: NO. 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 They have improved. (3) Hyperlipidemia Qualifiers: Hyperlipidemia type: unspecified Qualified Code(s): E78.5 - Hyperlipidemia , unspecified Is this a current diagnosis for this admission?: Yes Plan: Continue with Lipitor. (4) Hypertension Qualifiers: Hypertension type: essential hypertension Qualified Code(s): I10 - Essential (primary) hypertension Is this a current diagnosis for this admission?: Yes Plan: Controlled without medications at this time. (5) Hyponatremia Is this a current diagnosis for this admission?: Yes Plan: Resolved (6) Vascular dementia Qualifiers: Dementia behavioral disturbance: without behavioral disturbance Qualified Code(s): F01.50 - Vascular dementia without behavioral disturbance Is this a current diagnosis for this admission?: Yes Plan: Continue with Risperdal (7) Diabetes mellitus type 1 Qualifiers: Diabetes mellitus complication status: without complication Qualified Code( s): E10.9 - Type 1 diabetes mellitus without complications Is this a current diagnosis for this admission?: Yes Plan: Continue with Lantus and sliding scale insulin. - Time Time Spent with patient: 25-34 minutes - Inpatient Certification Medical Necessity: Need Close Monitoring Due to Risk of Patient Decompensation - Plan Summary Plan Summary: [facility] when a bed becomes available.
[2016-10-31] MEDS: TAMSULOSIN HCL 0.4 MG CAP.SR.24H PO SCH (17:29)
[2016-10-31] MEDS: NICOTINE 21 MG/24 HR PATCH.TD24 TD SCH (22:22)
[2016-10-31] MEDS: RISPERIDONE 1 MG TABLET PO SCH (22:22)
[2016-10-31] MEDS: INSULIN GLARGINE,HUM.REC.ANLOG 300 UNIT/3 ML INSULN.PEN SUBCUT SCH (22:22)
[2016-10-31] MEDS: ATORVASTATIN CALCIUM 20 MG TABLET PO SCH (22:22)
[2016-10-31] MEDS: LATANOPROST 0.005% OPH SOLN 2.5 ML OD SCH (22:23)
[2016-11-01 06:21] LABS: ABSOLUTE BASOPHILS # (AUTO) 0.1 10^3/uL (0.0-0.2); ABSOLUTE EOSINOPHILS # (AUTO) 0.2 10^3/uL (0.0-0.6); ABSOLUTE LYMPHOCYTES (AUTO) 1.6 10^3/uL (0.5-4.7); ABSOLUTE MONOCYTES (AUTO) 0.5 10^3/uL (0.1-1.4); ABSOLUTE NEUT (AUTO) 3.8 10^3/uL (1.7-8.2); EOSINOPHILS % (AUTO) 2.8 % (0-6); HEMATOCRIT 35.2 % (37.9-51.0); HEMOGLOBIN 12.2 g/dL (13.5-17.0); HGB HCT DIFFERENCE 1.4; LYMPHOCYTES % (AUTO) 25.7 % (13-45); MEAN CORPUSCULAR HGB CONC 34.7 g/dL (32.0-36.0); MEAN CORPUSCULAR VOLUME 95 fl (80-97); MONOCYTES % (AUTO) 8.6 % (3-13); SEGMENTED NEUTROPHILS % (AUTO) 61.9 % (42-78); WHITE BLOOD COUNT 6.2 10^3/uL (4.0-10.5)
[2016-11-01 06:31] LABS: BLOOD UREA NITROGEN 24 mg/dL (7-20); CREATININE RESULT 0.84 mg/dL (0.52-1.25); GLUCOSE 107 mg/dL (75-110); POTASSIUM 3.9 mmol/L (3.6-5.0)
[2016-11-01 06:42] LABS: ANION GAP 7 (5-19); CARBON DIOXIDE 27 mmol/L (22-30); CHLORIDE 107 mmol/L (98-107); SODIUM 140.8 mmol/L (137-145)
[2016-11-01] MEDS: ACETAMINOPHEN 325 MG TABLET PO PRN (08:13)
[2016-11-01] MEDS: LANSOPRAZOLE 30 MG TAB.RAP.DR PO SCH (08:13)
[2016-11-01] MEDS: TIMOLOL MALEATE 0.25% OPH SOLN 5 ML OD SCH (08:14)
--- NOTE | 2016-11-01 09:27 | PDOC TRANSFER SUMMARY ---
General - Admit/Disc Date/PCP Admission Date/Primary Care Provider: 10/15/16 08:00 EDNA ALTMAN MD Discharge Date: 11/01/16 - Discharge Diagnosis (1) Alcohol withdrawal Is this a current diagnosis for this admission?: Yes (2) Elevated LFTs Is this a current diagnosis for this admission?: Yes (3) Hyperlipidemia Is this a current diagnosis for this admission?: Yes (4) Hypertension Is this a current diagnosis for this admission?: Yes (5) Hyponatremia Is this a current diagnosis for this admission?: Yes (6) Vascular dementia Is this a current diagnosis for this admission?: Yes (7) Diabetes mellitus type 1 Is this a current diagnosis for this admission?: Yes - Additional Information Resuscitation Status: Full Code Discharge Diet: Cardiac, Diabetic Discharge Activity: Activity As Tolerated Home Medications: Atorvastatin Calcium [Lipitor 20 mg Tablet] 20 mg PO QHS 10/13/16 Cholestyramine (with Sugar) [Cholestyramine Packet] 4 gm PO DAILYP PRN 10/13/16 Escitalopram Oxalate [Lexapro 10 mg Tablet] 10 mg PO DAILY 10/13/16 Esomeprazole Magnesium [Nexium] 40 mg PO DAILY 10/13/16 Insulin Glargine,Hum.rec.anlog [Lantus Solostar] 20 units SQ QHS 10/13/16 Timolol Maleate [Timoptic 0.25% Oph Soln 5 ml] 1 drop OD QAM 10/13/16 Travoprost [Travatan Z] 1 drop OD QHS 10/13/16 Aspirin [Aspirin 81 mg Chewable Tablet] 81 mg PO DAILY tab.chew 11/01/16 Clonazepam [Klonopin 1 mg Tablet] 1 mg PO Q12 #60 tablet 11/01/16 Folic Acid [Folvite 1 mg Tablet] 1 mg PO DAILY tablet 11/01/16 Haloperidol [Haldol 5 mg Tablet] 5 mg PO Q6HP PRN #30 tablet 11/01/16 Insulin Lispro [Humalog Insulin (Lispro) 100 unit/mL] 0 - 12 unit SUBCUT ACHSP PRN unit 11/01/16 Ipratropium/Albuterol Sulfate [Duoneb 3 ml Ampul] 3 ml NEB RTQ4HP PRN vial.neb 11/01/16 Multivitamin [Tab-A-Mariann (Multiple Vitamin) Tablet] 1 tab PO DAILY tablet 11/01 Nicotine [Nicoderm 21 mg/24 Hr Transderm Patch] 1 each TD QHS patch.td24 Risperidone [Risperdal 0.25 mg Tablet] 0.5 mg PO DAILY #30 tablet 11/01/16 Risperidone [Risperdal 1 mg Tablet] 1 mg PO QHS #30 tablet 11/01/16 Tamsulosin HCl [Flomax 0.4 mg Cap.sr] 0.4 mg PO PCSUPPER cap.sr.24h 11/01/16 Thiamine HCl [Thiamine 100 mg Tablet] 100 mg PO DAILY tablet 11/01/16 History of Present Illness Admission Date/PCP: 10/15/16 08:00 EDNA ALTMAN MD History of Present Illness: RADHIKA MARTEL is a 86 year old male, with underlying tobacco dependency, 1-1/2-2 packs per day, type 1 diabetes mellitus, probable hypertension and hyperlipidemia, along with 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 Patient has been discussed with emergency room physician who evaluated the patient. Apparently his last alcohol intake till 3 weeks ago was approximately 2 years ago. Since then, he has been binge drinking wine. Realized this was not the thing to do, and patient stopped drinking altogether approximately 24 hours ago. Patient reportedly called his family stating that a man was sitting on the couch next to him, and when he went into another room and returned, the man was no longer there. As best can be determined, there was never a man there. Patient brought to the emergency room for further evaluation. Denies any hallucinations at present. He has had 4 episodes of diarrhea yesterday; none today. Mild abdominal discomfort. No chest pain. No fever or chills, nausea vomiting, or dysuria. Has fallen a number of times recently. Hospital Course Hospital Course: 86-year-old gentleman who presented with hallucinations and confusion most likely related to alcohol use. Patient had been binge drinking. The patient was in delirium tremens when he presented. He was treated with benzodiazepines and had slow improvement in his mental status. Patient also carries a diagnosis of dementia. The patient was given IV fluids, thiamine, folate. Patient had episodes of lucidity along with the confusion. At one point during hospital he had some questionable facial droop and a head CT as an MRI showed no acute events. Was felt the patient was unable to go back home as he lives alone and decision made to refer him for rehab to a skilled nurse facility. The patient is being transferred to [facility]. He also had hyponatremia during his hospitalization which has resolved. The patient's other medical problems were stable during this hospitalization. Physical Exam Vital Signs: Temp Pulse Resp BP Pulse Ox 97.5 F 77 16 116/59 L 96 11/01/16 07:41 11/01/16 09:17 11/01/16 09:17 11/01/16 07:41 11/01/16 09:17 Intake & Output 10/31/16 11/01/16 11/02/16 06:59 06:59 06:59 Intake Total 1060 838 Output Total 1275 1475 Balance -215 -637 Weight 71.2 kg 70.8 kg General appearance: PRESENT: no acute distress Eye exam: PRESENT: conjunctiva pink. ABSENT: scleral icterus Ear exam: PRESENT: normal external ear exam Mouth exam: PRESENT: moist, tongue midline Neck exam: ABSENT: JVD Respiratory exam: PRESENT: clear to auscultation ashley. ABSENT: rales, rhonchi, wheezes Cardiovascular exam: PRESENT: RRR. ABSENT: diastolic murmur, rubs, systolic murmur GI/Abdominal exam: PRESENT: normal bowel sounds, soft. ABSENT: distended, guarding, mass, organolmegaly, rebound, tenderness Extremities exam: ABSENT: calf tenderness, clubbing, pedal edema Neurological exam: PRESENT: alert, awake, oriented to person, oriented to place , oriented to time, oriented to situation, CN II-XII grossly intact. ABSENT: motor sensory deficit Psychiatric exam: PRESENT: appropriate affect Skin exam: PRESENT: dry, intact, warm. ABSENT: cyanosis, rash Results Laboratory Results: 11/01/16 05:09 11/01/16 05:09 11/01/16 11/01/16 05:09 05:09 WBC 6.2 RBC 3.70 L Hgb 12.2 L Hct 35.2 L MCV 95 MCH 33.0 MCHC 34.7 RDW 15.0 H Plt Count 277 Seg Neutrophils % 61.9 Lymphocytes % 25.7 Monocytes % 8.6 Eosinophils % 2.8 Basophils % 1.0 Absolute Neutrophils 3.8 Absolute Lymphocytes 1.6 Absolute Monocytes 0.5 Absolute Eosinophils 0.2 Absolute Basophils 0.1 Sodium 140.8 Potassium 3.9 Chloride 107 Carbon Dioxide 27 Anion Gap 7 BUN 24 H Creatinine 0.84 Est GFR ( Amer) > 60 Est GFR (Non-Af Amer) > 60 Glucose 107 Calcium 9.0 10/25/16 10/25/16 00:00 00:00 Creatine Kinase 69 CK-MB (CK-2) 1.55 Troponin I < 0.012 Impressions: Chest X-Ray 10/24/16 00:00 IMPRESSION: No acute cardiopulmonary findings. Head CT 10/24/16 00:00 IMPRESSION: NORMAL BRAIN CT WITHOUT CONTRAST. Brain MRI with MRA 10/25/16 00:00 IMPRESSION: NORMAL MRI OF THE BRAIN WITHOUT INTRAVENOUS GADOLINIUM CONTRAST. NORMAL MRA EXAM CURYUNG OF ALEX EVIDENCE OF ACUTE STROKE: NO. Head MRI 10/25/16 00:00 IMPRESSION: NORMAL MRI OF THE BRAIN WITHOUT INTRAVENOUS GADOLINIUM CONTRAST. NORMAL MRA EXAM CURYUNG OF ALEX EVIDENCE OF ACUTE STROKE: NO. Transfer Plan - Disposition Transfer Plan: Patient is transferred to [facility] for rehabilitation. He is to follow-up with his primary care doctor in 2 weeks. - Time Spent with Patient Time spent with patient: Greater than 30 Minutes Qualifiers PATEINT BEING DISCHARGED WITH ANY OF THE FOLLOWING DIAGNOSIS?: No Plan Discharge Plan: Patient is transferred to [facility]. Time Spent: Greater than 30 Minutes
[2016-11-01] MEDS: MULTIVITAMIN TABLET PO SCH (10:07)
[2016-11-01] MEDS: FOLIC ACID 1 MG TABLET PO SCH (10:08)
[2016-11-01] MEDS: RISPERIDONE 0.25 MG TABLET PO SCH (10:08)
[2016-11-01] MEDS: THIAMINE HCL 100 MG TABLET PO SCH (10:08)
[2016-11-01] MEDS: ESCITALOPRAM OXALATE 10 MG TABLET PO SCH (10:08)
[2016-11-01] MEDS: ASPIRIN 81 MG TABLET, CHEWABLE PO SCH (10:08)
[2016-11-01] MEDS: CLONAZEPAM 1 MG TABLET PO SCH (10:09)
[2016-11-01] MEDS: ENOXAPARIN SODIUM INJ 40 MG/0.4 ML DISP.SYRIN SUBCUT SCH (10:09)
[2016-11-01 17:13] VITALS: BP 104/60
== END 2016-11-01 17:50 | DRG 897 ==
LOC: ER 17:54 → UNDOADMOB 21:51 → EH 21:51 → 4S 10-13 00:25 → OBSVTOIN 10-15 08:00 → 5 10-20 18:21 → 3S 10-25 00:56
PROVIDERS: ADMIT Family Medicine; ATTEND Family Medicine
DX: F10.231 Alcohol dependence with withdrawal delirium (principal); E87.1 Hypo-osmolality and hyponatremia; R29.810 Facial weakness; E78.5 Hyperlipidemia, unspecified; I10 Essential (primary) hypertension; F01.50 Vascular dementia, unspecified severity, without behavioral disturbance, psychotic disturbance, mood disturbance, and anxiety; E10.9 Type 1 diabetes mellitus without complications; M19.90 Unspecified osteoarthritis, unspecified site; Z79.4 Long term (current) use of insulin; Z79.82 Long term (current) use of aspirin; Z79.899 Other long term (current) drug therapy; F17.210 Nicotine dependence, cigarettes, uncomplicated
CPT/HCPCS: 36415; 70450; 70544; 70551; 71010; 80048; 80053; 80307; 81001; 82140; 82550; 82553; 82962; 83735; 84100; 84443; 84484; 85025; 85610; 85730; 93005; 93010; 99285; G0378; G8978-GP; G8979-GP; J1630; J1650; J1815; J2060; J2405; J3480; J3490; J7030

== ENCOUNTER 2016-11-27 13:50 | Emergency (ER) | payer MEDICARE, MEDICAID ==
--- NOTE | 2016-11-27 14:05 | ER Document Report ---
ED Fall - General Mode of Arrival: Ambulatory Information source: Patient TRAVEL OUTSIDE OF THE [place] IN LAST 30 DAYS: No <ROSARIO SIFUENTES - Last Filed: 11/27/16 14:38> <RUPINDER BILLY - Last Filed: 11/27/16 16:59> <KRISS BILLINGSLEY - Last Filed: 11/27/16 19:49> - General Stated Complaint: FALL ARM PAIN Time Seen by Provider: 11/27/16 13:57 Notes: Patient is an 86-year-old male who presents to the emergency department today with complaints of being found on the ground by his granddaughter. According to EMS, the granddaughter came to check on the patient and he was found on the ground with multiple skin tears. EMS reports on arrival, the patient's BGL was 26. History is somewhat limited. (ROSARIO SIFUENTES) - Related data Allergies/Adverse Reactions: No Known Allergies Allergy (Verified 08/19/16 15:57) Past Medical History - General Information source: Patient, Emergency Med Personnel, [facility] Records - Social History Smoking Status: Never Smoker Cigarette use (# per day): No Frequency of alcohol use: None Drug Abuse: None Lives with: Family Family History: Reviewed & Not Pertinent - Past Medical History Cardiac Medical History: Reports: Hx Hypercholesterolemia - Patient denies same , but prior med list has patient on statin, Hx Hypertension - Patient denies same, but prior med list has patient on antihypertensive Endocrine Medical History: Reports: Hx Diabetes Mellitus Type 1 Musculoskeltal Medical History: Reports Hx Arthritis Past Surgical History: Reports: Hx Appendectomy, Hx Urinary Tract Surgery - prostate, Hx Vascular Surgery - Uncertain specific type, Other - Probable TURP - Immunizations Hx Diphtheria, Pertussis, Tetanus Vaccination: Yes <ROSARIO SIFUENTES - Last Filed: 11/27/16 14:38> Review of Systems - Review of Systems Constitutional: See HPI, Other - Fall EENT: No symptoms reported Cardiovascular: No symptoms reported Respiratory: No symptoms reported Gastrointestinal: No symptoms reported Genitourinary: No symptoms reported Male Genitourinary: No symptoms reported Musculoskeletal: No symptoms reported Skin: See HPI, Other - skin tears Hematologic/Lymphatic: No symptoms reported Neurological/Psychological: No symptoms reported -: Yes All other systems reviewed and negative <ROSARIO SIFUENTES - Last Filed: 11/27/16 14:38> <RUPINDER BILLY - Last Filed: 11/27/16 16:59> <KRISS BILLINGSLEY - Last Filed: 11/27/16 19:49> - Review of Systems Notes: given by EMS (ROSARIO SIFUENTES) Physical Exam <ROSARIO SIFUENTES - Last Filed: 11/27/16 14:38> <RUPINDER BILLY - Last Filed: 11/27/16 16:59> <KRISS BILLINGSLEY - Last Filed: 11/27/16 19:49> - Vital signs Vitals: Temp Resp Pulse Ox 98.2 F 27 H 94 11/27/16 13:56 11/27/16 13:56 11/27/16 13:56 - Notes Notes: PHYSICAL EXAM GENERAL: Alert, interacts appropriately. No acute distress. HEAD: Normocephalic, atraumatic. EYES: Pupils equal, round, and reactive to light. Extraocular movements intact. ENT: Oral mucosa moist, tongue midline. NECK: Full range of motion. Supple. Trachea midline. LUNGS: Clear to auscultation bilaterally, no wheezes, rales, or rhonchi. No respiratory distress. HEART: Regular rate and rhythm. No murmurs, gallops, or rubs. ABDOMEN: Soft, non-tender. Non-distended. Bowel sounds present in all 4 quadrants. EXTREMITIES: Moves all 4 extremities spontaneously. No cyanosis. No bony tenderness with palpation. NEUROLOGICAL: Alert and oriented x2, disoriented to time thinking it is 2001. Normal speech. PSYCH: Normal affect, normal mood. SKIN: Warm, dry, normal turgor. Multiple skin tears along the ulnar surface of the right wrist, right forearm, right elbow, left elbow, right knee, and left knee. Facial erythema. Hypertrophic toenails. (ROSARIO SIFUENTES) Course <ROSARIO SIFUENTES - Last Filed: 11/27/16 14:38> - Laboratory Result Diagrams: 11/27/16 13:55 11/27/16 13:55 <RUPINDER BILLY - Last Filed: 11/27/16 16:59> - Laboratory Result Diagrams: 11/27/16 13:55 11/27/16 13:55 <KRISS BILLINGSLEY - Last Filed: 11/27/16 19:49> - Re-evaluation Re-evalutation: 11/27/16 17:06 CBC shows leukocytosis of 14.3, anemia with hemoglobin 12.2, PT normal at 14.3, CMP shows minimal abnormalities slightly low sodium 135.8, slight low potassium 3.5, CO2 is somewhat elevated at 31, glucose elevated 161, CK elevated at 1146 likely due to mild rhabdomyolysis, CK-MB elevated 7.07, troponin elevated 1.60.165 suspicious for non-STEMI, urinalysis has moderate blood and only 2 RBCs again consistent with rhabdo. Chest x-ray shows right-sided rib fractures ribs 9 and 10, patient is mildly tender in this area, these may be new but it is difficult to tell from the x-ray, CT scan of the head shows no acute process , thoracic and lumbar spine x-rays do show some wedging, always less than 25% and not appears acute. Cervical spine CT does not show any acute process. But there is cervical spondylosis. EKG does not show STEMI. Patient has been given aspirin. Patient is chest pain -free. Discussed patient with Dr. Renan Leung at [facility] in [place], he accepts the patient to his service in transfer. I am waiting on a phone call back from the transfer center. The patient says he has not had a drink in over 30 years I do see that he has had a recent admission for alcohol withdrawal and he is somewhat confused at this time, I have ordered an alcohol level on this patient to see if he is once again started drinking. (RUPINDER BILLY) 11/27/16 19:48 Transport in ED. Patient reevaluated and continues without any pain. He is stable for transport to [facility]. (KRISS BILLINGSLEY) - Vital Signs Vital signs: Temp Pulse Resp BP Pulse Ox 98.2 F 26 H 119/54 L 93 11/27/16 13:56 11/27/16 18:07 11/27/16 18:07 11/27/16 18:07 - Laboratory Laboratory results interpreted by me: 11/27/16 11/27/16 11/27/16 13:55 13:55 13:55 WBC 14.3 H RBC 3.88 L Hgb 12.2 L Hct 36.1 L Seg Neuts % (Manual) 88 H Lymphocytes % (Manual) 4 L Abs Neuts (Manual) 12.6 H Sodium 135.8 L Potassium 3.5 L Chloride 96 L Carbon Dioxide 31 H Glucose 161 H POC Glucose AST 67 H Creatine Kinase 1146 H CK-MB (CK-2) 7.07 H Total Protein 5.8 L Urine Blood 11/27/16 11/27/16 15:09 15:10 WBC RBC Hgb Hct Seg Neuts % (Manual) Lymphocytes % (Manual) Abs Neuts (Manual) Sodium Potassium Chloride Carbon Dioxide Glucose POC Glucose 166 H AST Creatine Kinase CK-MB (CK-2) Total Protein Urine Blood MODERATE H - EKG Interpretation by Me Additional EKG results interpreted by me: 11/27/16 16:59 EKG shows sinus rhythm at a rate of 93, normal axis, normal intervals, no ST segment elevations or depressions, there are T-wave inversions noted in V2, V3, there is low voltage that makes other T waves difficult to identify per my interpretation. (RUPINDER BILLY) Discharge <ROSARIO SIFUENTES - Last Filed: 11/27/16 14:38> <RUPINDER BILLY - Last Filed: 11/27/16 16:59> <KRISS BILLINGSLEY - Last Filed: 11/27/16 19:49> - Discharge Clinical Impression: NSTEMI (non-ST elevated myocardial infarction), Insulin dependent diabetes mellitus, Tobacco dependency Rhabdomyolysis Qualifiers: Rhabdomyolysis type: traumatic Encounter type: initial encounter Qualified Code (s): T79.6XXA - Traumatic ischemia of muscle, initial encounter Condition: Fair Disposition: [facility] Referrals: GINNY ALTMAN MD [Primary Care Provider] - Follow up as needed Scribe Documentation - Scribe Written by Scribe:: Maura Emerson, 11/27/2016 1447 acting as scribe for :: Beckie <ROSARIO SIFUENTES - Last Filed: 11/27/16 14:38>
[2016-11-27] MEDS ORDERED: DIPH/PERTUSS(ACELL)/TETANUS VAC/PF 0.5 ML SYR (>=10YO) IM ONE (14:28)
[2016-11-27 14:55] LABS: HEMATOCRIT 36.1 % (37.9-51.0); HEMOGLOBIN 12.2 g/dL (13.5-17.0); HGB HCT DIFFERENCE 0.5; MEAN CORPUSCULAR HEMOGLOBIN 31.4 pg (27.0-33.4); MEAN CORPUSCULAR HGB CONC 33.8 g/dL (32.0-36.0); MEAN CORPUSCULAR VOLUME 93 fl (80-97); RED BLOOD COUNT 3.88 10^6/uL (4.35-5.55); WHITE BLOOD COUNT 14.3 10^3/uL (4.0-10.5)
[2016-11-27 14:57] LABS: PROTHROMBIN TIME 14.3 SEC (11.4-15.4)
[2016-11-27 15:01] LABS: ALANINE AMINOTRANSFERASE 58 U/L (21-72); ALBUMIN 3.5 g/dL (3.5-5.0); ALKALINE PHOSPHATASE 84 U/L (38-126); ANION GAP 9 (5-19); ASPARTATE AMINO TRANSFERASE 67 U/L (17-59); BILIRUBIN,DIRECT 0.4 mg/dL (0.0-0.4); BILIRUBIN,TOTAL 0.5 mg/dL (0.2-1.3); BLOOD UREA NITROGEN 14 mg/dL (7-20); CALCIUM 8.8 mg/dL (8.4-10.2); CARBON DIOXIDE 31 mmol/L (22-30); CHLORIDE 96 mmol/L (98-107); CREATINE KINASE 1146 U/L (55-170); CREATININE RESULT 0.71 mg/dL (0.52-1.25); GLUCOSE 161 mg/dL (75-110); POTASSIUM 3.5 mmol/L (3.6-5.0); SODIUM 135.8 mmol/L (137-145); TOTAL PROTEIN 5.8 g/dL (6.3-8.2)
--- NOTE | 2016-11-27 15:08 | RADIOLOGY REPORT (SQ) ---
EXAM DESCRIPTION: CT HEAD WITHOUT COMPLETED DATE/TIME: 11/27/2016 2:34 pm REASON FOR STUDY: fall, pain, confusion COMPARISON: 10/25/2016 TECHNIQUE: Axial images acquired through the brain without intravenous contrast. Images reviewed wi th bone, brain and subdural windows. Images stored on PACS. All CT scanners at this facility use dose modulation, iterative reconstruction, and/or weight based d osing when appropriate to reduce radiation dose to as low as reasonably achievable (ALARA). [facility]: Dose Right [facility]: CareDose [facility]: Dose Right [facility]: Teradose 4D [facility]: Smart [employer] RADIATION DOSE: Up-to-date CT equipment and radiation dose reduction techniques were employed. CTDIv ol: 46.4 mGy. DLP: 881 mGy-cm. mGy. LIMITATIONS: None. FINDINGS: VENTRICLES: Normal size and contour. CEREBRUM: No masses. No hemorrhage. No midline shift. No evidence for acute infarction. Normal gra y/white matter differentiation. No areas of low density in the white matter. CEREBELLUM: No masses. No hemorrhage. No alteration of density. No evidence for acute infarction. EXTRAAXIAL SPACES: No fluid collections. No masses. ORBITS AND GLOBE: No intra- or extraconal masses. Normal contour of globe without masses. CALVARIUM: No fracture. PARANASAL SINUSES: No fluid or mucosal thickening. SOFT TISSUES: No mass or hematoma. OTHER: No other significant finding. IMPRESSION: NORMAL BRAIN CT WITHOUT CONTRAST. EVIDENCE OF ACUTE STROKE: NO. COMMENT: Quality ID # 436: Final reports with documentation of one or more dose reduction techniques (e.g., Automated exposure control, adjustment of the mA and/or kV according to patient size, use of iterative reconstruction technique) TECHNICAL DOCUMENTATION: JOB ID: [id number] [employer]- All Rights Reserved
--- NOTE | 2016-11-27 15:11 | RADIOLOGY REPORT (SQ) ---
EXAM DESCRIPTION: CT CERVICAL SPINE WITHOUT COMPLETED DATE/TIME: 11/27/2016 2:34 pm REASON FOR STUDY: fall, pain COMPARISON: None. TECHNIQUE: Axial images acquired through the cervical spine without intravenous contrast. Images re viewed with lung, soft tissue and bone windows. Reconstructed coronal and sagittal MPR images review ed. Images stored on PACS. All CT scanners at this facility use dose modulation, iterative reconstruction, and/or weight based d osing when appropriate to reduce radiation dose to as low as reasonably achievable (ALARA). [facility]: Dose Right [facility]: CareDose [facility]: Dose Right [facility]: Teradose 4D [facility]: Smart [employer] RADIATION DOSE: Up-to-date CT equipment and radiation dose reduction techniques were employed. CTDIv ol: 21.5 mGy. DLP: 492 mGy-cm. mGy. LIMITATIONS: None. FINDINGS: ALIGNMENT: Anatomic. MINERALIZATION: Normal. VERTEBRAL BODIES: No fractures or dislocation. DISCS: Multilevel disc space narrowing with osteophytes. FACETS, LATERAL MASSES, POSTERIOR ELEMENTS: Facet arthropathy. No fractures. No dislocation. No ac asuncion findings. HARDWARE: None in the spine. VISUALIZED RIBS: No fractures. LUNG APICES AND SOFT TISSUES: No significant or acute findings. OTHER: No other significant finding. IMPRESSION: Cervical spondylosis. No acute fracture or malalignment identified. TECHNICAL DOCUMENTATION: JOB ID: [id number] Quality ID # [id number]: Final reports with documentation of one or more dose reduction techniques (e.g., Au tomated exposure control, adjustment of the mA and/or kV according to patient size, use of iterative reconstruction technique) 2010 [employer]- All Rights Reserved
[2016-11-27 15:13] LABS: CREATINE KINASE MB 7.07 ng/mL (<4.55)
[2016-11-27 15:16] LABS: LYMPHOCYTES % (MANUAL) 4 % (13-45); TOTAL CELLS COUNTED 100
[2016-11-27 15:17] LABS: ANISOCYTOSIS SLIGHT; BASOPHILS % (MANUAL) 0 % (0-2); EOSINOPHILS % (MANUAL) 0 % (0-6); POIKILOCYTOSIS SLIGHT; TOXIC GRANULATION SLIGHT; TROPONIN I 0.165 ng/mL
--- NOTE | 2016-11-27 15:21 | RADIOLOGY REPORT (SQ) ---
EXAM DESCRIPTION: CHEST SINGLE VIEW COMPLETED DATE/TIME: 11/27/2016 2:53 pm REASON FOR STUDY: fall, pain, confusion COMPARISON: 10/13/2015 EXAM PARAMETERS: NUMBER OF VIEWS: One view. TECHNIQUE: 2 supine views. . RADIATION DOSE: NA LIMITATIONS: None. FINDINGS: LUNGS AND PLEURA: No opacities, masses or pneumothorax. No pleural effusion. MEDIASTINUM AND HILAR STRUCTURES: No masses. Contour normal. Calcified node noted. HEART AND VASCULAR STRUCTURES: Heart normal in size. Normal vasculature. BONES: Fracture deformity lateral 9th 10th rib, likely old. Correlate clinically. HARDWARE: None in the chest. OTHER: No other significant finding. IMPRESSION: Nothing acute. COMMENT: Fracture deformity of 9th and 10th rib laterally on the right likely old. Correlate [facility]. TECHNICAL DOCUMENTATION: JOB ID: [id number]
--- NOTE | 2016-11-27 15:23 | RADIOLOGY REPORT (SQ) ---
EXAM DESCRIPTION: L SPINE WHOLE COMPLETED DATE/TIME: 11/27/2016 2:54 pm REASON FOR STUDY: fall, back pain COMPARISON: None. NUMBER OF VIEWS: Five views including obliques. TECHNIQUE: AP, lateral, oblique, and sacral radiographic images acquired of the lumbar spine. LIMITATIONS: None. FINDINGS: MINERALIZATION: Normal. SEGMENTATION: Normal. No transitional anatomy. ALIGNMENT: Normal. VERTEBRAE: Anterior wedging L1, with approximately 25% loss of height. No obvious acute fracture meir e identified. Correlate clinically. No prior films comparison. DISCS: Multilevel disc space narrowing with osteophytes. POSTERIOR ELEMENTS: Pedicles and facets are intact. No pars defect or posterior arch defects. Facet arthropathy is present. HARDWARE: None in the spine. PARASPINAL SOFT TISSUES: Endovascular aorta iliac repair. PELVIS: Intact as visualized. No fractures or worrisome bone lesions. SI joints intact. OTHER: No other significant finding. IMPRESSION: Arthritic changes. Anterior wedging L1. TECHNICAL DOCUMENTATION: JOB ID: [id number] [employer]- All Rights Reserved
[2016-11-27 15:30] LABS: APPEARANCE,URINE CLEAR; BILIRUBIN,URINE NEGATIVE (NEGATIVE); GLUCOSE, URINE NEGATIVE (NEGATIVE); KETONES,URINE NEGATIVE (NEGATIVE); LEUKOCYTE ESTERASE,URINE NEGATIVE (NEGATIVE); NITRITE,URINE NEGATIVE (NEGATIVE); PROTEIN,URINE NEGATIVE (NEGATIVE); URINE SPECIFIC GRAVITY 1.008; UROBILINOGEN,URINE NEGATIVE mg/dL (<2.0)
--- NOTE | 2016-11-27 15:31 | RADIOLOGY REPORT (SQ) ---
EXAM DESCRIPTION: T SPINE AP/LAT COMPLETED DATE/TIME: 11/27/2016 2:54 pm REASON FOR STUDY: fall, back pain COMPARISON: None. NUMBER OF VIEWS: Two views. TECHNIQUE: AP and lateral radiographic images acquired of the thoracic spine. LIMITATIONS: None. FINDINGS: MINERALIZATION: Normal. ALIGNMENT: Normal. No scoliosis. VERTEBRAE: Some arthritic changes. Minor anterior wedging mid thoracic vertebral bodies. No severe compression fractures. DISCS: Fairly well-maintained. HARDWARE: None in the spine. MEDIASTINUM AND SOFT TISSUES: Not well seen. VISUALIZED LUNG LAUREN: Not well seen. OTHER: No other significant finding. IMPRESSION: Minor anterior wedging mid thoracic vertebral bodies. No severe compression fractures. TECHNICAL DOCUMENTATION: JOB ID: [id number] [employer]- All Rights Reserved
[2016-11-27] MEDS ORDERED: LORAZEPAM 0.5 MG TABLET PO ONE (17:05)
[2016-11-27] MEDS ORDERED: ASPIRIN 81 MG TABLET, CHEWABLE PO ONE (17:46)
[2016-11-27 20:02] VITALS: BP 108/94
--- NOTE | 2016-11-27 21:01 | EKG REPORT ---
SEVERITY:- BORDERLINE ECG - SINUS RHYTHM LOW VOLTAGE IN FRONTAL LEADS BORDERLINE T ABNORMALITIES, ANTERIOR LEADS : Confirmed by: Tomeka Wright MD 27-Nov-2016 21:01:00
== END 2016-11-27 20:12 | disposition short-term general hospital (02) ==
LOC: ER 13:50
DX: I21.4 Non-ST elevation (NSTEMI) myocardial infarction (principal); T79.6XXA Traumatic ischemia of muscle, initial encounter; E11.9 Type 2 diabetes mellitus without complications; Z79.4 Long term (current) use of insulin; M79.603 Pain in arm, unspecified; W19.XXXA Unspecified fall, initial encounter
CPT/HCPCS: 93005; 99285; 90471; 36415; 82553; 82962; 80307; 82550; 85025; 85610; 80053; 81001; 84484; 71010; 72110; 72070; 70450; 72125; 90715; 93010; A9270 ×2

== ENCOUNTER 2017-03-04 21:59 | Emergency (ER) | payer MEDICARE, MEDICAID ==
[2017-03-04] MEDS ORDERED: HALOPERIDOL LACTATE INJ 5 MG/1 ML VIAL IM ONE (22:02)
[2017-03-04] MEDS ORDERED: HALOPERIDOL LACTATE INJ 5 MG/1 ML VIAL ONE (22:03)
[2017-03-04 22:19] LABS: ABSOLUTE LYMPHOCYTES (AUTO) 1.3 10^3/uL (0.5-4.7); ABSOLUTE MONOCYTES (AUTO) 1.3 10^3/uL (0.1-1.4); ABSOLUTE NEUT (AUTO) 11.5 10^3/uL (1.7-8.2); BASOPHILS % (AUTO) 0.2 % (0-2); HEMATOCRIT 38.7 % (37.9-51.0); LYMPHOCYTES % (AUTO) 9.6 % (13-45); MEAN CORPUSCULAR HEMOGLOBIN 29.6 pg (27.0-33.4); MEAN CORPUSCULAR HGB CONC 33.7 g/dL (32.0-36.0); MEAN CORPUSCULAR VOLUME 88 fl (80-97); MONOCYTES % (AUTO) 8.9 % (3-13); PLATELET COUNT 242 10^3/uL (150-450); RED CELL DISTRIBUTION WIDTH 14.6 % (11.5-14.0); SEGMENTED NEUTROPHILS % (AUTO) 81.3 % (42-78); TOTAL CELLS COUNTED % (AUTO) 100 %; WHITE BLOOD COUNT 14.1 10^3/uL (4.0-10.5)
[2017-03-04 22:38] LABS: ALANINE AMINOTRANSFERASE 32 U/L (21-72); ALBUMIN 3.7 g/dL (3.5-5.0); ALKALINE PHOSPHATASE 63 U/L (38-126); ANION GAP 8 (5-19); ASPARTATE AMINO TRANSFERASE 35 U/L (17-59); BILIRUBIN,DIRECT 0.2 mg/dL (0.0-0.4); BILIRUBIN,TOTAL 1.4 mg/dL (0.2-1.3); BLOOD UREA NITROGEN 14 mg/dL (7-20); CALCIUM 9.4 mg/dL (8.4-10.2); CARBON DIOXIDE 28 mmol/L (22-30); CHLORIDE 98 mmol/L (98-107); CREATINE KINASE 501 U/L (55-170); GLUCOSE 115 mg/dL (75-110); POTASSIUM 4.3 mmol/L (3.6-5.0); SODIUM 133.7 mmol/L (137-145); TOTAL PROTEIN 5.6 g/dL (6.3-8.2)
[2017-03-04 22:40] LABS: ACETAMINOPHEN < 10 ug/mL (10-30); ALCOHOL < 10 mg/dL (NONE DETECTED); SALICYLATE < 1.0 mg/dL (2.0-20.0)
[2017-03-04] MEDS ORDERED: HALOPERIDOL LACTATE INJ 5 MG/1 ML VIAL IV ONE (22:58)
--- NOTE | 2017-03-04 23:17 | RADIOLOGY REPORT (SQ) ---
EXAM DESCRIPTION: CT HEAD WITHOUT COMPLETED DATE/TIME: 03/04/2017 10:59 pm REASON FOR STUDY: fall ams COMPARISON: November 2016 TECHNIQUE: Axial images acquired through the brain without intravenous contrast. Images reviewed wi th bone, brain and subdural windows. Images stored on PACS. All CT scanners at this facility use dose modulation, iterative reconstruction, and/or weight based d osing when appropriate to reduce radiation dose to as low as reasonably achievable (ALARA). [facility]: Dose Right [facility]: CareDose [facility]: Dose Right [facility]: Teradose 4D [facility]: [employer] RADIATION DOSE: CT Rad equipment meets quality standard of care and radiation dose reduction techniq ues were employed. CTDIvol: 28.0 - 64.6 mGy. DLP: 2002 mGy-cm. mGy. LIMITATIONS: Study is limited due to motion artifact. FINDINGS: VENTRICLES: Prominent. CEREBRUM: A small subdural hematoma is identified in the right posterior frontal and parietal regions with acute and chronic components. The acute component measures 6.3 mm in greatest diameter. There also appears to be a subarachnoid component with blood in the sylvian fissure. No midline shift. A reas of low density in the white matter most likely due to chronic micro-vascular ischemic change. N o evidence for acute infarction. CEREBELLUM: No masses. No hemorrhage. No alteration of density. No evidence for acute infarction. EXTRAAXIAL SPACES: Mild age-related involutional change. No fluid collections. No masses. ORBITS AND GLOBE: No intra- or extraconal masses. Normal contour of globe without masses. CALVARIUM: No fracture. PARANASAL SINUSES: No fluid or mucosal thickening. SOFT TISSUES: No mass or hematoma. OTHER: No other significant finding. IMPRESSION: Subdural hematoma in the right frontal and parietal regions with acute and chronic compo nents as noted above. There also appears to be a subarachnoid component with blood in the sylvian fi ssure on the right. No significant mass effect is seen. MILD CHRONIC CHANGES OF ATROPHY AND MICROVA SCULAR ISCHEMIA. Other findings as noted above EVIDENCE OF ACUTE STROKE: NO. COMMENT: Pertinent findings on the imaging study reported as a CRITICAL RESULT to RODO Clements at23:11 on 03/04/2017. Category of Critical Result: Subdural hematoma with subarachnoid component TECHNICAL DOCUMENTATION: JOB ID: [id number] Quality ID # [id number]: Final reports with documentation of one or more dose reduction techniques (e.g., Au tomated exposure control, adjustment of the mA and/or kV according to patient size, use of iterative reconstruction technique) 2010 [employer]- All Rights Reserved
--- NOTE | 2017-03-04 23:19 | RADIOLOGY REPORT (SQ) ---
EXAM DESCRIPTION: CT CERVICAL SPINE WITHOUT COMPLETED DATE/TIME: 03/04/2017 10:59 pm REASON FOR STUDY: fall ams COMPARISON: November 2016 TECHNIQUE: Axial images acquired through the cervical spine without intravenous contrast. Images re viewed with lung, soft tissue and bone windows. Reconstructed coronal and sagittal MPR images review ed. Images stored on PACS. All CT scanners at this facility use dose modulation, iterative reconstruction, and/or weight based d osing when appropriate to reduce radiation dose to as low as reasonably achievable (ALARA). [facility]: Dose Right [facility]: CareDose [facility]: Dose Right [facility]: Teradose 4D [facility]: [employer] RADIATION DOSE: CT Rad equipment meets quality standard of care and radiation dose reduction techniq ues were employed. CTDIvol: 20.7 mGy. DLP: 951 mGy-cm. mGy. LIMITATIONS: Study is limited somewhat due to motion artifact FINDINGS: ALIGNMENT: Anatomic. MINERALIZATION: Normal. VERTEBRAL BODIES: No fractures or dislocation. DISCS: Multilevel disc space narrowing with osteophytes. FACETS, LATERAL MASSES, POSTERIOR ELEMENTS: Facet arthropathy. No fractures. No dislocation. No ac [place] findings. HARDWARE: None in the spine. VISUALIZED RIBS: No fractures. LUNG APICES AND SOFT TISSUES: No significant or acute findings. OTHER: No other significant finding. IMPRESSION: CHRONIC DEGENERATIVE CHANGES. NO ACUTE FINDINGS. TECHNICAL DOCUMENTATION: JOB ID: [id number] Quality ID # [id number]: Final reports with documentation of one or more dose reduction techniques (e.g., Au tomated exposure control, adjustment of the mA and/or kV according to patient size, use of iterative reconstruction technique) 2010 [employer]- All Rights Reserved
--- NOTE | 2017-03-04 23:20 | RADIOLOGY REPORT (SQ) ---
EXAM DESCRIPTION: CHEST SINGLE VIEW COMPLETED DATE/TIME: 03/04/2017 11:09 pm REASON FOR STUDY: ams COMPARISON: November 2016 EXAM PARAMETERS: NUMBER OF VIEWS: One view. TECHNIQUE: Single frontal radiographic view of the chest acquired. RADIATION DOSE: NA LIMITATIONS: None. FINDINGS: LUNGS AND PLEURA: No opacities, masses or pneumothorax. No pleural effusion. MEDIASTINUM AND HILAR STRUCTURES: No masses. Contour normal. HEART AND VASCULAR STRUCTURES: Heart normal in size. Normal vasculature. BONES: No acute findings. HARDWARE: None in the chest. OTHER: No other significant finding. IMPRESSION: NO ACUTE RADIOGRAPHIC FINDING IN THE CHEST. TECHNICAL DOCUMENTATION: JOB ID: [id number] [employer]- All Rights Reserved
--- NOTE | 2017-03-04 23:22 | RADIOLOGY REPORT (SQ) ---
EXAM DESCRIPTION: HIP BILATERAL COMPLETED DATE/TIME: 03/04/2017 11:09 pm REASON FOR STUDY: fall COMPARISON: None. NUMBER OF VIEWS: Two views TECHNIQUE: AP pelvis and additional frog-leg view of both hips. LIMITATIONS: None. FINDINGS: MINERALIZATION: Normal. HIPS: No acute fracture or dislocation. No worrisome bone lesions. PELVIS AND SACRUM: No acute fracture or dislocation. No worrisome bone lesions. PUBIS AND ISCHIUM: No acute fracture. LOWER LUMBAR SPINE: Degenerative changes are identified in the lower lumbar spine. SOFT TISSUES: No findings. OTHER: Distal end of a vascular endograft is identified. Multiple surgical clips are identified in t he pelvis IMPRESSION: No acute fracture or dislocation. Other findings as noted above TECHNICAL DOCUMENTATION: JOB ID: [id number] [employer]- All Rights Reserved
[2017-03-04] MEDS ORDERED: LEVETIRACETAM 1000 MG/NACL-ISO 1,000 MG/100 ML RTUPB IV ONE (23:38)
[2017-03-05] MEDS ORDERED: NORMAL SALINE 1000 ML 1,000 ML IV ONE (00:03)
--- NOTE | 2017-03-05 00:03 | ER Document Report ---
ED General - General Chief Complaint: Altered Mental Status Stated Complaint: FALL, ALTERED MENTAL STATUS Time Seen by Provider: 03/04/17 22:02 TRAVEL OUTSIDE OF THE [place] IN LAST 30 DAYS: No - HPI Patient complains to provider of: Altered mental status Notes: Patient was found from the ground and his place of residence with altered mental status EMS was called. Last known well was approximately 1224 hrs. Patient does have a history of dementia also has a history of acute alcohol abuse also has been prescribed Ativan according EMS half a bottle Ativan is currently missing. This is not congruent with a fill date. Upon his arrival patient opens eyes spontaneously is confused and will localize to pain will follow some commands however is combative and has to be redirected multiple times. Soft restraints were placed on the patient patient was given chemical restraints. There is some signs of trauma on the patient however nothing to obvious otherwise patient does not contribute to the HPI. - Related Data Allergies/Adverse Reactions: No Known Allergies Allergy (Verified 08/19/16 15:57) Past Medical History - Social History Smoking Status: Current Every Day Smoker Chew tobacco use (# tins/day): No Frequency of alcohol use: unknown Drug Abuse: None Family History: Reviewed & Not Pertinent Patient has suicidal ideation: No Patient has homicidal ideation: No - Past Medical History Cardiac Medical History: Reports: Hx Hypercholesterolemia - Patient denies same , but prior med list has patient on statin, Hx Hypertension - Patient denies same, but prior med list has patient on antihypertensive Denies: Hx Atrial Fibrillation, Hx Congestive Heart Failure, Hx Coronary Artery Disease, Hx DVT, Hx Heart Attack, Hx Pulmonary Embolism Pulmonary Medical History: Denies: Hx Asthma, Hx COPD, Hx Sleep Apnea Neurological Medical History: Denies: Hx Seizures Endocrine Medical History: Reports: Hx Diabetes Mellitus Type 1, Hx Diabetes Mellitus Type 2. Denies: Hx Hyperthyroidism, Hx Hypothyroidism Renal/ Medical History: Denies: Hx Peritoneal Dialysis GI Medical History: Denies: Hx Cirrhosis, Hx Gastroesophageal Reflux Disease, Hx Hepatitis Musculoskeltal Medical History: Reports Hx Arthritis Psychiatric Medical History: Reports: Hx Depression Infectious Medical History: Denies: Hx Hepatitis Past Surgical History: Reports: Hx Appendectomy, Hx Urinary Tract Surgery - prostate, Hx Vascular Surgery - Uncertain specific type, Other - Probable TURP - Immunizations Hx Diphtheria, Pertussis, Tetanus Vaccination: Yes Review of Systems - Review of Systems -: Yes ROS unobtainable due to patient's medical condition - Altered mental status history of dementia Physical Exam - Vital signs Vitals: Resp BP Pulse Ox 16 113/86 H 100 03/04/17 22:02 03/04/17 22:02 03/04/17 22:02 - General General appearance: Anxious, Combative - HEENT Head: Normocephalic, Other - Bruising to the right side of the head Eyes: Normal Pupils: PERRL Anterior chamber: Normal - Respiratory Respiratory status: No respiratory distress Chest status: Nontender Breath sounds: Normal Chest palpation: Normal - Cardiovascular Rhythm: Regular Heart sounds: Normal auscultation - Abdominal Inspection: Normal Distension: No distension Bowel sounds: Normal Tenderness: Nontender - Back Back: Other - Abrasions and skin tears - Extremities General upper extremity: Normal ROM. No: Normal inspection - Multiple abrasions and skin tears bilaterally General lower extremity: Normal ROM. No: Normal inspection - Multiple abrasions and skin tears bilaterally - Neurological Neuro grossly intact: Yes Cognition: Confused Mars Coma Scale Eye Opening: Spontaneous [place] Coma Scale Verbal: Confused Mars Coma Scale Motor: Localizes to Pain [place] Coma Scale Total: 13 - Skin Skin Temperature: Warm Course - Re-evaluation Re-evalutation: 03/04/17 23:55 Patient came in after being found down in his home. Patient has history of dementia. Lives by himself. Last known well was approximate 24 hours prior to EMS arrival. Patient does have history of dementia GCS is 13 upon arrival. Vital signs were stable. Patient was combative fighting with staff therefore was given small doses of Haldol. 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 CT scan of the neck hip and chest are otherwise negative. Patient does have multiple skin tears on his body which will be cleaned and treated for. Discussed with Dr. Tomas trauma team at [facility] and agreed to the patient in transfer. A long discussion with Parul Taylor who identified herself as granddaughter and co-power of studio hand with her father while here at bedside discussed about making the patient a DNR. I did contact Parul with the results of the CAT scan states that she discussed with her father would like to make her grandfather a DNR. Nurse Adri was also witness to the conversation. We will give the patient a dose of Keppra 1 g. Patient otherwise remained stable. Soft restraints have been applied to the patient is that he continues to pull at - Vital Signs Vital signs: Temp Pulse Resp BP Pulse Ox 10 L 114/60 97 03/05/17 02:01 03/05/17 02:01 03/05/17 02:01 - Laboratory Result Diagrams: 03/04/17 22:07 03/04/17 22:07 Laboratory results interpreted by me: 03/04/17 03/04/17 03/04/17 22:07 22:07 22:07 WBC 14.1 H Hgb 13.0 L RDW 14.6 H Seg Neutrophils % 81.3 H Lymphocytes % 9.6 L Absolute Neutrophils 11.5 H Sodium 133.7 L Glucose 115 H POC Glucose Total Bilirubin 1.4 H Ammonia < 8.7 L Creatine Kinase 501 H Total Protein 5.6 L Salicylates < 1.0 L Acetaminophen < 10 L 03/04/17 22:21 WBC Hgb RDW Seg Neutrophils % Lymphocytes % Absolute Neutrophils Sodium Glucose POC Glucose 143 H Total Bilirubin Ammonia Creatine Kinase Total Protein Salicylates Acetaminophen Discharge - Discharge Clinical Impression: Subdural hemorrhage, Subarachnoid hemorrhage, DNR (do not resuscitate), History of alcohol use, Hyponatremia, Multiple skin tears Vascular dementia Qualifiers: Dementia behavioral disturbance: without behavioral disturbance Qualified Code( s): F01.50 - Vascular dementia without behavioral disturbance Referrals: GINNY ALTMAN MD [Primary Care Provider] - Follow up as needed
[2017-03-05 00:16] LABS: INTERNATIONAL RATION (INR) 1.05; PROTHROMBIN TIME 14.5 SEC (11.4-15.4)
[2017-03-05 00:17] LABS: PARTIAL THROMBOPLASTIN TIME 30.7 SEC (23.5-35.8)
[2017-03-05 03:26] LABS: APPEARANCE,URINE CLEAR; BILIRUBIN,URINE NEGATIVE (NEGATIVE); COLOR,URINE YELLOW; GLUCOSE, URINE NEGATIVE (NEGATIVE); KETONES,URINE 20 mg/dL (NEGATIVE); LEUKOCYTE ESTERASE,URINE NEGATIVE (NEGATIVE); NITRITE,URINE NEGATIVE (NEGATIVE); PROTEIN,URINE 30 mg/dL (NEGATIVE); URINE SPECIFIC GRAVITY 1.018
[2017-03-05 03:55] VITALS: BP 100/59
[2017-03-05 04:23] LABS: URINE AMPHETAMINES SCREEN NEGATIVE; URINE BARBITURATES SCREEN NEGATIVE; URINE BENZODIAZEPINES SCREEN UNCONFIRMED POSITIVE; URINE COCAINE SCREEN NEGATIVE; URINE MARIJUANA (THC) SCREEN NEGATIVE; URINE PHENCYCLIDINE SCREEN NEGATIVE
--- NOTE | 2017-03-06 09:27 | EKG REPORT ---
SEVERITY:- BORDERLINE ECG - SINUS RHYTHM SHORT UT INTERVAL, ACCELERATED AV CONDUCTION LOW VOLTAGE IN FRONTAL LEADS : Confirmed by: Lori Martines 06-Mar-2017 09:26:38
== END 2017-03-05 04:10 | disposition short-term general hospital (02) ==
LOC: ER 21:59
DX: S06.5X9A Traumatic subdural hemorrhage with loss of consciousness of unspecified duration, initial encounter (principal); S06.6X9A Traumatic subarachnoid hemorrhage with loss of consciousness of unspecified duration, initial encounter; E87.1 Hypo-osmolality and hyponatremia; F01.50 Vascular dementia, unspecified severity, without behavioral disturbance, psychotic disturbance, mood disturbance, and anxiety; R41.82 Altered mental status, unspecified; F03.90 Unspecified dementia, unspecified severity, without behavioral disturbance, psychotic disturbance, mood disturbance, and anxiety; W19.XXXA Unspecified fall, initial encounter; F17.200 Nicotine dependence, unspecified, uncomplicated
CPT/HCPCS: 93005; 99285; 96372; 96361; 51701; 96374; 96375; 36415; 82962; 80307 ×4; 82140; 82550; 85025; 85610; 85730; 80053; 81001; 71010; 73522; 70450; 72125; 93010; J1630; J7030; J1953

== ENCOUNTER 2017-06-01 06:46 | Emergency (ER) | payer MEDICARE, MEDICAID ==
[2017-06-01] MEDS ORDERED: TAMSULOSIN HCL 0.4 MG CAP.SR.24H PO ONE (07:21)
[2017-06-01] MEDS ORDERED: NORMAL SALINE 500 ML IV ONE (07:21)
--- NOTE | 2017-06-01 07:43 | ER Document Report ---
ED General - General Chief Complaint: Testicular Pain Stated Complaint: TESTICULAR PAIN Time Seen by Provider: 06/01/17 07:21 TRAVEL OUTSIDE OF THE U.[place]. IN LAST 30 DAYS: No - HPI Patient complains to provider of: Right testicle pain Notes: Patient coming in for evaluation of right testicle pain ongoing for the last 3 days. Patient denies any trauma to the right testicle. Patient states that this difficult to urinate however does not not support dysuria. Patient resting company upon my evaluation denies fevers chills nausea vomiting diarrhea. - Related Data Allergies/Adverse Reactions: No Known Allergies Allergy (Verified 08/19/16 15:57) Past Medical History - Social History Smoking Status: Unknown if Ever Smoked Chew tobacco use (# tins/day): No Frequency of alcohol use: None Drug Abuse: None Family History: Reviewed & Not Pertinent Patient has suicidal ideation: No Patient has homicidal ideation: No - Past Medical History Cardiac Medical History: Reports: Hx Hypercholesterolemia - Patient denies same , but prior med list has patient on statin, Hx Hypertension - Patient denies same, but prior med list has patient on antihypertensive Denies: Hx Atrial Fibrillation, Hx Congestive Heart Failure, Hx Coronary Artery Disease, Hx DVT, Hx Heart Attack, Hx Pulmonary Embolism Pulmonary Medical History: Denies: Hx Asthma, Hx COPD, Hx Sleep Apnea Neurological Medical History: Denies: Hx Seizures Endocrine Medical History: Reports: Hx Diabetes Mellitus Type 1, Hx Diabetes Mellitus Type 2. Denies: Hx Hyperthyroidism, Hx Hypothyroidism Renal/ Medical History: Denies: Hx Peritoneal Dialysis GI Medical History: Denies: Hx Cirrhosis, Hx Gastroesophageal Reflux Disease, Hx Hepatitis Musculoskeltal Medical History: Reports Hx Arthritis Psychiatric Medical History: Reports: Hx Depression Infectious Medical History: Denies: Hx Hepatitis Past Surgical History: Reports: Hx Appendectomy, Hx Urinary Tract Surgery - prostate, Hx Vascular Surgery - Uncertain specific type, Other - Probable TURP - Immunizations Hx Diphtheria, Pertussis, Tetanus Vaccination: Yes Review of Systems - Review of Systems Constitutional: No symptoms reported EENT: No symptoms reported Cardiovascular: No symptoms reported Respiratory: No symptoms reported Gastrointestinal: No symptoms reported Genitourinary: No symptoms reported Male Genitourinary: No symptoms reported Musculoskeletal: No symptoms reported Skin: No symptoms reported Hematologic/Lymphatic: No symptoms reported Neurological/Psychological: No symptoms reported Physical Exam - Vital signs Vitals: Temp Pulse Resp BP Pulse Ox 98.9 F 66 18 148/69 H 96 06/01/17 06:51 06/01/17 06:51 06/01/17 06:51 06/01/17 06:51 06/01/17 06:51 Interpretation: Normal - General General appearance: Appears well, Alert - HEENT Head: Normocephalic, Atraumatic Eyes: Normal Pupils: PERRL - Respiratory Respiratory status: No respiratory distress Chest status: Nontender Breath sounds: Normal Chest palpation: Normal - Cardiovascular Rhythm: Regular Heart sounds: Normal auscultation Murmur: No - Abdominal Inspection: Normal Distension: No distension Bowel sounds: Normal Tenderness: Nontender Organomegaly: No organomegaly - Genitourinary Inspection: Other - Patient's right testicle does look to be high riding however does have appropriate cremaster reflex right testicle higher than left. There is Shakira infection in the inguinal folds. Otherwise patient is uncircumcised no other critical findings on examination. Scrotum: Normal - Back Back: Normal, Nontender - Extremities General upper extremity: Normal inspection, Nontender, Normal color, Normal ROM , Normal temperature General lower extremity: Normal inspection, Nontender, Normal color, Normal ROM , Normal temperature, Normal weight bearing. No: Susana's sign - Neurological Neuro grossly intact: Yes Cognition: Normal Orientation: AAOx4 Mars Coma Scale Eye Opening: Spontaneous Mars Coma Scale Verbal: Oriented [place] Coma Scale Motor: Obeys Commands Mars Coma Scale Total: 15 Speech: Normal Motor strength normal: LUE, RUE, LLE, RLE Sensory: Normal - Psychological Associated symptoms: Normal affect, Normal mood - Skin Skin Temperature: Warm Skin Moisture: Dry Skin Color: Normal Course - Re-evaluation Re-evalutation: 06/01/17 14:56 No acute abnormality was seen to explain the patient's right testicle pain. Patient does have cyst structure on the ultrasound no signs of torsion epididymitis urinalysis is otherwise negative. Patient that I would recommend he follows up with local urology. Patient states understanding and agrees with this assessment and plan. - Vital Signs Vital signs: Temp Pulse Resp BP Pulse Ox 98.9 F 62 20 144/80 H 99 06/01/17 06:51 06/01/17 11:27 06/01/17 11:27 06/01/17 11:27 06/01/17 11:27 - Laboratory Result Diagrams: 06/01/17 08:26 06/01/17 11:16 Laboratory results interpreted by me: 06/01/17 11:16 Sodium 133.0 L Glucose 133 H Discharge - Discharge Clinical Impression: Right testicular pain Condition: Good Disposition: HOME, SELF-CARE Instructions: Oral Narcotic Medication ([facility]), Testicular Pain ([facility]) Additional Instructions: At this time the ultrasound of your testicle does not show any acute abnormality that would warrant antibiotics or surgery. The ultrasound does show a benign cyst. Urinalysis does not show any signs of infection. I will highly recommend following up with your primary care physician and/or urologist if pain continues. Recommend taking Tylenol for pain . Return to ER symptoms worsen. Prescriptions: Tramadol HCl [Ultram 50 mg Tablet] 50 mg PO ASDIR PRN #14 tablet PRN Reason: Referrals: SHERRY PAZ PA-C [Primary Care Provider] - Follow up as needed
[2017-06-01] MEDS ORDERED: KETOROLAC TROMETHAMINE INJ/PF 30 MG/1 ML SDV IV ONE (08:04)
[2017-06-01 08:25] LABS: APPEARANCE,URINE CLEAR; BILIRUBIN,URINE NEGATIVE (NEGATIVE); COLOR,URINE COLORLESS; GLUCOSE, URINE NEGATIVE (NEGATIVE); KETONES,URINE NEGATIVE (NEGATIVE)
[2017-06-01 08:26] LABS: LEUKOCYTE ESTERASE,URINE NEGATIVE (NEGATIVE); NITRITE,URINE NEGATIVE (NEGATIVE); PROTEIN,URINE NEGATIVE (NEGATIVE); UROBILINOGEN,URINE NEGATIVE mg/dL (<2.0)
[2017-06-01 08:44] LABS: ABSOLUTE BASOPHILS # (AUTO) 0.1 10^3/uL (0.0-0.2); ABSOLUTE EOSINOPHILS # (AUTO) 0.1 10^3/uL (0.0-0.6); ABSOLUTE LYMPHOCYTES (AUTO) 2.2 10^3/uL (0.5-4.7); ABSOLUTE MONOCYTES (AUTO) 0.8 10^3/uL (0.1-1.4); ABSOLUTE NEUT (AUTO) 6.2 10^3/uL (1.7-8.2); BASOPHILS % (AUTO) 0.6 % (0-2); EOSINOPHILS % (AUTO) 1.4 % (0-6); HEMATOCRIT 44.3 % (37.9-51.0); HEMOGLOBIN 14.8 g/dL (13.5-17.0); LYMPHOCYTES % (AUTO) 23.4 % (13-45); MEAN CORPUSCULAR HEMOGLOBIN 29.8 pg (27.0-33.4); MEAN CORPUSCULAR HGB CONC 33.3 g/dL (32.0-36.0); MEAN CORPUSCULAR VOLUME 89 fl (80-97); MONOCYTES % (AUTO) 8.4 % (3-13); PLATELET COUNT 284 10^3/uL (150-450); RED BLOOD COUNT 4.96 10^6/uL (4.35-5.55); RED CELL DISTRIBUTION WIDTH 13.3 % (11.5-14.0); SEGMENTED NEUTROPHILS % (AUTO) 66.2 % (42-78); TOTAL CELLS COUNTED % (AUTO) 100 %; WHITE BLOOD COUNT 9.3 10^3/uL (4.0-10.5)
--- NOTE | 2017-06-01 10:26 | RADIOLOGY REPORT (SQ) ---
EXAM DESCRIPTION: U/S SCROTUM W/DOPPLER COMPLETED DATE/TIME: 06/01/2017 10:01 am REASON FOR STUDY: right testicle pain COMPARISON: None. TECHNIQUE: Static and realtime hugo scale imaging of the scrotum and testes. Selected color Doppler and spectral images recorded to document blood flow. LIMITATIONS: Slightly limited by patient agitation. FINDINGS: RIGHT: TESTICLE: 3.5 x 2.7 x 1.7 cm. Normal blood flow. Homogeneous except for the presence of a 2 x 3 x 3 mm echogenic focus. EPIDIDYMIS: 7 x 12 x 8 mm with a 2 x 3 x 3 mm cyst. HYDROCELE OR VARICOCELE: No. HERNIA OR EXTRA-TESTICULAR MASS: No. OTHER: No other significant finding. LEFT: TESTICLE: 3.7 x 2.2 x 1.7 cm. There is a 4 x 2 x 2 mm cyst. The testicle is otherwise homogeneous. Normal blood flow. EPIDIDYMIS: Normal. 6 x 6 x 7 mm. HYDROCELE OR VARICOCELE: No. HERNIA OR EXTRA-TESTICULAR MASS: No. OTHER: No other significant finding. IMPRESSION: 1. Normal blood flow is seen bilaterally. 2. There is a small hyperechoic lesion in the right testis. This could represent a small lipoma or hemangioma. Follow-up as clinically indicated. 3. There is a small cyst in the left testis, or perhaps a pair of contiguous cysts. TECHNICAL DOCUMENTATION: JOB ID: [id number] [employer]- All Rights Reserved Reading location - IP/workstation name: [email or web address]
[2017-06-01 11:35] VITALS: BP 144/80
[2017-06-01 11:50] LABS: ANION GAP 7 (5-19); BLOOD UREA NITROGEN 11 mg/dL (7-20); CARBON DIOXIDE 27 mmol/L (22-30); CHLORIDE 99 mmol/L (98-107); GLUCOSE 133 mg/dL (75-110); POTASSIUM 4.2 mmol/L (3.6-5.0)
== END 2017-06-01 11:45 | disposition home or self-care (01) ==
LOC: ER 06:46
DX: N50.811 Right testicular pain (principal); I10 Essential (primary) hypertension; E11.9 Type 2 diabetes mellitus without complications
CPT/HCPCS: 99284; 96361; 96374; 36415; 85025; 80048; 81001; 76870; 93976; J1885; A9270; J7040

== ENCOUNTER 2017-06-16 01:09 | Emergency (ER) | payer MEDICARE, MEDICAID ==
[2017-06-16 01:30] VITALS: BP 107/61
[2017-06-16] MEDS ORDERED: TRAMADOL HCL 50 MG TABLET PO ONE (02:02)
--- NOTE | 2017-06-16 02:05 | ER Document Report ---
ED General - General Chief Complaint: Groin Pain Stated Complaint: RIGHT GROIN PAIN Time Seen by Provider: 06/16/17 01:55 Notes: Patient is a very pleasant 86-year-old male who presents with complaint of recurrent right inguinal pain. He was seen on June 01 initially thought it testicular pain had ultrasounds testicle which does not show any concerning findings. Is later found that he had a right inguinal hernia. Is placed on Ultram which that helped his pain greatly. He is not yet seen a surgeon. She says is now mild Ultram and start hurt again. He says when he wakes up in the mornings and not does not there but as he gets up and walks around but not pops out. Says when he lays back down will typically go away or he can push back in. No fevers. No vomiting. No abdominal pain. No other complaints at this time. TRAVEL OUTSIDE OF THE [place] IN LAST 30 DAYS: No - Related Data Allergies/Adverse Reactions: No Known Allergies Allergy (Verified 06/16/17 01:53) Past Medical History - Social History Smoking Status: Unknown if Ever Smoked Frequency of alcohol use: None Drug Abuse: None Family History: Reviewed & Not Pertinent Patient has suicidal ideation: No Patient has homicidal ideation: No - Past Medical History Cardiac Medical History: Reports: Hx Hypercholesterolemia - Patient denies same , but prior med list has patient on statin, Hx Hypertension - Patient denies same, but prior med list has patient on antihypertensive Denies: Hx Atrial Fibrillation, Hx Congestive Heart Failure, Hx Coronary Artery Disease, Hx DVT, Hx Heart Attack, Hx Pulmonary Embolism Pulmonary Medical History: Denies: Hx Asthma, Hx COPD, Hx Sleep Apnea Neurological Medical History: Denies: Hx Seizures Endocrine Medical History: Reports: Hx Diabetes Mellitus Type 1, Hx Diabetes Mellitus Type 2. Denies: Hx Hyperthyroidism, Hx Hypothyroidism Renal/ Medical History: Denies: Hx Peritoneal Dialysis GI Medical History: Denies: Hx Cirrhosis, Hx Gastroesophageal Reflux Disease, Hx Hepatitis Musculoskeltal Medical History: Reports Hx Arthritis Psychiatric Medical History: Reports: Hx Depression Infectious Medical History: Denies: Hx Hepatitis Past Surgical History: Reports: Hx Appendectomy, Hx Urinary Tract Surgery - prostate, Hx Vascular Surgery - Uncertain specific type, Other - Probable TURP - Immunizations Hx Diphtheria, Pertussis, Tetanus Vaccination: Yes Review of Systems - Review of Systems Notes: My Normal Review Basic REVIEW OF SYSTEMS: CONSTITUTIONAL : Denies fever, chills, or sweats. Denies recent illness. RESPIRATORY: Denies cough, cold, or chest congestion. Denies shortness of breath, difficulty breathing, or wheezing. GASTROINTESTINAL: Denies abdominal pain. Denies nausea, vomiting, or diarrhea. GENITOURINARY: Denies difficulty urinating, painful urination, burning, frequency, or blood in urine. Right inguinal hernia. MUSCULOSKELETAL: Denies neck or back pain or joint pain or swelling. SKIN: Denies rash or skin lesions. ALL OTHER SYSTEMS REVIEWED AND NEGATIVE. Physical Exam - Vital signs Vitals: Temp Pulse Resp BP Pulse Ox 97.8 F 70 16 107/61 97 06/16/17 01:29 06/16/17 01:29 06/16/17 01:29 06/16/17 01:06/16/17 01:29 - Notes Notes: General Appearance: Well nourished, alert, cooperative, no acute distress, no obvious discomfort. Well-appearing. Vitals: reviewed, See vital signs table.lar rythm, No murmur, no rub Abdomen: Normal BS, soft, No rigidity, No abdominal tenderness, No guarding, no rebound Pelvic: Patient has swollen right inguinal area. To palpation he has a right inguinal hernia that is soft and easily reducible with gentle pressure. Patient has a surgical scar in the midline of the suprapubic region. Neuro: speech clear, oriented x 3, normal affect, responds appropriately to questions. Course - Re-evaluation Re-evalutation: 06/16/17 02:15 Patient has a easily reducible right inguinal hernia. He is here mainly because the Ultram was helping his pain is ran out. I told him I would write a prescription for a few more days Ultram but he should eventually follow up with surgeon for evaluation to see if there is anything further that can be done. I informed him that they likely would not want to do surgery at this time because of his age; however' if there is any type of incarceration he will need surgery immediately. Patient encouraged to return to ER immediately if the hernia will not usually reduce with gentle pressure, if he has increased pain, any redness or swelling of her skin, or if he has any further concerns. Patient agrees with plan and will be discharged home. Dictation of this chart was performed using voice recognition software; therefore, there may be some unintended grammatical errors. - Vital Signs Vital signs: Temp Pulse Resp BP Pulse Ox 97.8 F 70 16 107/61 97 06/16/17 01:29 06/16/17 01:29 06/16/17 01:29 06/16/17 01:06/16/17 01:29 Discharge - Discharge Clinical Impression: Inguinal hernia Qualifiers: Obstruction and gangrene presence: without obstruction or gangrene Laterality: unilateral Recurrence: recurrent Qualified Code(s): K40.91 - Unilateral inguinal hernia, without obstruction or gangrene, recurrent Condition: Good Disposition: HOME, SELF-CARE Additional Instructions: Please return to the ER immediately if you develop recurrence of the hernia ( lump) and it will not go away with your gently pushing on it, if it becomes very painful, if you have fevers, or if the skin over the area is red or inflammed appearing. Please call to make an appointment with the surgeon, Dr. Gomez, for evaluation. Prescriptions: Tramadol HCl [Ultram 50 mg Tablet] 50 mg PO Q6HP PRN #15 tablet PRN Reason: Referrals: RAHAT GOMEZ MD [ACTIVE STAFF] - Follow up in 3-5 days
== END 2017-06-16 02:55 | disposition home or self-care (01) ==
LOC: ER 01:09
DX: K40.91 Unilateral inguinal hernia, without obstruction or gangrene, recurrent (principal); R10.30 Lower abdominal pain, unspecified; E78.00 Pure hypercholesterolemia, unspecified; I10 Essential (primary) hypertension; E11.9 Type 2 diabetes mellitus without complications
CPT/HCPCS: 99284; A9270

== ENCOUNTER 2017-07-19 06:54 | Day surgery (SDC) | payer MEDICARE, MEDICAID ==
[2017-07-13 11:21] LABS: HEMATOCRIT 43.2 % (37.9-51.0); HEMOGLOBIN 14.5 g/dL (13.5-17.0); MEAN CORPUSCULAR HEMOGLOBIN 29.5 pg (27.0-33.4); MEAN CORPUSCULAR HGB CONC 33.5 g/dL (32.0-36.0); MEAN CORPUSCULAR VOLUME 88 fl (80-97); PLATELET COUNT 267 10^3/uL (150-450); RED CELL DISTRIBUTION WIDTH 13.8 % (11.5-14.0); WHITE BLOOD COUNT 6.8 10^3/uL (4.0-10.5)
--- NOTE | 2017-07-13 11:49 | RADIOLOGY REPORT (SQ) ---
EXAM DESCRIPTION: CHEST PA/LATERAL COMPLETED DATE/TIME: 07/13/2017 10:54 am REASON FOR STUDY: PRE OP COMPARISON: 2017. TECHNIQUE: Frontal and lateral radiographic views of the chest acquired. NUMBER OF VIEWS: Two view. LIMITATIONS: None. FINDINGS: LUNGS AND PLEURA: Hyperinflated, likely COPD with areas of scar. Projecting over the left lung base, there is a focal nodule which is seen on both views, lingula location. This still may re present nipple shadow, however new parenchymal nodule is in the differential. Consider chest CT with out contrast. MEDIASTINUM AND HILAR STRUCTURES: No masses or contour abnormalities. HEART AND VASCULAR STRUCTURES: Heart normal size. No evidence for failure. BONES: No acute findings. HARDWARE: None in the chest. OTHER: No other significant finding. IMPRESSION: Potential new right upper lobe pulmonary nodule, consider noncontrast chest CT. TECHNICAL DOCUMENTATION: JOB ID: [id number] [employer]- All Rights Reserved Reading location - IP/workstation name: Unknown
[2017-07-13 12:32] LABS: ANION GAP 16 (5-19); BLOOD UREA NITROGEN 12 mg/dL (7-20); CALCIUM 9.9 mg/dL (8.4-10.2); CARBON DIOXIDE 25 mmol/L (22-30); CHLORIDE 108 mmol/L (98-107); GLUCOSE 180 mg/dL (75-110); POTASSIUM 4.9 mmol/L (3.6-5.0); SODIUM 149.3 mmol/L (137-145)
--- NOTE | 2017-07-13 13:40 | EKG REPORT ---
SEVERITY:- BORDERLINE ECG - SINUS RHYTHM LOW VOLTAGE IN FRONTAL LEADS BORDERLINE T ABNORMALITIES, ANTERIOR LEADS : Confirmed by: Chris Tomas MD 13-Jul-2017 13:40:08
[~2017-07-19 06:54] MED LIST: ACETAMINOPHEN 325 MG TABLET PO PRN; CEFAZOLIN SODIUM 2 GM in DEXTROSE 5%-WATER 100 ML IV PRN; LACTATED RINGERS 1000 ML IV PRN
[2017-07-19] MEDS ORDERED: BUPIVACAINE HCL 0.25 % INJ/PF (2.5 MG/1 ML) 30 ML VIAL ONE (07:14)
[2017-07-19] MEDS ORDERED: LIDOCAINE 1% INJ-PF (10 MG/ML) 30 ML SDV ONE (08:48)
[2017-07-19] MEDS ORDERED: MIDAZOLAM 2 MG/2 ML INJ ONE (08:50)
[2017-07-19] MEDS ORDERED: FENTANYL CITRATE INJ/PF 100 MCG/2 ML AMPUL ONE (08:50)
[2017-07-19] MEDS ORDERED: PROPOFOL INJ 200 MG/20 ML VIAL IV ONE (08:51)
[2017-07-19] MEDS ORDERED: OXYCODONE-ACETAMINOPHEN 5-325 MG TABLET PO PRN ×2 (09:11)
[2017-07-19] MEDS ORDERED: PROMETHAZINE HCL INJ 25 MG/1 ML VIAL IV PRN ×2 (09:11)
[2017-07-19] MEDS ORDERED: MEPERIDINE HCL/PF INJ 25 MG/1 ML DISP.SYRIN IV PRN (09:11)
[2017-07-19] MEDS ORDERED: FENTANYL CITRATE INJ/PF 100 MCG/2 ML AMPUL IV PRN ×3 (09:11)
[2017-07-19] MEDS ORDERED: DIPHENHYDRAMINE HCL 50 MG/ML VIAL IV PRN (09:11)
--- NOTE | 2017-07-19 10:55 | Operative Report ---
Nonrecallable Operative Report DATE OF SURGERY: 07/19/17 PREOPERATIVE DIAGNOSIS: Large, symptomatic right inguinal hernia POSTOPERATIVE DIAGNOSIS: same as above OPERATION: Open right inguinal hernia repair with mesh (plug and patch). SURGEON: GIO CARNEY DOUBLER HELPER: JASMYN MCCABE ANESTHESIA: LMAC TISSUE REMOVED OR ALTERED: None COMPLICATIONS: None apparent ESTIMATED BLOOD LOSS: Minimal PROCEDURE: Drains/implants: Bard large plug and patch. After informed consent was obtained, the patient was laid in the supine position. The area of the right groin was prepped and draped in a normal sterile fashion. A 15 blade scalpel was used to create an incision in the right groin between the pubic tubercle and the ASIS. Dissection was carried down through the use of Bovie electrocautery and blunt dissection. The external oblique fascia was found to be weak, attenuated, and largely destroyed. This was secondary to the large right inguinal hernia. The attenuated external oblique was opened and the hernia was identified. There was a large defect in the floor of the inguinal canal. A large Bard plug was used to fill the defect. This was done to keep the large amount of preperitoneal fat from protruding during the hernia repair. The plug was sutured in place using 0 Prolene suture in circumferential interrupted fashion. After the plug was in good place, the patch was brought over the patient. It was sutured to the pubic tubercle 2 using 0 Prolene suture. The 0 Prolene was then run inferiorly to Poupart ligament in simple running fashion. The superior aspect was sutured with 0 Prolene suture onto the internal oblique aponeurosis. After the mesh was sutured circumferentially, the keyhole was examined. The keyhole was large enough to admit the cord plus a tip of the pinky finger. This was found to be adequate. The repair appeared in good order. The external oblique was too attenuated to close. The loose areolar tissue was debrided away. The subcutaneous tissue was closed using 3-0 Vicryl suture in simple running fashion. The overlying skin was closed using 4-0 Vicryl Rapide suture in subcuticular fashion. All sponge, instrument, and needle counts were correct 2. Condition: Stable. Jasmyn Mccabe PAC was scrubbed and present the entirety of the procedure. She assisted with all portions of the procedure. This included opening the skin , dissection of the hernia sac, placement of the plug, placement of the mesh patch, closure of the soft tissue, closure of the skin.
[2017-07-19] MEDS ORDERED: HYDROCODONE/ACETAMINOPHEN 5-325 MG TABLET PO PRN (11:38)
[2017-07-19 13:10] VITALS: BP 130/73
== END 2017-07-19 12:25 | disposition home or self-care (01) ==
LOC: OROUT 06:54
PROVIDERS: ATTEND Surgery
DX: K40.90 Unilateral inguinal hernia, without obstruction or gangrene, not specified as recurrent (principal); E11.9 Type 2 diabetes mellitus without complications; M19.90 Unspecified osteoarthritis, unspecified site; F03.90 Unspecified dementia, unspecified severity, without behavioral disturbance, psychotic disturbance, mood disturbance, and anxiety; F17.210 Nicotine dependence, cigarettes, uncomplicated; Z79.899 Other long term (current) drug therapy; Z79.891 Long term (current) use of opiate analgesic
CPT/HCPCS: 93005; 36415; 82962; 85027; 80048; 71046; 93010; 49505; C1781; J2250; J0690; J3010; J3490; J2704; 830